=== PATIENT | female | born 1965 | race African-American/Black ===

== ENCOUNTER 2017-01-03 07:26 | Inpatient (IN) ==
[2017-01-03] MEDS ORDERED: ALBUTEROL 2.5 MG/3 ML NEB RESP TX PRN (07:50)
[2017-01-03] MEDS ORDERED: ONDANSETRON 4 MG/2 ML VIAL IV PRN (07:50)
[2017-01-03] MEDS ORDERED: NOREPINEPHRINE 8 MG in SODIUM CHLORIDE 0.9% 242 ML IV SCH (08:00)
--- NOTE | 2017-01-03 08:34 | Hospitalist History & Physical ---
Assessment and Plan (1) Cardiac arrest Status: Acute Assessment and plan: The patient's cardiac arrest was witnessed; CPR was initiated; however I feel that the patient's prognosis is poor; pupils are fixated.We will consult cardiology for further recommendations. Current Visit: Yes (2) Sepsis, unspecified organism Status: Resolved Assessment and plan: We will continue empiric antibiotics; repeat deluca cultures. Will initiate sepsis bundle. Current Visit: Yes (3) Pneumonia Status: Acute Assessment and plan: Will continue empiric antibiotics; pulmonary consulted requested. Current Visit: Yes Qualifiers: Pneumonia type: due to unspecified organism History of Present Illness Chief complaint: cardiac arrest History of present illness: This is a very poor and unfortunate 51 year old female that presented to the critical care unit at [facility] as a lateral transfer from [facility] for advanced level of care after witnessed cardiac arrest this morning. The patient has a very complex medical history significant for end-stage renal disease, depression, coronary artery disease, hyperparathyroidism, anemia, hypertension, and dyslipidemia. Apparently, the patient was at a gas station on this morning when she had an acute onset of shortness of breath and collapsed. Upon EMS arrival, she was found to be apneic and pulseless. CPR was initiated and she was found be in pulsesless electrical activity. She was defibrillate, then transported to [facility]. At the time of of arrival, she was intubated and found to be hypotensive and in ventricular fibrillation She was defibrillate and vocative agents were started. Labs were obtained; which were revealed a glucose at 386, creatinine at 5.5, chloride at 93, carbon dioxide at 20, magnesium at 2.4, AST at 70, alkaline phosphate 189. ABG reported PH at 7.24, PCO2 at 55, HCO3 at 23.6 on 100% FIO2. Cardiac panel revealed CK at 101, CK-MB at 2.6, myoglobin at 287, troponin I at 0.13, and Pro-BNP at >20,000. Urine drug screen was essentially unremarkable. Lactic acid was grossly elevated at 11.4. Blood cultures were obtained and empiric antibiotics were started. We were contacted by Dr. Elam regarding the transfer for advanced level of care. Upon discussion with both Dr. Elam and Dr. Jc, the patient will be transferred to [facility] to the hospitalist service. We will consult nephrology, pulmonary, and cardiology to assist with the management of the patient during the clinical encounter. Home Medications Medication Instructions Recorded Confirmed Type Carvedilol [Coreg] 25 mg PO BID 12/29/14 10/16/16 History Ferrous Sulfate 325 mg PO DAILY 12/29/14 10/16/16 History Insulin Glargine [Lantus] 37 unit SUBCUT BEDTIME 12/29/14 10/16/16 History NIFEdipine XL TAB [Procardia Xl] 90 mg PO DAILY 12/29/14 10/16/16 History Omeprazole 20 mg PO DAILY 12/29/14 10/16/16 History Rosuvastatin [Crestor] 20 mg PO DAILY 12/29/14 10/16/16 History Zolpidem Tartrate [Ambien] 10 mg PO BEDTIME 12/29/14 10/16/16 History traMADol TAB [Ultram] 50 mg PO Q6HR 12/29/14 10/16/16 History Cinacalcet HCl [Sensipar] 120 mg PO DAILY W/SUPPER 01/19/15 10/16/16 History Hydralazine HCl 100 mg PO TID 01/19/15 10/16/16 History Insulin Aspart [NovoLOG FlexPen] 0 unit SUBCUT DIRECTED PRN 01/19/15 History Aspirin EC Tab 81 mg PO DAILY tablet 01/20/15 10/16/16 Rx Calcium Carbonate/Vitamin D3 1 each PO DAILY 10/16/16 10/16/16 History [Calcium 600-Vit D3 400 Tablet] Citalopram Hydrobromide [Celexa] 10 mg PO DAILY 10/16/16 10/16/16 History Docusate Sodium Cap [Colace Cap] 100 mg PO DAILY 10/16/16 10/16/16 History Ibuprofen [Advil] 200 mg PO BID PRN 10/16/16 10/16/16 History Metoclopramide HCl 10 mg PO BID 10/16/16 10/16/16 History Sevelamer Carbonate Tab [Renvela 1,600 mg PO BID 10/16/16 10/16/16 History Tab] Sevelamer Carbonate Tab [Renvela 3,200 mg PO TID W/MEALS 10/16/16 10/16/16 History Tab] cefUROXime axetil [Cefuroxime] 250 mg PO BID 10/16/16 10/16/16 History Ticagrelor [Brilinta] 90 mg PO BID #60 tablet 10/17/16 Rx Allergies Allergy/AdvReac Type Severity Reaction Status Date / Time Penicillins Allergy Intermediate ITCHING Verified 10/16/16 10:38 Medical,Surgical,& Family Hx - Medical History Cardio: History of: MA Neurology: No history of: Seizures HEENT: History of: Eye Problem (wears eyeglasses) Endocrine: History of: Diabetes Mellitus (IDDM), Dyslipidemia Renal: History of: Dialysis (Friday, Friday, and Friday), Renal Failure, Renal Problems Gastrointestinal: History of: GERD (history of C-scope) Hematology: History of: Bleeding Problems (blood transfusion history) - Surgical History Cardiac Surgeries: Sugical HX of: Cardiac Catheterization (stents 2009) Abdominal Surgeries: Surgical HX of: Cholecystectomy Reproductive Surgeries: Surgical HX of;: Hysterectomy - Family History Family History: Reports;: Family Cancer, Family Diabetes, Family Hypertension - Social History Smoking Status: Never smoker ROS unobtainable: due to endotracheal tube Exam - Constitutional General appearance: normal weight, no acute distress - Head Head exam: Present: normal inspection, normocephalic, atraumatic - Eye Pupils: Present: fixed - ENT ENT exam: Present: normal exam, normal external ear exam, normal oropharynx - Neck Neck exam: Present: normal inspection. Absent: lymphadenopathy, meningismus, thyromegaly - Respiratory Respiratory exam: Present: decreased breath sounds (bilaterally) - Cardiovascular Cardiovascular exam: Present: regular rate and rhythm. Absent: carotid bruit, diastolic murmur, gallop, JVD, rubs, systolic murmur - GI/Abdominal GI/Abdominal exam: Present: normal bowel sounds, soft. Absent: firm, guarding - Extremities Exam Extremities exam: Present: edema (+3 left lower extremity) - Back Exam Back exam: Present: normal inspection - Neurological Exam Neurological exam: Present: altered, other (unresponsive) - Skin Skin exam: Present: normal color, warm, dry Results - Labs Labs: Labs completed at [facility]; reviewed.
[2017-01-03] MEDS ORDERED: GLUCAGON 1 MG VIAL IM PRN (09:16)
[2017-01-03] MEDS ORDERED: AMIODARONE 450 MG/9 ML VIAL IV ONE (09:20)
--- NOTE | 2017-01-03 09:23 | EKG Report ---
Stationary ECG Study [facility] Test Date: 01/03/2017 9:22:29 AM Pat Name: GERMAINE GALARZA Department: Room: 125 Gender: F Scenario Writer: KANCHAN : 1965 Requested by: Alma Rosa Jc Order Number: [id number] Reading MD: ADRY HOLLOWAY Intervals [place] Rate: 77 P: 84 HI: 168 QRS: 76 QRSD: 102 T: 86 QT: 467 QTc: 499 Interpretive Statements SINUS RHYTHM Electronically Signed On 01-03-17 17:26:50 CDT by ADRY HOLLOWAY [email or web address]
[2017-01-03] MEDS: AMIODARONE INJ 450 MG in DEXTROSE 5% 241 ML IV SCH ×2 (09:25→17:15)
[2017-01-03] MEDS ORDERED: ASPIRIN EC 325 MG TABLET PO SCH (09:30)
--- NOTE | 2017-01-03 09:36 | XRay Report ---
History: Shortness of breath Date: 01/03/2017 at 9:11 AM Study: Chest x-ray AP portable Comparison exam: October 15, 2016 The endotracheal tube is well positioned. A nasogastric tube enters the stomach. There is cardiomegaly. The pulmonary vasculature is slightly prominent and ill-defined. The mediastinal contours are unchanged. There is some patchy and hazy pulmonary edema in the mid to lower lungs bilaterally. There is trace pleural effusion. Osseous structures are unchanged. Impression: Cardiomegaly and evidence of congestive heart failure with alveolar pulmonary edema. The supporting tubes are well-positioned PROCEDURE INTERPRETED AT [facility] DEPARTMENT OF RADIOLOGY Final Report Signed by: Dr. Candelaria Truong
--- NOTE | 2017-01-03 09:43 | Ultrasound Report ---
Exam: Bilateral lower extremity venous Doppler ultrasound Comparison: None Clinical history: Leg edema Technique: Duplex scan of the lower extremity veins using B-mode/grayscale scaled imaging and Doppler spectral analysis and color flow. Findings: Major venous structures of the lower extremities demonstrate a normal course and caliber. Normal color-flow study and spectral analysis. There is normal compression and augmentation of bilateral common femoral, superficial femoral and popliteal veins. The proximal bilateral greater saphenous veins appear to be patent. Impression: No evidence to suggest deep venous thrombosis within either lower extremity. Ultrasound images were captured and stored. PROCEDURE INTERPRETED AT [facility] DEPARTMENT OF RADIOLOGY Final Report Signed by: Dr. Daya Noble
[2017-01-03 09:59] LABS: Basophils # 0.1 10*3/uL (0.0-0.2); Basophils % 0.4 % (0.0-0.8); Eosinophils % 0.3 % (0.00-10.9); Hematocrit 40.1 VOL% (35.7-47.0); Hemoglobin 11.9 GM/DL (12.0-16.0); Immature Granulocytes % 1.4 %; Immature Granulocytes Absolute 0.19 #; Lymphocytes # 1.5 10*3/uL (1.4-4.0); Lymphocytes % 11.2 % (21.3-54.2); Mean Corpuscular HGB Conc 29.7 GM/DL (32-36); Mean Corpuscular Hemoglobin 22 PG (27-34); Mean Corpuscular Volume 72.5 FL (87-102); Mean Platelet Volume 10.8 FL (9.6-12.0); Monocytes # 0.9 10*3/uL (0.11-0.8); Monocytes % 6.7 % (1.7-12.7); NRBC # 0.02 10*3/uL; Neutrophils # 10.7 10*3/uL (1.4-7.4); Platelet Count 327 T/CUMM (130-400); Red Blood Count 5.53 MC/CUMM (3.8-5.5); Red Cell Distribution Width 23.7 % (9.3-17.3); White Blood Count 13.3 T/CUMM (4-12)
[2017-01-03 10:05] LABS: ABG Base Excess -3.1 MMOL/L (-2.5-2.5); ABG HCO3 21.8 MMOL/L (20-26); ABG Oxygen Saturation 99.6 % (95-100); ABG PCO2 42.2 MM HG (35-48); ABG PH 7.336 (7.35-7.45); ABG TCO2 20.3 MMOL/L (23-27); Pt O2 Delivery Device Ventilator
[2017-01-03 10:06] LABS: INR 1.1
[2017-01-03 10:13] LABS: Partial Thromboplastin Time 31.4 SECS (0-40)
[2017-01-03 10:28] LABS: Hypochromasia 2+; Microcytosis 2+
[2017-01-03 10:32] LABS: Albumin 3.4 G/DL (3.4-5.0); Bilirubin,Total 0.5 MG/DL (0.2-1.0); Calcium 8.1 MG/DL (8.5-10.1); Total Protein 7.4 G/DL (6.4-8.3)
[2017-01-03 10:33] LABS: Magnesium 2.9 MG/DL (1.8-2.4); Osmolality,Calculated 298.5 MOS/KG (273-304); Potassium 5.1 MMOL/L (3.5-5.1); Risk Ratio 4.14; VLDL CHOLESTEROL 20.4 MG/DL
[2017-01-03 10:37] LABS: Troponin I Only 0.719 NG/ML (0.00-0.045)
--- NOTE | 2017-01-03 10:43 | CT Report ---
History: Decreased responsiveness. Hypoxic Date: 01/03/2017 Study: CT head without contrast Comparison exam: No previous Transaxial CT sections were obtained through the head without IV contrast. This CT exam was performed using one or more the following dose reduction techniques: Automated exposure control, adjustment of the MA and/or KV according to patient size, or use of iterative reconstruction technique. The ventricles are midline in position without evidence of hydrocephalus. There is no mass or parenchymal hemorrhage. There is no gross CT evidence of acute cortical stroke. There is no extra-axial hematoma. The paranasal sinuses are grossly clear. Impression: No acute intracranial process at this time PROCEDURE INTERPRETED AT [facility] DEPARTMENT OF RADIOLOGY Final Report Signed by: Dr. Candelaria Truong
--- NOTE | 2017-01-03 10:56 | CT Report ---
History: Respiratory failure. Hypoxia Date: 01/03/2017 Study: CT chest with IV contrast with pulmonary embolus technique Comparison exam: November 15, [address] sections were obtained through the lungs following the IV administration of 80 mL of Omnipaque 350 without immediate complication. Multiplanar reconstruction images are also evaluated. The CT exam was performed using one or more of the following dose reduction techniques: Automated exposure control, adjustment of the mA and/or kV according to patient size, or use of iterative reconstruction technique. There is no discrete filling defect within the pulmonary arterial tree to suggest acute pulmonary embolic disease. There is slightly suboptimal opacification of some of the peripheral branches of the pulmonary arterial tree related to contrast timing. There is no thoracic aortic aneurysm or dissection. The endotracheal tube is well positioned with its tip in the trachea superior to the reji. A nasogastric tube is positioned with the tip at the mid stomach body lumen level. There is mild to moderate coronary artery calcification with involvement of the left anterior descending and left circumflex coronary arteries. There is mild right greater than left pleural effusion. There is patchy and hazy airspace disease throughout both lungs compatible with pulmonary edema. There is some dependent atelectasis in the lower lobes. There is no pneumothorax. 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 The partially visualized upper abdomen is unremarkable. Impression: No evidence of acute pulmonary embolic disease. Pulmonary edema with mild bilateral pleural effusion. Coronary artery calcification. PROCEDURE INTERPRETED AT [facility] DEPARTMENT OF RADIOLOGY Final Report Signed by: Dr. Candelaria Truong
--- NOTE | 2017-01-03 10:57 | Pulmonology Consult Note ---
Assessment and Plan (1) Acute respiratory failure Status: Acute Assessment and plan: ABGs look okay. Will reduce ventilator settings. Manage the ventilator until we see what her mental status is white. Appears initially to be significant hypoxic brain injury. Current Visit: Yes (2) End stage renal disease Status: Chronic Assessment and plan: Renal is to see her and arrange dialysis as required. Current Visit: No (3) Coronary artery disease Status: Chronic Assessment and plan: Known previous myocardial infarction with stents. Unclear if she had a myocardial infarction associated with this. Cardiology is seen as well. Current Visit: No (4) Diabetes mellitus Status: Chronic Assessment and plan: Blood sugar of 341. Sliding scale to be ordered by primary service. Current Visit: No (5) Cardiac arrest Status: Acute Assessment and plan: Status post cardiac arrest apparently had ventricular tachycardia ventricular fibrillation. Initial evaluation would indicate hypoxic brain injury with dilated pupils. Plan is for [facility] and see if her mental status improved. Current Visit: Yes History of Present Illness Chief complaint: Post cardiac arrest History of present illness: Ms. Hollingsworth is a 51 year old female with end-stage renal disease on dialysis. She apparently had a cardiopulmonary arrest at a service station in [place] earlier this morning and had CPR at the scene and again at [facility]. She was transferred here and admitted to the CCU to the hospitalist service. She has a history of previous coronary stents. She apparently was taking Trileptal but was not taking it regularly. No other history available from the patient of course. At the present time she is on the ventilator and unresponsive. She does have a history of a previous myocardial infarction, diabetes mellitus, cardiac catheterization with stents in 2009. She has had a cholecystectomy and hysterectomy. Home Medications Medication Instructions Recorded Confirmed Type Carvedilol [Coreg] 25 mg PO BID 12/29/14 10/16/16 History Ferrous Sulfate 325 mg PO DAILY 12/29/14 10/16/16 History Insulin Glargine [Lantus] 37 unit SUBCUT BEDTIME 12/29/14 10/16/16 History NIFEdipine XL TAB [Procardia Xl] 90 mg PO DAILY 12/29/14 10/16/16 History Omeprazole 20 mg PO DAILY 12/29/14 10/16/16 History Rosuvastatin [Crestor] 20 mg PO DAILY 12/29/14 10/16/16 History Zolpidem Tartrate [Ambien] 10 mg PO BEDTIME 12/29/14 10/16/16 History traMADol TAB [Ultram] 50 mg PO Q6HR 12/29/14 10/16/16 History Cinacalcet HCl [Sensipar] 120 mg PO DAILY W/SUPPER 01/19/15 10/16/16 History Hydralazine HCl 100 mg PO TID 01/19/15 10/16/16 History Insulin Aspart [NovoLOG FlexPen] 0 unit SUBCUT DIRECTED PRN 01/19/15 History Aspirin EC Tab 81 mg PO DAILY tablet 01/20/15 10/16/16 Rx Calcium Carbonate/Vitamin D3 1 each PO DAILY 10/16/16 10/16/16 History [Calcium 600-Vit D3 400 Tablet] Citalopram Hydrobromide [Celexa] 10 mg PO DAILY 10/16/16 10/16/16 History Docusate Sodium Cap [Colace Cap] 100 mg PO DAILY 10/16/16 10/16/16 History Ibuprofen [Advil] 200 mg PO BID PRN 10/16/16 10/16/16 History Metoclopramide HCl 10 mg PO BID 10/16/16 10/16/16 History Sevelamer Carbonate Tab [Renvela 1,600 mg PO BID 10/16/16 10/16/16 History Tab] Sevelamer Carbonate Tab [Renvela 3,200 mg PO TID W/MEALS 10/16/16 10/16/16 History Tab] cefUROXime axetil [Cefuroxime] 250 mg PO BID 10/16/16 10/16/16 History Ticagrelor [Brilinta] 90 mg PO BID #60 tablet 10/17/16 Rx Allergies Allergy/AdvReac Type Severity Reaction Status Date / Time Penicillins Allergy Intermediate ITCHING Verified 10/16/16 10:38 ROS unobtainable: due to endotracheal tube, due to mental status Exam (Pulmonay) H&P - Constitutional Vitals: Pulse is 120 systolic blood pressure is 210 respirations that of the ventilator which is 12 and afebrile. She has a Arctic sun device in place to lower her temperature. Her pupils are dilated and nonreactive. Orotracheal tube is in place. She has some minimal twitching around her right eye. Neck is supple. Chest reveals some rales and rhonchi in the bases. Heart rapid rate no murmurs. It is regular. Abdomen obese unable to palpate abdominal organs. Extremities trace of peripheral edema. Medical,Surgical,& Family Hx - Medical History Cardio: History of: MD Neurology: No history of: Seizures HEENT: History of: Eye Problem (wears eyeglasses) Endocrine: History of: Diabetes Mellitus (IDDM), Dyslipidemia Renal: History of: Dialysis (Friday, Friday, and Friday), Renal Failure, Renal Problems Gastrointestinal: History of: GERD (history of C-scope) Hematology: History of: Bleeding Problems (blood transfusion history) - Surgical History Cardiac Surgeries: Sugical HX of: Cardiac Catheterization (stents 2009) Abdominal Surgeries: Surgical HX of: Cholecystectomy Reproductive Surgeries: Surgical HX of;: Hysterectomy - Family History Family History: Reports;: Family Cancer, Family Diabetes, Family Hypertension - Social History Smoking Status: Never smoker Results - Labs CBC & BMP: 01/03/17 09:43 01/03/17 09:43 Lab Results: I have reviewed the past 24 hour labs - Diagnostic Findings Procedure: CT - chest: image reviewed by me (Bilateral pleural effusions with some atelectasis in both lower lobes posteriorly I do not see pulmonary emboli. Await radiologist interpretation as well.)
[2017-01-03] MEDS ORDERED: LEVOFLOXACIN INJ 750 MG in PREMIX 1 EACH IV ONE (11:00)
--- NOTE | 2017-01-03 11:09 | Cardiology History & Physical ---
Assessment and Plan - Time spent with patient Time spent with patient: Greater than 30 minutes (1) Cardiac arrest Status: Acute Assessment and plan: See plan of care listed below Current Visit: Yes (2) Pneumonia Status: Acute Assessment and plan: See plan of care listed below Current Visit: Yes Qualifiers: Pneumonia type: due to unspecified organism (3) Pulmonary edema Status: Acute Assessment and plan: See plan of care listed below Current Visit: Yes (4) Secondary hyperparathyroidism Status: Chronic Assessment and plan: See plan of care listed below Current Visit: No (5) Anemia Status: Chronic Assessment and plan: See plan of care listed below Current Visit: No (6) Coronary artery disease Status: Chronic Assessment and plan: See plan of care listed below Current Visit: No (7) Diabetes mellitus Status: Chronic Assessment and plan: See plan of care listed below Current Visit: No (8) Dyslipidemia Status: Chronic Assessment and plan: See plan of care listed below Current Visit: No (9) End stage renal disease Status: Chronic Assessment and plan: See plan of care listed below Current Visit: No (10) Hypertension Status: Chronic Assessment and plan: See plan of care listed below Current Visit: No (11) S/P angioplasty with stent Status: Chronic Assessment and plan: See plan of care listed below Current Visit: No History of Present Illness Chief complaint: Cardiac arrest History of present illness: LOG RAFTER: DR. JUSTICE Ms. PhanHollingsworth, 51BF, routinely followed by Dr. Justice. She was last seen in cardiology clinic October 24, 2016. Risk factors include: Known coronary artery disease (status post PCI to the mid circumflex October 16, 2016 with MARY, EF 70%), hypertension, dyslipidemia, diabetes, obesity, sedentary lifestyle, PVD (known left internal carotid artery occlusion). End-stage renal disease requiring dialysis, hyperparathyroidism, anemia. Patient was received in lateral transfer from [facility] for advanced level of care after witnessed cardiac arrest this morning. She was feeling poorly this morning. She had complaints of chest pain, shortness of breath and diaphoresis. EMS was summoned however family took her in their car to meet the ambulance. She became unresponsive on the way to meet the ambulance but did not stop breathing nor lose a pulse until the ambulance arrived. CPR was initiated (first assessment was a heart rate of 50). She was intubated, shock and transported to the ER. In the emergency department at [facility]), she expands V. tach again. She was given amiodarone and has been maintained in normal sinus rhythm. Initially, she required pressors however her blood pressure at this point has been extremely high averaging 190/ 100. Heart rate 70s in normal sinus rhythm. The hypothermia protocol has been initiated within the 6 hour window of return of spontaneous circulation protocol. Note, when seen in cardiology clinic in October, patient had been taking Brilinta once day rather than twice daily because it made her feel poorly. At that point , the Brilinta was discontinued and Plavix was initiated. CT chest reveals no PE, lower extremity Dopplers have been negative. CT of head shows no active bleed or stroke. Chest x-ray reveals bilateral interstitial fluid consistent with pulmonary edema and possibly pneumonia. She has been started on antibiotics appropriately. Patient does not make urine therefore urinalysis cannot be obtained. Blood cultures have been obtained. Troponin 0.841. We will continue to follow. Maintain Amiodarone at this point as she did have V. tach requiring cardioversion. Monitor labs closely. Continue [employer] protocol. Of note, I called [facility] in [place], [place] regarding patient's prescriptions. SHE WAS GIVEN A PRESCRIPTION FOR PLAVIX 75MG ORALLY DAILY IN OCTOBER 2016. SHE DID OBTAIN THE FIRST PRESCRIPTION OCTOBER 29, 2016 BUT NEVER RETURNED FOR ADDITIONAL REFILLS. ASSESSMENT/PLAN: 1. CARDIAC ARREST - Now on ventilator without appropriate neurological response at this time. Neurology is on bypass. Poor prognosis. Pupils fixed and dilated. Continue with hypothermia protocol. Echo pending. 2. KNOWN CAD S/P PCI OCTOBER 16, 2016 - restarting Plavix, ASA. Follow CIEs, EKG 3. SEPSIS - BC pending, XRay - possible CAP, anuric. Currently on antibiotic coverage 4. PNEUMONIA - continue current plan of care 5. NON-COMPLIANCE - continue current plan of care 6. HYPERTENSION - Restarted Coreg. Will add Hydralazine now. Avoiding FREDI. 7. DYSLIDEMIA - add lipid lowering agent when liver enzymes stable 8. CKD - Nephrology consulted. Home Medications Medication Instructions Recorded Confirmed Type Carvedilol [Coreg] 25 mg PO BID 12/29/14 10/16/16 History Ferrous Sulfate 325 mg PO DAILY 12/29/14 10/16/16 History Insulin Glargine [Lantus] 37 unit SUBCUT BEDTIME 12/29/14 10/16/16 History NIFEdipine XL TAB [Procardia Xl] 90 mg PO DAILY 12/29/14 10/16/16 History Omeprazole 20 mg PO DAILY 12/29/14 10/16/16 History Rosuvastatin [Crestor] 20 mg PO DAILY 12/29/14 10/16/16 History Zolpidem Tartrate [Ambien] 10 mg PO BEDTIME 12/29/14 10/16/16 History traMADol TAB [Ultram] 50 mg PO Q6HR 12/29/14 10/16/16 History Cinacalcet HCl [Sensipar] 120 mg PO DAILY W/SUPPER 01/19/15 10/16/16 History Hydralazine HCl 100 mg PO TID 01/19/15 10/16/16 History Insulin Aspart [NovoLOG FlexPen] 0 unit SUBCUT DIRECTED PRN 01/19/15 History Aspirin EC Tab 81 mg PO DAILY tablet 01/20/15 10/16/16 Rx Calcium Carbonate/Vitamin D3 1 each PO DAILY 10/16/16 10/16/16 History [Calcium 600-Vit D3 400 Tablet] Citalopram Hydrobromide [Celexa] 10 mg PO DAILY 10/16/16 10/16/16 History Docusate Sodium Cap [Colace Cap] 100 mg PO DAILY 10/16/16 10/16/16 History Ibuprofen [Advil] 200 mg PO BID PRN 10/16/16 10/16/16 History Metoclopramide HCl 10 mg PO BID 10/16/16 10/16/16 History Sevelamer Carbonate Tab [Renvela 1,600 mg PO BID 10/16/16 10/16/16 History Tab] Sevelamer Carbonate Tab [Renvela 3,200 mg PO TID W/MEALS 10/16/16 10/16/16 History Tab] cefUROXime axetil [Cefuroxime] 250 mg PO BID 10/16/16 10/16/16 History Ticagrelor [Brilinta] 90 mg PO BID #60 tablet 10/17/16 Rx Allergies Allergy/AdvReac Type Severity Reaction Status Date / Time Penicillins Allergy Intermediate ITCHING Verified 10/16/16 10:38 ROS unobtainable: due to endotracheal tube, due to encephalopathy Medical,Surgical,& Family Hx - Medical History Cardio: History of: CAD, Hypertension, CT Neurology: No history of: Seizures HEENT: History of: Eye Problem (wears eyeglasses) Endocrine: History of: Diabetes Mellitus (IDDM), Dyslipidemia Renal: History of: Dialysis (Friday, Friday, and Friday), Renal Failure, Renal Problems Gastrointestinal: History of: GERD (history of C-scope) Hematology: History of: Bleeding Problems (blood transfusion history) - Surgical History Cardiac Surgeries: Sugical HX of: Cardiac Catheterization (stents 2009) Abdominal Surgeries: Surgical HX of: Cholecystectomy Reproductive Surgeries: Surgical HX of;: Hysterectomy - Family History Family History: Reports;: Family Cancer, Family Diabetes, Family Hypertension - Social History Smoking Status: Never smoker Cardiology Physical Exam - Constitutional Vitals: Intake and Output 01/02/17 01/03/17 01/03/17 23:59 07:59 15:59 Other: Weight 84.964 kg Patient Weight 01/03/17 23:59 Weight 84.964 kg Exam: General: [Intubated.] [Appears ill] [hypothermia protocol in place ] HEENT: [Pupils equal but nonreactive to light or accommodation. Dilated, fixed. Normocephalic. No jaundice noted. ] Neck: Difficult to assess for JVD due to habitus. No thyromegaly noted. Neck lymphadenopathy. No tracheal deviation. Cardiac: [Regular rate and rhythm.] [No obvious murmur rub or gallop.] Lungs: [Coarse sounds noted throughout. Symmetrical chest wall movements noted. Abdomen: Soft, bowel sounds normoactive. Nontender and nondistended. No abdominal bruit or thrill noted. No masses noted. Extremities: No clubbing, cyanosis noted. [ No edema noted.] Upper extremity pulses 2+. Lower extremity pulses 2+. Capillary refill less than 3 seconds. Skin: No unusual lesions or rashes. No skin breakdown appreciated. Neuro: Not responding to verbal or tactile stimuli. Pupils are fixed and dilated. She is having twitching of the right face and neck. Result/EKG - Labs CBC & BMP: 01/03/17 09:43 01/03/17 09:43 Lab Results: I have reviewed the past 24 hour labs Labs: Laboratory Results - last 24 hr 01/03/17 01/03/1717 09:43 09:43 09:43 WBC 13.3 H RBC 5.53 H Hgb 11.9 L Hct 40.1 MCV 72.5 L MCH 22 L MCHC 29.7 L RDW 23.7 H Plt Count 327 MPV 10.8 Neut % (Auto) 80.0 H Lymph % (Auto) 11.2 L Whitman % (Auto) 6.7 Eos % (Auto) 0.3 Baso % (Auto) 0.4 Neut # (Auto) 10.7 H Lymph # (Auto) 1.5 Whitman # (Auto) 0.9 H Eos # (Auto) 0.0 Baso # (Auto) 0.1 Immature Gran % 1.4 Nucleated RBC % 0.1 Immature Gran # 0.19 Nucleated RBCs # 0.02 Hypochromasia 2+ Microcytosis 2+ INR PT Patient/Control Mix Fibrinogen Circ Anticoag PTT ABG pH ABG pCO2 ABG pO2 ABG HCO3 ABG Total CO2 ABG O2 Saturation ABG Base Excess FiO2 Sodium 139 Potassium 5.1 Chloride 98 Carbon Dioxide 21 Anion Gap 25.1 H BUN 38 H Creatinine 8.50 H GFR Calculation 6 BUN/Creatinine Ratio 4.00 L Glucose 341 H Hemoglobin A1c Calculated Osmolality 298.5 Lactic Acid Calcium 8.1 L Magnesium 2.9 H Total Bilirubin 0.50 AST 132 H ALT 57 H Alkaline Phosphatase 271 H Troponin I 0.719 H B-Natriuretic Peptide 727 H Total Protein 7.4 Albumin 3.4 Globulin 4.0 H Albumin/Globulin Ratio 0.8 L Triglycerides 102 Cholesterol 174 LDL Cholesterol 101.0 VLDL Cholesterol 20.4 HDL Cholesterol 42 Heart Disease Risk Ratio 4.14 01/03/17 01/03/17 01/03/17 09:43 09:43 09:43 WBC RBC Hgb Hct MCV MCH MCHC RDW Plt Count MPV Neut % (Auto) Lymph % (Auto) Whitman % (Auto) Eos % (Auto) Baso % (Auto) Neut # (Auto) Lymph # (Auto) Whitman # (Auto) Eos # (Auto) Baso # (Auto) Immature Gran % Nucleated RBC % Immature Gran # Nucleated RBCs # Hypochromasia Microcytosis INR 1.1 PT Patient/Control Mix 12.0 Fibrinogen Circ Anticoag PTT ABG pH ABG pCO2 ABG pO2 ABG HCO3 ABG Total CO2 ABG O2 Saturation ABG Base Excess FiO2 Sodium Potassium Chloride Carbon Dioxide Anion Gap BUN Creatinine GFR Calculation BUN/Creatinine Ratio Glucose Hemoglobin A1c 7.5 H Calculated Osmolality Lactic Acid 7.8 H Calcium Magnesium Total Bilirubin AST ALT Alkaline Phosphatase Troponin I B-Natriuretic Peptide Total Protein Albumin Globulin Albumin/Globulin Ratio Triglycerides Cholesterol LDL Cholesterol VLDL Cholesterol HDL Cholesterol Heart Disease Risk Ratio 01/03/17 01/03/17 01/03/17 09:43 09:44 10:00 WBC RBC Hgb Hct MCV MCH MCHC RDW Plt Count MPV Neut % (Auto) Lymph % (Auto) Whitman % (Auto) Eos % (Auto) Baso % (Auto) Neut # (Auto) Lymph # (Auto) Whitman # (Auto) Eos # (Auto) Baso # (Auto) Immature Gran % Nucleated RBC % Immature Gran # Nucleated RBCs # Hypochromasia Microcytosis INR PT Patient/Control Mix Fibrinogen 439 H Circ Anticoag PTT 31.4 ABG pH 7.336 L ABG pCO2 42.2 ABG pO2 480.0 H ABG HCO3 21.8 ABG Total CO2 20.3 L ABG O2 Saturation 99.6 ABG Base Excess -3.1 L FiO2 100.00 Sodium Potassium Chloride Carbon Dioxide Anion Gap BUN Creatinine GFR Calculation BUN/Creatinine Ratio Glucose Hemoglobin A1c Calculated Osmolality Lactic Acid Calcium Magnesium Total Bilirubin AST ALT Alkaline Phosphatase Troponin I 0.841 H B-Natriuretic Peptide Total Protein Albumin Globulin Albumin/Globulin Ratio Triglycerides Cholesterol LDL Cholesterol VLDL Cholesterol HDL Cholesterol Heart Disease Risk Ratio - Diagnostic Findings Procedure: Chest x-ray: report reviewed by me, CT: report reviewed by me, Ultrasound: report reviewed by me (Venous ultrasound) - EKG EKG results: interpreted by me EKG shows: sinus rhythm
[2017-01-03] MEDS ORDERED: VANCOMYCIN INJ 1,250 MG in SODIUM CHLORIDE 0.9% 250 ML IV PRN (11:13)
[2017-01-03] MEDS: ALBUTEROL/IPRATROPIUM 3 ML NEB RESP TX SCH ×3 (11:42→20:42)
--- NOTE | 2017-01-03 12:06 | Nephrology Consult Note ---
History of Present Illness Chief complaint: ESRD in a patient admitted with cardiac arrest History of present illness: Ms. Hollingsworth is a 51 year old female who dialyzes on a Friday basis in [facility]. The patient awoke this morning around 440 calling her sister and telling her she was having some shortness of breath. Later on she was at a gas station in her local area when she became unresponsive and had to have CPR administered. The patient was intubated by EMS personnel and brought to her local emergency room where she suffered another cardiac arrest and had readministration of cPR. The patient also received Levophed electrocardio version and amiodarone during her resuscitation efforts. The history is taken from the chart and from the family members as the patient is unable to contribute to the history. The patient's father was visiting with the patient about 2 days prior to her admission and apparently at that time she was complaining of some swelling in her legs. The patient has a history of coronary artery stenting in 2009 and had a heart catheterization done a few months ago which revealed the stents to be open but some progression of coronary artery disease that was to be managed medically. Review of systems unable be obtained due to patient's medical condition. Home Medications Medication Instructions Recorded Confirmed Type Carvedilol [Coreg] 25 mg PO BID 12/29/14 10/16/16 History Ferrous Sulfate 325 mg PO DAILY 12/29/14 10/16/16 History Insulin Glargine [Lantus] 37 unit SUBCUT BEDTIME 12/29/14 10/16/16 History NIFEdipine XL TAB [Procardia Xl] 90 mg PO DAILY 12/29/14 10/16/16 History Omeprazole 20 mg PO DAILY 12/29/14 10/16/16 History Rosuvastatin [Crestor] 20 mg PO DAILY 12/29/14 10/16/16 History Zolpidem Tartrate [Ambien] 10 mg PO BEDTIME 12/29/14 10/16/16 History traMADol TAB [Ultram] 50 mg PO Q6HR 12/29/14 10/16/16 History Cinacalcet HCl [Sensipar] 120 mg PO DAILY W/SUPPER 01/19/15 10/16/16 History Hydralazine HCl 100 mg PO TID 01/19/15 10/16/16 History Insulin Aspart [NovoLOG FlexPen] 0 unit SUBCUT DIRECTED PRN 01/19/15 History Aspirin EC Tab 81 mg PO DAILY tablet 01/20/15 10/16/16 Rx Calcium Carbonate/Vitamin D3 1 each PO DAILY 10/16/16 10/16/16 History [Calcium 600-Vit D3 400 Tablet] Citalopram Hydrobromide [Celexa] 10 mg PO DAILY 10/16/16 10/16/16 History Docusate Sodium Cap [Colace Cap] 100 mg PO DAILY 10/16/16 10/16/16 History Ibuprofen [Advil] 200 mg PO BID PRN 10/16/16 10/16/16 History Metoclopramide HCl 10 mg PO BID 10/16/16 10/16/16 History Sevelamer Carbonate Tab [Renvela 1,600 mg PO BID 10/16/16 10/16/16 History Tab] Sevelamer Carbonate Tab [Renvela 3,200 mg PO TID W/MEALS 10/16/16 10/16/16 History Tab] cefUROXime axetil [Cefuroxime] 250 mg PO BID 10/16/16 10/16/16 History Ticagrelor [Brilinta] 90 mg PO BID #60 tablet 10/17/16 Rx Allergies Allergy/AdvReac Type Severity Reaction Status Date / Time Penicillins Allergy Intermediate ITCHING Verified 10/16/16 10:38 Medical,Surgical,& Family Hx - Medical History Cardio: History of: CT Neurology: No history of: Seizures HEENT: History of: Eye Problem (wears eyeglasses) Endocrine: History of: Diabetes Mellitus (IDDM), Dyslipidemia Renal: History of: Dialysis (Friday, Friday, and Friday), Renal Failure, Renal Problems Gastrointestinal: History of: GERD (history of C-scope) Hematology: History of: Bleeding Problems (blood transfusion history) - Surgical History Cardiac Surgeries: Sugical HX of: Cardiac Catheterization (stents 2009) Abdominal Surgeries: Surgical HX of: Cholecystectomy Reproductive Surgeries: Surgical HX of;: Hysterectomy - Family History Family History: Reports;: Family Cancer, Family Diabetes, Family Hypertension - Social History Smoking Status: Never smoker Frequency of Alcohol Use: None Exam - Vital Signs Vital signs: Period Temp Pulse Resp BP Sys/Trejo Pulse Ox Last 24 Hr 72-74 13-15 95-96 Results - Labs CBC & BMP: 01/03/17 09:43 01/03/17 09:43 Assessment and Plan (1) Pulmonary edema Status: Acute Assessment and plan: This patient has some increased interstitial markings possibly related to pneumonia versus, at this point with her cardiac arrest 2 and tenuous status I am going to hold on dialyzing her until tomorrow. Patient is oxygenating okay presently. Current Visit: Yes (2) Acute respiratory failure Status: Acute Assessment and plan: Continue vent support Current Visit: Yes (3) Cardiac arrest Status: Acute Current Visit: Yes (4) Secondary hyperparathyroidism Status: Acute Current Visit: No (5) Anemia Status: Chronic Current Visit: No (6) Coronary artery disease Status: Chronic Current Visit: No (7) Diabetes mellitus Status: Chronic Current Visit: No (8) Dyslipidemia Status: Chronic Current Visit: No (9) End stage renal disease Status: Chronic Assessment and plan: We will plan on hemodialysis tomorrow Current Visit: No (10) Hypertension Status: Chronic Current Visit: No (11) S/P angioplasty with stent Status: Chronic Current Visit: No
[2017-01-03 12:45] LABS: ABG Base Excess -3.9 MMOL/L (-2.5-2.5); ABG HCO3 21.1 MMOL/L (20-26); ABG Oxygen Saturation 93.9 % (95-100); ABG PCO2 51.5 MM HG (35-48); ABG PH 7.268 (7.35-7.45); ABG PO2 88.2 MM HG (80-95); ABG TCO2 21.4 MMOL/L (23-27); Pt O2 Delivery Device Ventilator
[2017-01-03] MEDS ORDERED: CLOPIDOGREL 75 MG TABLET PO ONE (12:58)
[2017-01-03] MEDS ORDERED: MIDAZOLAM 2 MG/2 ML VIAL IV ONE (13:01)
[2017-01-03] MEDS ORDERED: POTASSIUM CHLORIDE RIDER 20 MEQ in PREMIX 1 EACH IV PRN (13:01)
[2017-01-03] MEDS ORDERED: MAGNESIUM SULF RIDER 2 GM in PREMIX 1 EACH IV ONE (13:01)
[2017-01-03] MEDS: INSULIN LISPRO 100 UNIT/ML SUBCUT SCH ×2 (13:11→15:20)
[2017-01-03] MEDS ORDERED: fentaNYL 100 MCG/2 ML VIAL IV ONE (13:31)
[2017-01-03] MEDS: PANTOPRAZOLE 40 MG VIAL IV SCH (13:55)
[2017-01-03] MEDS: ENOXAPARIN 30 MG/0.3 ML SYRINGE SUBCUT SCH (13:56)
[2017-01-03] MEDS: SODIUM CHLORIDE 0.9% 1,000 ML IV SCH ×2 (13:56→23:35)
[2017-01-03] MEDS: CARVEDILOL 25 MG TABLET PO SCH ×2 (13:57→21:21)
[2017-01-03] MEDS ORDERED: HEPARIN/NACL 0.9% 2 UNITS/ML 500 ML IV ONE (14:18)
[2017-01-03] MEDS: CISATRACURIUM 200 MG in SODIUM CHLORIDE 0.9% 100 ML IV SCH (14:41)
[2017-01-03] MEDS: hydrALAZINE 25 MG TABLET PO SCH ×3 (14:42→21:21)
[2017-01-03] MEDS: fentaNYL INJ 1,250 MCG in SODIUM CHLORIDE 0.9% 225 ML IV SCH (14:53)
[2017-01-03] MEDS: MIDAZOLAM 100 MG in SODIUM CHLORIDE 0.9% 80 ML IV SCH (14:57)
[2017-01-03] MEDS ORDERED: VANCOMYCIN INJ 750 MG in SODIUM CHLORIDE 0.9% 250 ML IV PRN (15:13)
[2017-01-03] MEDS: INSULIN REGULAR DRIP 100 ML IV SCH (15:17)
--- NOTE | 2017-01-03 15:49 | Operative Note ---
Date of procedure: 01/03/17 Pre-op diagnosis: Inadequate venous access Post-op diagnosis: same Procedure: Preoperative diagnosis Inadequate venous access Postoperative diagnosis Same Procedures performed Right internal jugular central line placement Ultrasound guidance and interpretation of images Findings The right internal jugular vein was compressible and was accessed on first stick with venous nonpulsatile blood return. Wire placement was confirmed with ultrasound and the vein was accessed under ultrasound guidance. The catheter was placed at 15 centimeters at the skin level. Complications None apparent Specimen None Anesthesia Local 10 cc lidocaine Indication Inadequate venous access Description of procedure The patient was placed in supine position in his ICU bed. The neck was prepped with chlorhexidine and draped sterilely. Timeout was called. Ultrasound was used to identify the vascular structures in the right neck. The jugular vein is compressible. Local anesthetic was administered under ultrasound guidance. The vein was accessed with a needle on the first attempt under ultrasound guidance. Venous nonpulsatile blood return was obtained. A wire was passed easily into the venous system and placement was confirmed again with ultrasound. A skin incision was made alongside the wire and the dilator was placed over the wire. Seldinger technique was used to place a triple-lumen catheter and it was threaded over the wire up to 15 centimeters at the skin. The catheter was sewn in place at this location. All 3 lm returned blood easily and were flushed with saline. The catheter was sewn in place with 3-0 silk sutures in a Biopatch sterile dressing was placed with Tegaderm. Postoperative plan Chest x-ray Implants: Triple-lumen catheter Surgeon / Physician: Jared Nava Estimated blood loss: none Specimens: none sent Condition: critical Disposition: no change Results - Labs CBC & BMP: 01/03/17 09:43 01/03/17 09:43 Discharge Plan - Discharge Medications No Action Zolpidem Tartrate [Ambien] 10 mg PO BEDTIME traMADol TAB [Ultram] 50 mg PO Q6HR Omeprazole 20 mg PO DAILY NIFEdipine XL TAB [Procardia Xl] 90 mg PO DAILY Insulin Glargine [Lantus] 37 unit SUBCUT BEDTIME Ferrous Sulfate 325 mg PO DAILY Rosuvastatin [Crestor] 20 mg PO DAILY Carvedilol [Coreg] 25 mg PO BID Cinacalcet HCl [Sensipar] 120 mg PO DAILY W/SUPPER Hydralazine HCl 100 mg PO TID Insulin Aspart [NovoLOG FlexPen] 0 unit SUBCUT DIRECTED PRN PRN Reason: elevated blood sugars Aspirin EC Tab 81 mg PO DAILY tablet Sevelamer Carbonate Tab [Renvela Tab] 1,600 mg PO BID Sevelamer Carbonate Tab [Renvela Tab] 3,200 mg PO TID W/MEALS Metoclopramide HCl 10 mg PO BID cefUROXime axetil [Cefuroxime] 250 mg PO BID Calcium Carbonate/Vitamin D3 [Calcium 600-Vit D3 400 Tablet] 1 each PO DAILY Ibuprofen [Advil] 200 mg PO BID PRN PRN Reason: Pain Docusate Sodium Cap [Colace Cap] 100 mg PO DAILY Citalopram Hydrobromide [Celexa] 10 mg PO DAILY Ticagrelor [Brilinta] 90 mg PO BID #60 tablet - Follow Up or Referral - Forms/Instructions
[2017-01-03] MEDS: NOREPINEPHRINE 8 MG in SODIUM CHLORIDE 0.9% 242 ML IV SCH (16:23)
--- NOTE | 2017-01-03 16:25 | XRay Report ---
XR chest 1V portable Indication: Central line placement. Comparison: Chest x-ray 01/03/2017; 0911 hours. Technique: Portable AP chest was performed. Findings: NG tube remains present terminating within the gastric fundus. A second tube or device appears coiled upon itself the apex of the device near the reji. Right IJ central venous catheter terminates within the right subclavian vein. Endotracheal tube is present and terminates at the sternoclavicular junction. Worsened consolidation of airspace opacity is noted in the right perihilar region. The left cardiophrenic angle is no longer identified and air bronchograms are suggested within the left lung base. Borderline cardiomegaly is stable. Bones soft tissues demonstrate no significant change. Impression: 1. Worsened volume overload and/or pulmonary edema is suggested. 2. Right IJ central venous catheter terminates within the right subclavian vein. 3. Some form of tube possibly temperature probe projects within the central chest and is coiled upon itself. The tip lies above the superior margin of the image. 4. Endotracheal tube appears to terminate at the sternoclavicular junction. Findings were discussed with Dr. Nava at 1623 hours, date of exam. 01/03/2017 4:14 PM PROCEDURE INTERPRETED AT [facility] DEPARTMENT OF RADIOLOGY Final Report Signed by: Dr. Chris Alvarez
[2017-01-03] MEDS ORDERED: VANCOMYCIN INJ 1,250 MG in SODIUM CHLORIDE 0.9% 250 ML IV ONE (17:00)
[2017-01-03 17:24] LABS: INR 1.3; PT Patient Result 14.3 SECS
[2017-01-03 17:52] LABS: Calcium 6.9 MG/DL (8.5-10.1); Magnesium 2.3 MG/DL (1.8-2.4); Osmolality,Calculated 308.5 MOS/KG (273-304); Phosphorous 6.5 MG/DL (2.5-4.9); Potassium 3.4 MMOL/L (3.5-5.1)
[2017-01-03 17:53] LABS: Lactic Acid 4.3 MMOL/L (0.4-2.0)
[2017-01-03] MEDS: ROSUVASTATIN 20 MG TABLET PO SCH (21:21)
[2017-01-03] MEDS: MINERAL OIL/PETROLATUM OPH OINT 3.5 GM TUBE BOTH EYES SCH (21:36)
--- NOTE | 2017-01-03 21:45 | Event Note ---
late entry procedure note from 4:30 pm I attempted to place right radial a-line with sterile technique but was unsuccessful. Next I attempted to place right femoral a-line, again with sterile technique, but was unsuccessful in cannulating the artery. Then, we received word (that was later rescinded) that we could not use the [facility] TLC that Dr Nava had placed, so I attempted to place a femoral TLC with sterile technique. I did cannulate the vein but was not able to thread the wire. When I withdrew there was a small hematoma at the site. Pressure was held and the nurses are monitoring the right groin for hematoma.
[2017-01-03] MEDS: cloNIDine 0.1 MG TABLET PO PRN (23:29)
[2017-01-03 23:30] LABS: Calcium 7.8 MG/DL (8.5-10.1); Magnesium 2.6 MG/DL (1.8-2.4); Osmolality,Calculated 306.1 MOS/KG (273-304); Phosphorous 6.2 MG/DL (2.5-4.9); Potassium 3.6 MMOL/L (3.5-5.1)
[2017-01-03 23:44] LABS: INR 1.3; PT Patient Result 13.8 SECS
[2017-01-04] MEDS: ALBUTEROL/IPRATROPIUM 3 ML NEB RESP TX SCH ×6 (00:27→19:39)
[2017-01-04] MEDS: cloNIDine 0.1 MG TABLET PO PRN ×2 (01:09→02:45)
[2017-01-04 03:32] LABS: Allen Test Positive; Pt O2 Delivery Device Ventilator
[2017-01-04 03:33] LABS: ABG Base Excess -1.4 MMOL/L (-2.5-2.5); ABG HCO3 23.8 MMOL/L (20-26); ABG PCO2 42.1 MM HG (35-48); ABG PH 7.371 (7.35-7.45); ABG PO2 80.5 MM HG (80-95); ABG TCO2 25.1 MMOL/L (23-27)
[2017-01-04] MEDS: INSULIN REGULAR DRIP 100 ML IV SCH ×2 (04:03→15:27)
[2017-01-04 04:38] LABS: Basophils % 0.1 % (0.0-0.8); Eosinophils % 0.1 % (0.00-10.9); Hematocrit 33.3 VOL% (35.7-47.0); Immature Granulocytes % 0.6 %; Immature Granulocytes Absolute 0.08 #; Lymphocytes # 0.7 10*3/uL (1.4-4.0); Lymphocytes % 5.6 % (21.3-54.2); Mean Corpuscular Hemoglobin 21 PG (27-34); Mean Corpuscular Volume 70.7 FL (87-102); Mean Platelet Volume 10.8 FL (9.6-12.0); Monocytes # 0.6 10*3/uL (0.11-0.8); Monocytes % 4.9 % (1.7-12.7); Neutrophils % 88.7 % (38.7-73.9); Platelet Count 281 T/CUMM (130-400); Red Blood Count 4.71 MC/CUMM (3.8-5.5); Red Cell Distribution Width 23.2 % (9.3-17.3); White Blood Count 12.4 T/CUMM (4-12)
[2017-01-04 04:45] LABS: Lactic Acid 4.1 MMOL/L (0.4-2.0)
[2017-01-04 05:09] LABS: Alanine Aminotransferase 51 U/L (13-56); Albumin 2.7 G/DL (3.4-5.0); Alkaline Phosphatase 220 U/L (45-117); Aspartate Amino Transferase 276 U/L (0-37); Bilirubin,Total < 0.39 MG/DL (0.2-1.0); Blood Urea Nitrogen 49 MG/DL (7-18); Calcium 8.1 MG/DL (8.5-10.1); Glucose 141 MG/DL (74-106); Magnesium 2.6 MG/DL (1.8-2.4); Osmolality,Calculated 300.8 MOS/KG (273-304); Phosphorous 5.9 MG/DL (2.5-4.9); Potassium 3.2 MMOL/L (3.5-5.1); Sodium 144 MMOL/L (136-145); Total Protein 6.3 G/DL (6.4-8.3)
--- NOTE | 2017-01-04 07:31 | Pulmonology Progress Note ---
Pulmonary - PN: Subj Interval history: This 51-year-old lady had a cardiac arrest outside the hospital. She is a dialysis patient and is receiving dialysis this morning. Her blood pressures now in the 160-170 range. She is off pressors. She was on some IV saline which I have stopped this morning. ABGs look okay. She is on Arctic swollen for now so we will not try to wean her from the ventilator at this time. Exam (Progress Note) - Constitutional Vitals: Period Temp Pulse Resp BP Sys/Trejo Pulse Ox Last 24 Hr 91.0 F-96.7 F 50-79 12-16 160-218/57-91 64-100 Exam: Pulse is about 50 temperature 91.2. Patient is on Arctic sun. Systolic blood pressure in the 170s. Face is symmetrical. Orotracheal tube in place. Neck supple. Chest reveals some rales bilaterally. Heart rate is around 50 no murmurs. Abdomen no masses. Bowel sounds decreased. Extremities she does have 1+ peripheral edema. Results - Labs CBC & BMP: 01/04/17 04:00 01/04/17 04:00 Lab Results: I have reviewed the past 24 hour labs - Diagnostic Findings Procedure: Chest x-ray: image reviewed by me, pending (Pulmonary edema and pretty much a bat wing fashion. Right IJ line turned out into the subclavian vein but it is functioning. ) Assessment and Plan (1) Acute respiratory failure Status: Acute Assessment and plan: ABGs look okay. Will reduce ventilator settings. Manage the ventilator until we see what her mental status is white. Appears initially to be significant hypoxic brain injury. 01/04/2017 ABGs acceptable. Cannot wean at this point. She has significant hypoxic brain injury it appears. Need to finish the Arctic sun protocol before considering any weaning process. Current Visit: Yes (2) End stage renal disease Status: Chronic Assessment and plan: Renal is to see her and arrange dialysis as required. 01/04/2017 patient undergoing dialysis at present. Hopefully this will help with her pulmonary edema. Current Visit: No (3) Coronary artery disease Status: Chronic Assessment and plan: Known previous myocardial infarction with stents. Unclear if she had a myocardial infarction associated with this. Cardiology is seeing as well. Current Visit: No (4) Diabetes mellitus Status: Chronic Assessment and plan: Blood sugar of 341. Sliding scale to be ordered by primary service. 01/04/2017 blood sugars look better. Current Visit: No (5) Cardiac arrest Status: Acute Assessment and plan: Status post cardiac arrest apparently had ventricular tachycardia ventricular fibrillation. Initial evaluation would indicate hypoxic brain injury with dilated pupils. Plan is for Arctic sun and see if her mental status improved. 01/04/2017 post cardiac arrest outside hospital. Appears to have significant brain injury. Continue Arctic sun protocol did not reevaluate neurology cortes in a couple of days Current Visit: Yes
--- NOTE | 2017-01-04 07:42 | ECHO Report ---
Jessica Hollingsworth Exam Date: 01/03/2017 11:17 Referring Physician: Technologist: Justina Hammond RDCS Age: 51 Ht (in): 66 Wt (lb): 187 Gender: F Exam Location: [facility] Echo Indications: Shortness of breath, Chest pain, unspecified BP: 186 / 70 HR: 77 Rhythm: Sinus Technical Quality: Fair IMPRESSIONS Mildly increased left ventricular cavity size. Mild left ventricular hypertrophy. Left ventricular ejection fraction is estimated at 50 %. The right ventricle is normal in size and function. Moderately increased right atrial size. Moderately increased left atrial size. Thickened mitral valve. Mild mitral annular calcification. Trace mitral valve regurgitation. Moderate aortic valve calcification. No aortic valve regurgitation. No aortic valve stenosis. Morphologically normal tricuspid valve. Mild tricuspid valve regurgitation. Tricuspid regurgitation velocities suggest a PAP of 93 mmHg. Morphologically normal pulmonic valve. Mild pulmonary valve regurgitation. Normal pericardium without effusion. Normal ascending aorta dimension. MEASUREMENTS (Male / Female) Normal Values 2D ECHO LV Diastolic Diameter PLAX 5.1 cm 4.2 - 5.9 / 3.9 - 5.3 cm LV Systolic Diameter PLAX 3.8 cm LV Fractional Shortening PLAX 25.9 % IVS Diastolic Thickness 1.1 cm 0.6 - 1.0 / 0.6 - 0.9 cm LVPW Diastolic Thickness 1.6 cm 0.6 - 1.0 / 0.6 - 0.9 cm RV Internal Dim ED PLAX 3.2 cm Aortic Root Diameter 3.0 cm LA Systolic Diameter LX 4.0 cm 3.0 - 4.0 / 2.7 - 3.8 cm DOPPLER TR Peak Velocity 455.0 cm/s TR Peak Gradient 82.8 mmHg FINDINGS Left Ventricle Mildly increased left ventricular cavity size. Mild left ventricular hypertrophy. Left ventricular ejection fraction is estimated at 50 %. Right Ventricle The right ventricle is normal in size and function. Right Atrium Moderately increased right atrial size. Left Atrium Moderately increased left atrial size. Mitral Valve Thickened mitral valve. Mild mitral annular calcification. Trace mitral valve regurgitation. Aortic Valve Moderate aortic valve calcification. No aortic valve regurgitation. No aortic valve stenosis. Tricuspid Valve Morphologically normal tricuspid valve. Mild tricuspid valve regurgitation. Tricuspid regurgitation velocities suggest a PAP of 93 mmHg. Pulmonic Valve Morphologically normal pulmonic valve. Mild pulmonary valve regurgitation. Pericardium Normal pericardium without effusion. Aorta Normal ascending aorta dimension. Tito Garcia MD (Electronically Signed) Final Date: 04 Jan 2017 07:41
[2017-01-04] MEDS: PANTOPRAZOLE 40 MG VIAL IV SCH (07:58)
--- NOTE | 2017-01-04 08:16 | XRay Report ---
XR chest 1V portable Indication: Shortness of breath Comparison: Chest x-ray 01/03/2017 Technique: Portable AP chest was performed. Findings: Multiple tubes and medical support devices appear stable. Temperature probe remains coiled within the upper esophagus apex at the level of the cervicothoracic junction. Diffuse airspace disease within the right lung as well as left perihilar lung and left lower lobe is again demonstrated. Airspace disease in the right minimally worsened in the right infrahilar lung. Heart size is stable. Impression: 1. Appearance of the chest is most suggestive of alveolar pulmonary edema. 2. Possible temperature probe remains coiled within the esophagus. 01/04/2017 8:12 AM PROCEDURE INTERPRETED AT [facility] DEPARTMENT OF RADIOLOGY Final Report Signed by: Dr. Chris Alvarez
--- NOTE | 2017-01-04 08:57 | Hospitalist Progress Note ---
Assessment and Plan - Time spent with patient Time spent with patient: Greater than 30 minutes (1) Cardiac arrest Status: Acute Assessment and plan: Patient sustained [id number] cardiac arrest. She has been followed by cardiology. She is on amiodarone infusion. She is also under the hypothermia protocol. Neurological responses and appropriate. Neurology is on bypass present. Continue current care. Current Visit: Yes (2) End stage renal disease Status: Chronic Assessment and plan: Patient has end-stage renal disease and is currently receiving hemodialysis. Nephrology is assisting. Current Visit: No (3) Hypertension Status: Chronic Assessment and plan: Patient has history of chronic essential hypertension. Blood pressure currently stable. Current Visit: No (4) Diabetes mellitus Status: Chronic Assessment and plan: Patient is currently on insulin infusion with good control of blood sugars. Likely can discontinue and place on Accu-Cheks with subcutaneous sliding scale. Current Visit: No (5) Pneumonia Status: Acute Assessment and plan: Questionable pneumonia on admission. She is been cultured and placed on empiric IV antibiotics. Current Visit: Yes Qualifiers: Pneumonia type: due to unspecified organism (6) Acute respiratory failure Status: Acute Assessment and plan: Acute respiratory failure secondary to arrest. Continuing ventilatory support. Pulmonary is assisting with her care. Current Visit: Yes Hospitalist: Subjective Interval history: Chart has been reviewed and patient examined. This is a 51-year-old female who sustained hospital cardiac arrest. She is being followed by nephrology for end- stage renal disease, pulmonary for ventilatory support and cardiology for her cardiac arrest. She remains unresponsive. She is undergoing cooling protocol. She is requiring no pressors at this time. Exam - Constitutional Vitals: Period Temp Pulse Resp BP Sys/Trejo Pulse Ox Last 24 Hr 91.0 F-94.1 F 50-79 12-16 97-218/49-91 64-100 General appearance: no acute distress - Head Head exam: Present: normocephalic, atraumatic - Eye Pupils: Present: dilated, fixed - ENT ENT exam: Present: other (ET tube in place) - Neck Neck exam: Present: normal inspection - Respiratory Respiratory exam: Present: rales (Few rales bilaterally) - Cardiovascular Cardiovascular exam: Present: bradycardia, regular rate and rhythm - GI/Abdominal GI/Abdominal exam: Present: normal bowel sounds, soft. Absent: tenderness, rebound - Extremities Exam Extremities exam: Present: edema (Mild peripheral edema). Absent: calf tenderness - Neurological Exam Neurological exam: Present: other (Unresponsive to all stimuli) Results - Labs CBC & BMP: 01/04/17 04:00 01/04/17 04:00 Lab Results: I have reviewed the past 24 hour labs - Diagnostic Findings Procedure: Chest x-ray: report reviewed by me
[2017-01-04] MEDS: CARVEDILOL 25 MG TABLET PO SCH ×2 (09:10→21:08)
[2017-01-04] MEDS: hydrALAZINE 25 MG TABLET PO SCH ×4 (09:11→21:08)
--- NOTE | 2017-01-04 09:11 | Cardiology Progress Note ---
Assessment and Plan (1) Cardiac arrest Status: Acute Assessment and plan: 01/04: Patient had a witnessed cardiac arrest outside the hospital. She is currently unresponsive on support. There is some question as to whether she had been taking her medications as prescribed. Certainly stent thrombosis has to be considered particularly if she was not taking her Plavix. Current Visit: Yes (2) Coronary artery disease Status: Chronic Current Visit: No Cardiology - PN: Subj Interval history: Patient is unchanged clinically. She is being dialyzed currently. There are reports that she was not taking her Plavix. She had percutaneous intervention about 8 weeks ago. She will have been high risk for acute closure of her stent if she were not taking her medications as prescribed. I do not know that she had acute closure but certainly her cardiopulmonary arrest makes one think that that is potentially part of the issue. She continues under hypothermic protocol and we are continuing support. Exam (Progress Note) - Constitutional Vitals: Period Temp Pulse Resp BP Sys/Trejo Pulse Ox Last 24 Hr 91.0 F-94.1 F 49-79 12-16 97-218/48-91 64-100 Exam: General:no acute distress. Sedated on the ventilator HEENT: no new lesions, sclerae are clear, mouth and pharynx benign Neck: supple, trachea midline, no JVD noted Lungs: no rales ronchi or wheeze is noted. pt comfortable without accesory muscle use to assist with breathing CV: RRR no murmur rub or gallop is noted. Abd: soft and nontender, BSNA, no masses. Ext: no cyanosis, clubbing or edema Neuro: Patient is sedated on the ventilator unresponsive to deep pain Result/EKG - Labs CBC & BMP: 01/04/17 04:00 01/04/17 04:00 Labs: Laboratory Results - last 24 hr 01/03/17 01/03/17 01/03/17 09:43 09:43 09:43 WBC 13.3 H RBC 5.53 H Hgb 11.9 L Hct 40.1 MCV 72.5 L MCH 22 L MCHC 29.7 L RDW 23.7 H Plt Count 327 MPV 10.8 Neut % (Auto) 80.0 H Lymph % (Auto) 11.2 L Simpson % (Auto) 6.7 Eos % (Auto) 0.3 Baso % (Auto) 0.4 Neut # (Auto) 10.7 H Lymph # (Auto) 1.5 Simpson # (Auto) 0.9 H Eos # (Auto) 0.0 Baso # (Auto) 0.1 Immature Gran % 1.4 Nucleated RBC % 0.1 Immature Gran # 0.19 Nucleated RBCs # 0.02 Hypochromasia 2+ Microcytosis 2+ INR PT Patient/Control Mix Fibrinogen Circ Anticoag PTT ABG pH ABG pCO2 ABG pO2 ABG HCO3 ABG Total CO2 ABG O2 Saturation ABG Base Excess FiO2 Sodium 139 Potassium 5.1 Chloride 98 Carbon Dioxide 21 Anion Gap 25.1 H BUN 38 H Creatinine 8.50 H GFR Calculation 6 BUN/Creatinine Ratio 4.00 L Glucose 341 H POC Glucose Hemoglobin A1c Calculated Osmolality 298.5 Lactic Acid Calcium 8.1 L Phosphorus Magnesium 2.9 H Total Bilirubin 0.50 AST 132 H ALT 57 H Alkaline Phosphatase 271 H Troponin I 0.719 H B-Natriuretic Peptide 727 H Total Protein 7.4 Albumin 3.4 Globulin 4.0 H Albumin/Globulin Ratio 0.8 L Triglycerides 102 Cholesterol 174 LDL Cholesterol 101.0 VLDL Cholesterol 20.4 HDL Cholesterol 42 Heart Disease Risk Ratio 4.14 Amylase Lipase 01/03/17 01/03/17 01/03/17 09:43 09:43 09:43 WBC RBC Hgb Hct MCV MCH MCHC RDW Plt Count MPV Neut % (Auto) Lymph % (Auto) Simpson % (Auto) Eos % (Auto) Baso % (Auto) Neut # (Auto) Lymph # (Auto) Simpson # (Auto) Eos # (Auto) Baso # (Auto) Immature Gran % Nucleated RBC % Immature Gran # Nucleated RBCs # Hypochromasia Microcytosis INR 1.1 PT Patient/Control Mix 12.0 Fibrinogen Circ Anticoag PTT ABG pH ABG pCO2 ABG pO2 ABG HCO3 ABG Total CO2 ABG O2 Saturation ABG Base Excess FiO2 Sodium Potassium Chloride Carbon Dioxide Anion Gap BUN Creatinine GFR Calculation BUN/Creatinine Ratio Glucose POC Glucose Hemoglobin A1c 7.5 H Calculated Osmolality Lactic Acid 7.8 H Calcium Phosphorus Magnesium Total Bilirubin AST ALT Alkaline Phosphatase Troponin I B-Natriuretic Peptide Total Protein Albumin Globulin Albumin/Globulin Ratio Triglycerides Cholesterol LDL Cholesterol VLDL Cholesterol HDL Cholesterol Heart Disease Risk Ratio Amylase Lipase 01/03/17 01/03/17 01/03/17 09:43 09:43 09:44 WBC RBC Hgb Hct MCV MCH MCHC RDW Plt Count MPV Neut % (Auto) Lymph % (Auto) Simpson % (Auto) Eos % (Auto) Baso % (Auto) Neut # (Auto) Lymph # (Auto) Simpson # (Auto) Eos # (Auto) Baso # (Auto) Immature Gran % Nucleated RBC % Immature Gran # Nucleated RBCs # Hypochromasia Microcytosis INR PT Patient/Control Mix Fibrinogen 439 H Circ Anticoag PTT 31.4 ABG pH ABG pCO2 ABG pO2 ABG HCO3 ABG Total CO2 ABG O2 Saturation ABG Base Excess FiO2 Sodium Potassium Chloride Carbon Dioxide Anion Gap BUN Creatinine GFR Calculation BUN/Creatinine Ratio Glucose POC Glucose Hemoglobin A1c Calculated Osmolality Lactic Acid Calcium Phosphorus Magnesium Total Bilirubin AST ALT Alkaline Phosphatase Troponin I 0.841 H B-Natriuretic Peptide Total Protein Albumin Globulin Albumin/Globulin Ratio Triglycerides Cholesterol LDL Cholesterol VLDL Cholesterol HDL Cholesterol Heart Disease Risk Ratio Amylase 402 H Lipase 375.0 01/03/17 01/03/17 01/03/17 10:00 11:35 12:26 WBC RBC Hgb Hct MCV MCH MCHC RDW Plt Count MPV Neut % (Auto) Lymph % (Auto) Simpson % (Auto) Eos % (Auto) Baso % (Auto) Neut # (Auto) Lymph # (Auto) Simpson # (Auto) Eos # (Auto) Baso # (Auto) Immature Gran % Nucleated RBC % Immature Gran # Nucleated RBCs # Hypochromasia Microcytosis INR PT Patient/Control Mix Fibrinogen Circ Anticoag PTT ABG pH 7.336 L 7.268 L ABG pCO2 42.2 51.5 H ABG pO2 480.0 H 88.2 ABG HCO3 21.8 21.1 ABG Total CO2 20.3 L 21.4 L ABG O2 Saturation 99.6 93.9 L ABG Base Excess -3.1 L -3.9 L FiO2 100.00 50.00 Sodium Potassium Chloride Carbon Dioxide Anion Gap BUN Creatinine GFR Calculation BUN/Creatinine Ratio Glucose POC Glucose 420 H Hemoglobin A1c Calculated Osmolality Lactic Acid Calcium Phosphorus Magnesium Total Bilirubin AST ALT Alkaline Phosphatase Troponin I B-Natriuretic Peptide Total Protein Albumin Globulin Albumin/Globulin Ratio Triglycerides Cholesterol LDL Cholesterol VLDL Cholesterol HDL Cholesterol Heart Disease Risk Ratio Amylase Lipase 01/03/17 01/03/17 01/03/17 14:50 14:57 16:21 WBC RBC Hgb Hct MCV MCH MCHC RDW Plt Count MPV Neut % (Auto) Lymph % (Auto) Simpson % (Auto) Eos % (Auto) Baso % (Auto) Neut # (Auto) Lymph # (Auto) Simpson # (Auto) Eos # (Auto) Baso # (Auto) Immature Gran % Nucleated RBC % Immature Gran # Nucleated RBCs # Hypochromasia Microcytosis INR PT Patient/Control Mix Fibrinogen Circ Anticoag PTT ABG pH ABG pCO2 ABG pO2 ABG HCO3 ABG Total CO2 ABG O2 Saturation ABG Base Excess FiO2 Sodium Potassium Chloride Carbon Dioxide Anion Gap BUN Creatinine GFR Calculation BUN/Creatinine Ratio Glucose POC Glucose 426 H 447 H Hemoglobin A1c Calculated Osmolality Lactic Acid Calcium Phosphorus Magnesium Total Bilirubin AST ALT Alkaline Phosphatase Troponin I 5.580 H D B-Natriuretic Peptide Total Protein Albumin Globulin Albumin/Globulin Ratio Triglycerides Cholesterol LDL Cholesterol VLDL Cholesterol HDL Cholesterol Heart Disease Risk Ratio Amylase Lipase 01/03/17 01/03/17 01/03/17 17:02 17:02 17:33 WBC RBC Hgb Hct MCV MCH MCHC RDW Plt Count MPV Neut % (Auto) Lymph % (Auto) Simpson % (Auto) Eos % (Auto) Baso % (Auto) Neut # (Auto) Lymph # (Auto) Simpson # (Auto) Eos # (Auto) Baso # (Auto) Immature Gran % Nucleated RBC % Immature Gran # Nucleated RBCs # Hypochromasia Microcytosis INR 1.3 PT Patient/Control Mix 14.3 Fibrinogen Circ Anticoag PTT ABG pH ABG pCO2 ABG pO2 ABG HCO3 ABG Total CO2 ABG O2 Saturation ABG Base Excess FiO2 Sodium 139 Potassium 3.4 L Chloride 100 Carbon Dioxide 22 Anion Gap 20.4 H BUN 39 H Creatinine 7.60 H GFR Calculation 7 BUN/Creatinine Ratio 5.00 L Glucose 520 H* POC Glucose 448 H Hemoglobin A1c Calculated Osmolality 308.5 H Lactic Acid 4.3 H Calcium 6.9 L Phosphorus 6.5 H Magnesium 2.3 Total Bilirubin AST ALT Alkaline Phosphatase Troponin I B-Natriuretic Peptide Total Protein Albumin Globulin Albumin/Globulin Ratio Triglycerides Cholesterol LDL Cholesterol VLDL Cholesterol HDL Cholesterol Heart Disease Risk Ratio Amylase Lipase 01/03/17 01/03/17 01/03/17 18:47 20:05 20:56 WBC RBC Hgb Hct MCV MCH MCHC RDW Plt Count MPV Neut % (Auto) Lymph % (Auto) Simpson % (Auto) Eos % (Auto) Baso % (Auto) Neut # (Auto) Lymph # (Auto) Simpson # (Auto) Eos # (Auto) Baso # (Auto) Immature Gran % Nucleated RBC % Immature Gran # Nucleated RBCs # Hypochromasia Microcytosis INR PT Patient/Control Mix Fibrinogen Circ Anticoag PTT ABG pH ABG pCO2 ABG pO2 ABG HCO3 ABG Total CO2 ABG O2 Saturation ABG Base Excess FiO2 Sodium Potassium Chloride Carbon Dioxide Anion Gap BUN Creatinine GFR Calculation BUN/Creatinine Ratio Glucose POC Glucose 395 H 391 H 405 H Hemoglobin A1c Calculated Osmolality Lactic Acid Calcium Phosphorus Magnesium Total Bilirubin AST ALT Alkaline Phosphatase Troponin I B-Natriuretic Peptide Total Protein Albumin Globulin Albumin/Globulin Ratio Triglycerides Cholesterol LDL Cholesterol VLDL Cholesterol HDL Cholesterol Heart Disease Risk Ratio Amylase Lipase 01/03/17 01/03/17 01/03/17 20:59 21:55 21:57 WBC RBC Hgb Hct MCV MCH MCHC RDW Plt Count MPV Neut % (Auto) Lymph % (Auto) Simpson % (Auto) Eos % (Auto) Baso % (Auto) Neut # (Auto) Lymph # (Auto) Simpson # (Auto) Eos # (Auto) Baso # (Auto) Immature Gran % Nucleated RBC % Immature Gran # Nucleated RBCs # Hypochromasia Microcytosis INR PT Patient/Control Mix Fibrinogen Circ Anticoag PTT ABG pH ABG pCO2 ABG pO2 ABG HCO3 ABG Total CO2 ABG O2 Saturation ABG Base Excess FiO2 Sodium Potassium Chloride Carbon Dioxide Anion Gap BUN Creatinine GFR Calculation BUN/Creatinine Ratio Glucose POC Glucose 382 H 330 H Hemoglobin A1c Calculated Osmolality Lactic Acid Calcium Phosphorus Magnesium Total Bilirubin AST ALT Alkaline Phosphatase Troponin I 26.500 H D B-Natriuretic Peptide Total Protein Albumin Globulin Albumin/Globulin Ratio Triglycerides Cholesterol LDL Cholesterol VLDL Cholesterol HDL Cholesterol Heart Disease Risk Ratio Amylase Lipase 01/03/17 01/03/17 01/03/17 22:40 22:40 22:47 WBC RBC Hgb Hct MCV MCH MCHC RDW Plt Count MPV Neut % (Auto) Lymph % (Auto) Simpson % (Auto) Eos % (Auto) Baso % (Auto) Neut # (Auto) Lymph # (Auto) Simpson # (Auto) Eos # (Auto) Baso # (Auto) Immature Gran % Nucleated RBC % Immature Gran # Nucleated RBCs # Hypochromasia Microcytosis INR 1.3 PT Patient/Control Mix 13.8 Fibrinogen Circ Anticoag PTT ABG pH ABG pCO2 ABG pO2 ABG HCO3 ABG Total CO2 ABG O2 Saturation ABG Base Excess FiO2 Sodium 142 Potassium 3.6 Chloride 101 Carbon Dioxide 23 Anion Gap 21.6 H BUN 47 H Creatinine 8.70 H GFR Calculation 6 BUN/Creatinine Ratio 5.00 L Glucose 311 H POC Glucose 316 H Hemoglobin A1c Calculated Osmolality 306.1 H Lactic Acid 5.0 H Calcium 7.8 L Phosphorus 6.2 H Magnesium 2.6 H Total Bilirubin AST ALT Alkaline Phosphatase Troponin I B-Natriuretic Peptide Total Protein Albumin Globulin Albumin/Globulin Ratio Triglycerides Cholesterol LDL Cholesterol VLDL Cholesterol HDL Cholesterol Heart Disease Risk Ratio Amylase Lipase 01/03/17 01/04/17 01/04/17 23:47 01:00 01:52 WBC RBC Hgb Hct MCV MCH MCHC RDW Plt Count MPV Neut % (Auto) Lymph % (Auto) Simpson % (Auto) Eos % (Auto) Baso % (Auto) Neut # (Auto) Lymph # (Auto) Simpson # (Auto) Eos # (Auto) Baso # (Auto) Immature Gran % Nucleated RBC % Immature Gran # Nucleated RBCs # Hypochromasia Microcytosis INR PT Patient/Control Mix Fibrinogen Circ Anticoag PTT ABG pH ABG pCO2 ABG pO2 ABG HCO3 ABG Total CO2 ABG O2 Saturation ABG Base Excess FiO2 Sodium Potassium Chloride Carbon Dioxide Anion Gap BUN Creatinine GFR Calculation BUN/Creatinine Ratio Glucose POC Glucose 319 H 252 H 256 H Hemoglobin A1c Calculated Osmolality Lactic Acid Calcium Phosphorus Magnesium Total Bilirubin AST ALT Alkaline Phosphatase Troponin I B-Natriuretic Peptide Total Protein Albumin Globulin Albumin/Globulin Ratio Triglycerides Cholesterol LDL Cholesterol VLDL Cholesterol HDL Cholesterol Heart Disease Risk Ratio Amylase Lipase 01/04/17 01/04/17 01/04/17 02:49 03:01 04:00 WBC 12.4 H RBC 4.71 Hgb 10.0 L Hct 33.3 L MCV 70.7 L MCH 21 L MCHC 30.0 L RDW 23.2 H Plt Count 281 MPV 10.8 Neut % (Auto) 88.7 H Lymph % (Auto) 5.6 L Simpson % (Auto) 4.9 Eos % (Auto) 0.1 Baso % (Auto) 0.1 Neut # (Auto) 11.0 H Lymph # (Auto) 0.7 L Simpson # (Auto) 0.6 Eos # (Auto) 0.0 Baso # (Auto) 0.0 Immature Gran % 0.6 Nucleated RBC % 0.0 Immature Gran # 0.08 Nucleated RBCs # 0.00 Hypochromasia Microcytosis INR PT Patient/Control Mix Fibrinogen Circ Anticoag PTT ABG pH 7.371 ABG pCO2 42.1 ABG pO2 80.5 ABG HCO3 23.8 ABG Total CO2 25.1 ABG O2 Saturation 94.0 L ABG Base Excess -1.4 FiO2 50.00 Sodium Potassium Chloride Carbon Dioxide Anion Gap BUN Creatinine GFR Calculation BUN/Creatinine Ratio Glucose POC Glucose 200 H Hemoglobin A1c Calculated Osmolality Lactic Acid Calcium Phosphorus Magnesium Total Bilirubin AST ALT Alkaline Phosphatase Troponin I B-Natriuretic Peptide Total Protein Albumin Globulin Albumin/Globulin Ratio Triglycerides Cholesterol LDL Cholesterol VLDL Cholesterol HDL Cholesterol Heart Disease Risk Ratio Amylase Lipase 01/04/17 01/04/17 01/04/17 04:00 04:01 05:00 WBC RBC Hgb Hct MCV MCH MCHC RDW Plt Count MPV Neut % (Auto) Lymph % (Auto) Simpson % (Auto) Eos % (Auto) Baso % (Auto) Neut # (Auto) Lymph # (Auto) Simpson # (Auto) Eos # (Auto) Baso # (Auto) Immature Gran % Nucleated RBC % Immature Gran # Nucleated RBCs # Hypochromasia Microcytosis INR PT Patient/Control Mix Fibrinogen Circ Anticoag PTT ABG pH ABG pCO2 ABG pO2 ABG HCO3 ABG Total CO2 ABG O2 Saturation ABG Base Excess FiO2 Sodium 144 Potassium 3.2 L Chloride 103 Carbon Dioxide 26 Anion Gap 18.2 H BUN 49 H Creatinine 8.70 H GFR Calculation 6 BUN/Creatinine Ratio 5.00 L Glucose 141 H POC Glucose 163 H 112 H Hemoglobin A1c Calculated Osmolality 300.8 Lactic Acid 4.1 H Calcium 8.1 L Phosphorus 5.9 H Magnesium 2.6 H Total Bilirubin < 0.39 AST 276 H ALT 51 Alkaline Phosphatase 220 H Troponin I B-Natriuretic Peptide Total Protein 6.3 L Albumin 2.7 L Globulin 3.6 H Albumin/Globulin Ratio 0.7 L Triglycerides Cholesterol LDL Cholesterol VLDL Cholesterol HDL Cholesterol Heart Disease Risk Ratio Amylase Lipase 01/04/17 01/04/17 01/04/17 05:49 06:50 07:53 WBC RBC Hgb Hct MCV MCH MCHC RDW Plt Count MPV Neut % (Auto) Lymph % (Auto) Simpson % (Auto) Eos % (Auto) Baso % (Auto) Neut # (Auto) Lymph # (Auto) Simpson # (Auto) Eos # (Auto) Baso # (Auto) Immature Gran % Nucleated RBC % Immature Gran # Nucleated RBCs # Hypochromasia Microcytosis INR PT Patient/Control Mix Fibrinogen Circ Anticoag PTT ABG pH ABG pCO2 ABG pO2 ABG HCO3 ABG Total CO2 ABG O2 Saturation ABG Base Excess FiO2 Sodium Potassium Chloride Carbon Dioxide Anion Gap BUN Creatinine GFR Calculation BUN/Creatinine Ratio Glucose POC Glucose 94 62 L 59 L Hemoglobin A1c Calculated Osmolality Lactic Acid Calcium Phosphorus Magnesium Total Bilirubin AST ALT Alkaline Phosphatase Troponin I B-Natriuretic Peptide Total Protein Albumin Globulin Albumin/Globulin Ratio Triglycerides Cholesterol LDL Cholesterol VLDL Cholesterol HDL Cholesterol Heart Disease Risk Ratio Amylase Lipase 01/04/17 08:57 WBC RBC Hgb Hct MCV MCH MCHC RDW Plt Count MPV Neut % (Auto) Lymph % (Auto) Simpson % (Auto) Eos % (Auto) Baso % (Auto) Neut # (Auto) Lymph # (Auto) Simpson # (Auto) Eos # (Auto) Baso # (Auto) Immature Gran % Nucleated RBC % Immature Gran # Nucleated RBCs # Hypochromasia Microcytosis INR PT Patient/Control Mix Fibrinogen Circ Anticoag PTT ABG pH ABG pCO2 ABG pO2 ABG HCO3 ABG Total CO2 ABG O2 Saturation ABG Base Excess FiO2 Sodium Potassium Chloride Carbon Dioxide Anion Gap BUN Creatinine GFR Calculation BUN/Creatinine Ratio Glucose POC Glucose 94 Hemoglobin A1c Calculated Osmolality Lactic Acid Calcium Phosphorus Magnesium Total Bilirubin AST ALT Alkaline Phosphatase Troponin I B-Natriuretic Peptide Total Protein Albumin Globulin Albumin/Globulin Ratio Triglycerides Cholesterol LDL Cholesterol VLDL Cholesterol HDL Cholesterol Heart Disease Risk Ratio Amylase Lipase
[2017-01-04] MEDS: ENOXAPARIN 30 MG/0.3 ML SYRINGE SUBCUT SCH (09:25)
[2017-01-04] MEDS: ASPIRIN 325 MG TABLET PO SCH (09:30)
[2017-01-04] MEDS ORDERED: ATROPINE 1 MG/1 ML VIAL ONE (09:35)
[2017-01-04] MEDS: AMIODARONE INJ 450 MG in DEXTROSE 5% 241 ML IV SCH (09:41)
[2017-01-04] MEDS: DEXTROSE 50% 25 GM/50 ML VIAL IV PRN (10:58)
--- NOTE | 2017-01-04 11:23 | Nephrology Progress Note ---
Nephrology - PN: Subj Interval history: She remains on the ventilator. She was requiring pressors earlier today. She was dialyzed today. She had transient hypotension Exam (PN)-Nephrology - Vital Signs Vital signs: Period Temp Pulse Resp BP Sys/Trejo Pulse Ox Last 24 Hr 88.3 F-94.1 F 40-75 12-16 94-188/45-91 64-100 Exam: General: Sedated on ventilator Cardiovascular: Regular rate and rhythm. No murmur rub or gallop Lungs: Clear Extremities: No edema - Lab 01/04/17 04:00 01/04/17 04:00 Most recent lab results ABG pH 7.371 (7.35-7.45) 01/04/17 03:01 ABG pCO2 42.1 MM HG (35-48) 01/04/17 03:01 ABG pO2 80.5 MM HG (80-95) 01/04/17 03:01 ABG HCO3 23.8 MMOL/L (20-26) 01/04/17 03:01 ABG O2 Saturation 94.0 % (95-100) L 01/04/17 03:01 Calcium 8.1 MG/DL (8.5-10.1) L 01/04/17 04:00 Phosphorus 5.9 MG/DL (2.5-4.9) H 01/04/17 04:00 Magnesium 2.6 MG/DL (1.8-2.4) H 01/04/17 04:00 Assessment and Plan (1) End stage renal disease Status: Chronic Assessment and plan: 51-year-old woman with: * Cardiac arrest * CAD * Ventilatory failure * ESRD. Dialyzed today * Diabetes mellitus Current Visit: No (2) Acute respiratory failure Status: Acute Current Visit: Yes (3) Cardiac arrest Status: Acute Current Visit: Yes (4) Coronary artery disease Status: Chronic Current Visit: No (5) Diabetes mellitus Status: Chronic Current Visit: No
[2017-01-04 11:34] LABS: Lactic Acid 2.9 MMOL/L (0.4-2.0)
[2017-01-04 11:43] LABS: Calcium 8.8 MG/DL (8.5-10.1); Magnesium 2.3 MG/DL (1.8-2.4); Osmolality,Calculated 288.8 MOS/KG (273-304); Phosphorous 4.8 MG/DL (2.5-4.9); Potassium 3.1 MMOL/L (3.5-5.1)
[2017-01-04] MEDS ORDERED: ACETAMINOPHEN 325 MG/10.15 ML UDCUP PO PRN (12:25)
[2017-01-04] MEDS: NOREPINEPHRINE 8 MG in SODIUM CHLORIDE 0.9% 242 ML IV SCH (14:15)
[2017-01-04] MEDS: CISATRACURIUM 200 MG in SODIUM CHLORIDE 0.9% 100 ML IV SCH ×2 (16:25→20:01)
[2017-01-04] MEDS: MIDAZOLAM 100 MG in SODIUM CHLORIDE 0.9% 80 ML IV SCH (16:26)
[2017-01-04] MEDS: fentaNYL INJ 1,250 MCG in SODIUM CHLORIDE 0.9% 225 ML IV SCH ×2 (16:26→20:01)
[2017-01-04 17:18] LABS: Lactic Acid 1.9 MMOL/L (0.4-2.0)
[2017-01-04 17:22] LABS: Calcium 8.7 MG/DL (8.5-10.1); Magnesium 2.1 MG/DL (1.8-2.4); Osmolality,Calculated 288.3 MOS/KG (273-304); Phosphorous 5.7 MG/DL (2.5-4.9); Potassium 3.6 MMOL/L (3.5-5.1)
[2017-01-04] MEDS ORDERED: VANCOMYCIN INJ 750 MG in SODIUM CHLORIDE 0.9% 250 ML IV ONE (21:00)
[2017-01-04] MEDS: ROSUVASTATIN 20 MG TABLET PO SCH (21:08)
[2017-01-04] MEDS: MINERAL OIL/PETROLATUM OPH OINT 3.5 GM TUBE BOTH EYES SCH (21:08)
[2017-01-04 23:32] LABS: Lactic Acid 1.8 MMOL/L (0.4-2.0)
[2017-01-04 23:50] LABS: Calcium 8.7 MG/DL (8.5-10.1); Magnesium 2.1 MG/DL (1.8-2.4); Osmolality,Calculated 293.1 MOS/KG (273-304); Phosphorous 6.5 MG/DL (2.5-4.9); Potassium 3.8 MMOL/L (3.5-5.1)
[2017-01-05] MEDS: ALBUTEROL/IPRATROPIUM 3 ML NEB RESP TX SCH ×7 (00:05→23:57)
[2017-01-05] MEDS: AMIODARONE INJ 450 MG in DEXTROSE 5% 241 ML IV SCH ×2 (00:45→01:05)
[2017-01-05 03:09] LABS: Basophils % 0.1 % (0.0-0.8); Hematocrit 28.6 VOL% (35.7-47.0); Immature Granulocytes % 0.6 %; Immature Granulocytes Absolute 0.07 #; Lymphocytes # 0.9 10*3/uL (1.4-4.0); Lymphocytes % 6.8 % (21.3-54.2); Mean Corpuscular HGB Conc 31.5 GM/DL (32-36); Mean Corpuscular Hemoglobin 22 PG (27-34); Mean Corpuscular Volume 68.9 FL (87-102); Monocytes # 0.7 10*3/uL (0.11-0.8); Monocytes % 5.6 % (1.7-12.7); Neutrophils % 86.9 % (38.7-73.9); Platelet Count 241 T/CUMM (130-400); Red Blood Count 4.15 MC/CUMM (3.8-5.5); Red Cell Distribution Width 23.3 % (9.3-17.3); White Blood Count 12.7 T/CUMM (4-12)
[2017-01-05 03:19] LABS: INR 1.3; PT Patient Result 13.4 SECS
[2017-01-05 03:31] LABS: ABG Base Excess -0.4 MMOL/L (-2.5-2.5); ABG HCO3 24.1 MMOL/L (20-26); ABG Oxygen Saturation 99.4 % (95-100); ABG PCO2 31.2 MM HG (35-48); ABG PH 7.469 (7.35-7.45); ABG TCO2 20.8 MMOL/L (23-27); Allen Test Positive; Pt O2 Delivery Device Ventilator
[2017-01-05 03:38] LABS: Alanine Aminotransferase 45 U/L (13-56); Albumin 2.4 G/DL (3.4-5.0); Alkaline Phosphatase 185 U/L (45-117); Aspartate Amino Transferase 273 U/L (0-37); Bilirubin,Total < 0.39 MG/DL (0.2-1.0); Blood Urea Nitrogen 37 MG/DL (7-18); Calcium 8.3 MG/DL (8.5-10.1); Glucose 155 MG/DL (74-106); Osmolality,Calculated 294.1 MOS/KG (273-304); Sodium 142 MMOL/L (136-145); Total Protein 5.6 G/DL (6.4-8.3)
[2017-01-05 03:50] LABS: CKMB % 18.3 %
[2017-01-05 03:53] LABS: Troponin I Only 55.5 NG/ML (0.00-0.045)
[2017-01-05] MEDS: INSULIN REGULAR 100 UNIT/ML IV PRN ×4 (06:33→14:28)
--- NOTE | 2017-01-05 07:57 | Hospitalist Progress Note ---
Assessment and Plan - Time spent with patient Time spent with patient: Less than 30 minutes (1) Cardiac arrest Status: Acute Assessment and plan: 01/04/17: Patient sustained [id number] cardiac arrest. She has been followed by cardiology. She is on amiodarone infusion. She is also under the hypothermia protocol. Neurological responses inappropriate. Neurology is on bypass present. Continue current care. 01/05/17: Continued on amiodarone infusion. She is now warming phase of hypothermia protocol and off sedatives with no neurologic response. Prognosis is poor. Will discuss with the family. Neurology to see in a.m. Current Visit: Yes (2) End stage renal disease Status: Chronic Assessment and plan: Patient has end-stage renal disease and is currently receiving hemodialysis. Nephrology is assisting. Current Visit: No (3) Hypertension Status: Chronic Assessment and plan: Patient has history of chronic essential hypertension. Blood pressure currently stable. Current Visit: No (4) Diabetes mellitus Status: Chronic Assessment and plan: 01/04/17: Patient is currently on insulin infusion with good control of blood sugars. Likely can discontinue and place on Accu-Cheks with subcutaneous sliding scale. 01/05/17: Continue Accu-Cheks with sliding scale insulin. Blood sugars are fairly well-controlled at less than 200. Current Visit: No (5) Pneumonia Status: Acute Assessment and plan: Questionable pneumonia on admission. She is been cultured and placed on empiric IV antibiotics. Current Visit: Yes Qualifiers: Pneumonia type: due to unspecified organism (6) Acute respiratory failure Status: Acute Assessment and plan: Acute respiratory failure secondary to arrest. Continuing ventilatory support. Pulmonary is assisting with her care. Current Visit: Yes Hospitalist: Subjective Interval history: Patient continues on ventilatory support. Nurses report that she is now in the warming phase and sedation is off and she has no response. Exam - Constitutional Vitals: Period Temp Pulse Resp BP Sys/Trejo Pulse Ox Last 24 Hr 88.3 F-99.0 F 40-81 15-25 94-174/45-64 98-100 General appearance: no acute distress - Head Head exam: Present: normocephalic, atraumatic - Eye Pupils: Present: dilated, fixed - ENT ENT exam: Present: other (ET tube in place) - Neck Neck exam: Present: normal inspection - Respiratory Respiratory exam: Present: rales - Cardiovascular Cardiovascular exam: Present: regular rate and rhythm - GI/Abdominal GI/Abdominal exam: Present: soft. Absent: tenderness - Extremities Exam Extremities exam: Present: edema. Absent: calf tenderness - Neurological Exam Neurological exam: Present: other (Unresponsive to all stimuli) Results - Labs CBC & BMP: 01/05/17 02:45 01/05/17 02:45 Lab Results: I have reviewed the past 24 hour labs - Diagnostic Findings Procedure: Chest x-ray: image reviewed by me
--- NOTE | 2017-01-05 08:16 | XRay Report ---
XR chest 1V portable Indication: Intubation. Comparison: Chest x-ray 01/04/2017 Technique: Portable AP chest was performed. Findings: Interval partial clearing of airspace disease bilaterally has occurred suggesting improving pulmonary edema. Multiple tubes and medical support devices appear stable. The chest otherwise demonstrates little change. Impression: 1. Appearance of the chest suggests interval partial clearing of pulmonary edema. 01/05/2017 8:13 AM PROCEDURE INTERPRETED AT [facility] DEPARTMENT OF RADIOLOGY Final Report Signed by: Dr. Chris Alvarez
--- NOTE | 2017-01-05 08:17 | Cardiology Progress Note ---
Assessment and Plan (1) Cardiac arrest Status: Acute Assessment and plan: 01/04: Patient had a witnessed cardiac arrest outside the hospital. She is currently unresponsive on support. There is some question as to whether she had been taking her medications as prescribed. Certainly stent thrombosis has to be considered particularly if she was not taking her Plavix. 01/05: There is nothing new report. She is currently medically stable rhythm is good and we will discontinue her amiodarone. Current Visit: Yes (2) Coronary artery disease Status: Chronic Current Visit: No Cardiology - PN: Subj Interval history: Patient continues also sedation unresponsive currently rewarming from hypothermia. There are no new issues currently. She is on intravenous amiodarone I think we will just stop it. Likely what happened issues thrombosed or stent because of stopping her Plavix. Exam (Progress Note) - Constitutional Vitals: Period Temp Pulse Resp BP Sys/Trejo Pulse Ox Last 24 Hr 88.3 F-99.0 F 40-81 15-25 94-174/45-64 98-100 Exam: General:no acute distress. Sedated on the ventilator HEENT: no new lesions, sclerae are clear, mouth and pharynx benign Neck: supple, trachea midline, no JVD noted Lungs: no rales ronchi or wheeze is noted. pt comfortable without accesory muscle use to assist with breathing CV: RRR no murmur rub or gallop is noted. Abd: soft and nontender, BSNA, no masses. Ext: no cyanosis, clubbing or edema Neuro: Patient is sedated on the ventilator unresponsive to deep pain Result/EKG - Labs CBC & BMP: 01/05/17 02:45 01/05/17 02:45 Labs: Laboratory Results - last 24 hr 01/04/17 01/04/17 01/04/17 08:57 09:50 10:52 WBC RBC Hgb Hct MCV MCH MCHC RDW Plt Count Neut % (Auto) Lymph % (Auto) Brooke % (Auto) Eos % (Auto) Baso % (Auto) Neut # (Auto) Lymph # (Auto) Brooke # (Auto) Eos # (Auto) Baso # (Auto) Immature Gran % Nucleated RBC % Immature Gran # Nucleated RBCs # INR PT Patient/Control Mix Circ Anticoag PTT ABG pH ABG pCO2 ABG pO2 ABG HCO3 ABG Total CO2 ABG O2 Saturation ABG Base Excess FiO2 Sodium Potassium Chloride Carbon Dioxide Anion Gap BUN Creatinine GFR Calculation BUN/Creatinine Ratio Glucose POC Glucose 94 67 L 43 L* Calculated Osmolality Lactic Acid Calcium Phosphorus Magnesium Total Bilirubin AST ALT Alkaline Phosphatase Total Creatine Kinase CK-MB (CK-2) CK and CKMB Interp Troponin I Total Protein Albumin Globulin Albumin/Globulin Ratio 01/04/17 01/04/17 01/04/17 10:55 11:11 11:59 WBC RBC Hgb Hct MCV MCH MCHC RDW Plt Count Neut % (Auto) Lymph % (Auto) Brooke % (Auto) Eos % (Auto) Baso % (Auto) Neut # (Auto) Lymph # (Auto) Brooke # (Auto) Eos # (Auto) Baso # (Auto) Immature Gran % Nucleated RBC % Immature Gran # Nucleated RBCs # INR PT Patient/Control Mix Circ Anticoag PTT ABG pH ABG pCO2 ABG pO2 ABG HCO3 ABG Total CO2 ABG O2 Saturation ABG Base Excess FiO2 Sodium 144 Potassium 3.1 L Chloride 104 Carbon Dioxide 28 Anion Gap 15.1 H BUN 29 H D Creatinine 5.60 H GFR Calculation 11 BUN/Creatinine Ratio 5.00 L Glucose 39 L* POC Glucose 102 86 Calculated Osmolality 288.8 Lactic Acid 2.9 H Calcium 8.8 Phosphorus 4.8 Magnesium 2.3 Total Bilirubin AST ALT Alkaline Phosphatase Total Creatine Kinase CK-MB (CK-2) CK and CKMB Interp Troponin I Total Protein Albumin Globulin Albumin/Globulin Ratio 01/04/17 01/04/17 01/04/17 12:56 14:10 14:59 WBC RBC Hgb Hct MCV MCH MCHC RDW Plt Count Neut % (Auto) Lymph % (Auto) Brooke % (Auto) Eos % (Auto) Baso % (Auto) Neut # (Auto) Lymph # (Auto) Brooke # (Auto) Eos # (Auto) Baso # (Auto) Immature Gran % Nucleated RBC % Immature Gran # Nucleated RBCs # INR PT Patient/Control Mix Circ Anticoag PTT ABG pH ABG pCO2 ABG pO2 ABG HCO3 ABG Total CO2 ABG O2 Saturation ABG Base Excess FiO2 Sodium Potassium Chloride Carbon Dioxide Anion Gap BUN Creatinine GFR Calculation BUN/Creatinine Ratio Glucose POC Glucose 91 114 H 133 H Calculated Osmolality Lactic Acid Calcium Phosphorus Magnesium Total Bilirubin AST ALT Alkaline Phosphatase Total Creatine Kinase CK-MB (CK-2) CK and CKMB Interp Troponin I Total Protein Albumin Globulin Albumin/Globulin Ratio 01/04/17 01/04/17 01/04/17 16:11 16:50 17:43 WBC RBC Hgb Hct MCV MCH MCHC RDW Plt Count Neut % (Auto) Lymph % (Auto) Brooke % (Auto) Eos % (Auto) Baso % (Auto) Neut # (Auto) Lymph # (Auto) Brooke # (Auto) Eos # (Auto) Baso # (Auto) Immature Gran % Nucleated RBC % Immature Gran # Nucleated RBCs # INR PT Patient/Control Mix Circ Anticoag PTT ABG pH ABG pCO2 ABG pO2 ABG HCO3 ABG Total CO2 ABG O2 Saturation ABG Base Excess FiO2 Sodium 141 Potassium 3.6 Chloride 103 Carbon Dioxide 25 Anion Gap 16.6 H BUN 32 H Creatinine 6.30 H GFR Calculation 10 BUN/Creatinine Ratio 5.00 L Glucose 115 H POC Glucose 128 H 127 H Calculated Osmolality 288.3 Lactic Acid 1.9 Calcium 8.7 Phosphorus 5.7 H Magnesium 2.1 Total Bilirubin AST ALT Alkaline Phosphatase Total Creatine Kinase CK-MB (CK-2) CK and CKMB Interp Troponin I Total Protein Albumin Globulin Albumin/Globulin Ratio 01/04/17 01/04/17 01/04/17 20:07 21:54 23:00 WBC RBC Hgb Hct MCV MCH MCHC RDW Plt Count Neut % (Auto) Lymph % (Auto) Brooke % (Auto) Eos % (Auto) Baso % (Auto) Neut # (Auto) Lymph # (Auto) Brooke # (Auto) Eos # (Auto) Baso # (Auto) Immature Gran % Nucleated RBC % Immature Gran # Nucleated RBCs # INR PT Patient/Control Mix Circ Anticoag PTT ABG pH ABG pCO2 ABG pO2 ABG HCO3 ABG Total CO2 ABG O2 Saturation ABG Base Excess FiO2 Sodium 142 Potassium 3.8 Chloride 103 Carbon Dioxide 24 Anion Gap 18.8 H BUN 35 H Creatinine 6.60 H GFR Calculation 9 BUN/Creatinine Ratio 5.00 L Glucose 145 H POC Glucose 153 H 162 H Calculated Osmolality 293.1 Lactic Acid 1.8 Calcium 8.7 Phosphorus 6.5 H Magnesium 2.1 Total Bilirubin AST ALT Alkaline Phosphatase Total Creatine Kinase CK-MB (CK-2) CK and CKMB Interp Troponin I Total Protein Albumin Globulin Albumin/Globulin Ratio 01/04/17 01/05/17 01/05/17 23:50 01:57 02:45 WBC 12.7 H RBC 4.15 Hgb 9.0 L Hct 28.6 L MCV 68.9 L MCH 22 L MCHC 31.5 L RDW 23.3 H Plt Count 241 Neut % (Auto) 86.9 H Lymph % (Auto) 6.8 L Brooke % (Auto) 5.6 Eos % (Auto) 0.0 Baso % (Auto) 0.1 Neut # (Auto) 11.0 H Lymph # (Auto) 0.9 L Brooke # (Auto) 0.7 Eos # (Auto) 0.0 Baso # (Auto) 0.0 Immature Gran % 0.6 Nucleated RBC % 0.0 Immature Gran # 0.07 Nucleated RBCs # 0.00 INR PT Patient/Control Mix Circ Anticoag PTT ABG pH ABG pCO2 ABG pO2 ABG HCO3 ABG Total CO2 ABG O2 Saturation ABG Base Excess FiO2 Sodium Potassium Chloride Carbon Dioxide Anion Gap BUN Creatinine GFR Calculation BUN/Creatinine Ratio Glucose POC Glucose 174 H 171 H Calculated Osmolality Lactic Acid Calcium Phosphorus Magnesium Total Bilirubin AST ALT Alkaline Phosphatase Total Creatine Kinase CK-MB (CK-2) CK and CKMB Interp Troponin I Total Protein Albumin Globulin Albumin/Globulin Ratio 01/05/17 01/05/17 01/05/17 02:45 02:45 02:45 WBC RBC Hgb Hct MCV MCH MCHC RDW Plt Count Neut % (Auto) Lymph % (Auto) Brooke % (Auto) Eos % (Auto) Baso % (Auto) Neut # (Auto) Lymph # (Auto) Brooke # (Auto) Eos # (Auto) Baso # (Auto) Immature Gran % Nucleated RBC % Immature Gran # Nucleated RBCs # INR 1.3 PT Patient/Control Mix 13.4 Circ Anticoag PTT 42.0 H D ABG pH ABG pCO2 ABG pO2 ABG HCO3 ABG Total CO2 ABG O2 Saturation ABG Base Excess FiO2 Sodium 142 Potassium 4.0 Chloride 103 Carbon Dioxide 25 Anion Gap 18.0 H BUN 37 H Creatinine 6.80 H GFR Calculation 9 BUN/Creatinine Ratio 5.00 L Glucose 155 H POC Glucose Calculated Osmolality 294.1 Lactic Acid Calcium 8.3 L Phosphorus 7.0 H Magnesium 2.0 Total Bilirubin < 0.39 AST 273 H ALT 45 Alkaline Phosphatase 185 H Total Creatine Kinase CK-MB (CK-2) CK and CKMB Interp Troponin I Total Protein 5.6 L Albumin 2.4 L Globulin 3.2 Albumin/Globulin Ratio 0.7 L 01/05/17 01/05/17 01/05/17 02:45 03:15 05:46 WBC RBC Hgb Hct MCV MCH MCHC RDW Plt Count Neut % (Auto) Lymph % (Auto) Brooke % (Auto) Eos % (Auto) Baso % (Auto) Neut # (Auto) Lymph # (Auto) Brooke # (Auto) Eos # (Auto) Baso # (Auto) Immature Gran % Nucleated RBC % Immature Gran # Nucleated RBCs # INR PT Patient/Control Mix Circ Anticoag PTT ABG pH 7.469 H ABG pCO2 31.2 L ABG pO2 186.0 H ABG HCO3 24.1 ABG Total CO2 20.8 L ABG O2 Saturation 99.4 ABG Base Excess -0.4 FiO2 50.00 Sodium Potassium Chloride Carbon Dioxide Anion Gap BUN Creatinine GFR Calculation BUN/Creatinine Ratio Glucose POC Glucose 195 H Calculated Osmolality Lactic Acid Calcium Phosphorus Magnesium Total Bilirubin AST ALT Alkaline Phosphatase Total Creatine Kinase 995 H CK-MB (CK-2) 182.1 H CK and CKMB Interp 18.3 Troponin I 55.500 H D Total Protein Albumin Globulin Albumin/Globulin Ratio 01/05/17 06:20 WBC RBC Hgb Hct MCV MCH MCHC RDW Plt Count Neut % (Auto) Lymph % (Auto) Brooke % (Auto) Eos % (Auto) Baso % (Auto) Neut # (Auto) Lymph # (Auto) Brooke # (Auto) Eos # (Auto) Baso # (Auto) Immature Gran % Nucleated RBC % Immature Gran # Nucleated RBCs # INR PT Patient/Control Mix Circ Anticoag PTT ABG pH ABG pCO2 ABG pO2 ABG HCO3 ABG Total CO2 ABG O2 Saturation ABG Base Excess FiO2 Sodium Potassium Chloride Carbon Dioxide Anion Gap BUN Creatinine GFR Calculation BUN/Creatinine Ratio Glucose POC Glucose Calculated Osmolality Lactic Acid 2.5 H Calcium Phosphorus Magnesium Total Bilirubin AST ALT Alkaline Phosphatase Total Creatine Kinase CK-MB (CK-2) CK and CKMB Interp Troponin I Total Protein Albumin Globulin Albumin/Globulin Ratio
--- NOTE | 2017-01-05 08:19 | Pulmonology Progress Note ---
Pulmonary - PN: Subj Interval history: This 51-year-old lady had a cardiac arrest outside the hospital. She is a dialysis patient and is receiving dialysis this morning. Her blood pressures now in the 160-170 range. She is off pressors. She was on some IV saline which I have stopped this morning. ABGs look okay. She is on Arctic swollen for now so we will not try to wean her from the ventilator at this time. 01/05/2017 patient is rewarming now from the Arctic sun. Starting to move a little bit. We will use Precedex if we need to use anything for sedation on the ventilator. Her ABGs look much better. Reducing FiO2. She was dialyzed yesterday and the pulmonary edema is less but still some on the right side. Exam (Progress Note) - Constitutional Vitals: Period Temp Pulse Resp BP Sys/Trejo Pulse Ox Last 24 Hr 88.3 F-99.0 F 40-81 15-25 94-174/45-64 98-100 Exam: Beginning to warm up from the Arctic sun protocol. Temperature now 98.8 systolic blood pressure in the 170s. Face is symmetrical. Pupils midsize and sluggish. Orotracheal tube in place. Neck supple. Chest reveals some rales bilaterally. Heart rate is around 70 no murmurs. Abdomen no masses. Bowel sounds decreased. Extremities she does have 1+ peripheral edema. Results - Labs CBC & BMP: 01/05/17 02:45 01/05/17 02:45 Lab Results: I have reviewed the past 24 hour labs - Diagnostic Findings Procedure: Chest x-ray: image reviewed by me, pending (ET tube good position. Left pulmonary edema in right lung.) Assessment and Plan (1) Acute respiratory failure Status: Acute Assessment and plan: ABGs look okay. Will reduce ventilator settings. Manage the ventilator until we see what her mental status is white. Appears initially to be significant hypoxic brain injury. 01/04/2017 ABGs acceptable. Cannot wean at this point. She has significant hypoxic brain injury it appears. Need to finish the Arctic sun protocol before considering any weaning process. 01/05/2017 ABGs look good. Reduce FiO2 to 35%. Begin weaning trials. Will use Precedex if any sedation required. We need to see what her mental status is like. Current Visit: Yes (2) End stage renal disease Status: Chronic Assessment and plan: Renal is to see her and arrange dialysis as required. 01/04/2017 patient undergoing dialysis at present. Hopefully this will help with her pulmonary edema. 5.117 she was dialyzed yesterday. Chest x-ray has improved pulmonary edema cortes. Current Visit: No (3) Coronary artery disease Status: Chronic Assessment and plan: Known previous myocardial infarction with stents. Unclear if she had a myocardial infarction associated with this. Cardiology is seeing as well. 01/05/2017 status post cardiac arrest. Defer to cardiology. Troponins and CK- MB both markedly elevated. Apparently did have myocardial infarction. Current Visit: No (4) Diabetes mellitus Status: Chronic Assessment and plan: Blood sugar of 341. Sliding scale to be ordered by primary service. 01/04/2017 blood sugars look better. 01/05/2017 blood sugars look okay. Current Visit: No (5) Cardiac arrest Status: Acute Assessment and plan: Status post cardiac arrest apparently had ventricular tachycardia ventricular fibrillation. Initial evaluation would indicate hypoxic brain injury with dilated pupils. Plan is for Arctic sun and see if her mental status improved. 01/04/2017 post cardiac arrest outside hospital. Appears to have significant brain injury. Continue Arctic sun protocol did not reevaluate neurology cortes in a couple of days 01/05/2017 remains to be seen how much brain injury. Current Visit: Yes
[2017-01-05] MEDS: CARVEDILOL 25 MG TABLET PO SCH ×2 (09:30→21:31)
[2017-01-05] MEDS: ENOXAPARIN 30 MG/0.3 ML SYRINGE SUBCUT SCH (09:30)
[2017-01-05] MEDS: hydrALAZINE 25 MG TABLET PO SCH ×4 (09:30→21:31)
[2017-01-05] MEDS: ASPIRIN 325 MG TABLET PO SCH (09:30)
[2017-01-05] MEDS: PANTOPRAZOLE 40 MG VIAL IV SCH (09:30)
--- NOTE | 2017-01-05 11:47 | Nephrology Progress Note ---
Nephrology - PN: Subj Interval history: She remains on the ventilator. She is not responsive despite stopping sedation. Blood pressure stable Exam (PN)-Nephrology - Vital Signs Vital signs: Period Temp Pulse Resp BP Sys/Trejo Pulse Ox Last 24 Hr 90.3 F-99.0 F 49-81 15-25 144-176/47-63 66-100 Exam: Gen.: Nonresponsive, on ventilator Neck: Supple. No JVD or bruit. Cardiovascular: Regular rate and rhythm. No murmur rub or gallop Lungs: Clear Abdomen: Soft. Nontender. Positive bowel sounds. No organomegaly Extremities: No edema - Lab 01/05/17 02:45 01/05/17 02:45 Most recent lab results ABG pH 7.469 (7.35-7.45) H 01/05/17 03:15 ABG pCO2 31.2 MM HG (35-48) L 01/05/17 03:15 ABG pO2 186.0 MM HG (80-95) H 01/05/17 03:15 ABG HCO3 24.1 MMOL/L (20-26) 01/05/17 03:15 ABG O2 Saturation 99.4 % (95-100) 01/05/17 03:15 Calcium 8.3 MG/DL (8.5-10.1) L 01/05/17 02:45 Phosphorus 7.0 MG/DL (2.5-4.9) H 01/05/17 02:45 Magnesium 2.0 MG/DL (1.8-2.4) 01/05/17 02:45 Assessment and Plan (1) End stage renal disease Status: Chronic Assessment and plan: 51-year-old woman with: * Cardiac arrest. Probable anoxic brain injury * CAD * Ventilatory failure * ESRD. Dialyzed yesterday * Diabetes mellitus Current Visit: No (2) Acute respiratory failure Status: Acute Current Visit: Yes (3) Cardiac arrest Status: Acute Current Visit: Yes (4) Coronary artery disease Status: Chronic Current Visit: No (5) Diabetes mellitus Status: Chronic Current Visit: No
[2017-01-05 12:10] LABS: Calcium 8.6 MG/DL (8.5-10.1); Magnesium 2.1 MG/DL (1.8-2.4); Osmolality,Calculated 295.3 MOS/KG (273-304); Phosphorous 7.3 MG/DL (2.5-4.9)
[2017-01-05 12:13] LABS: Lactic Acid 2.4 MMOL/L (0.4-2.0)
[2017-01-05] MEDS: LEVOFLOXACIN INJ 500 MG in PREMIX 1 EACH IV SCH (13:10)
[2017-01-05] MEDS: DEXMEDETOMIDINE 200 MCG in SODIUM CHLORIDE 0.9% 48 ML IV SCH (15:00)
[2017-01-05] MEDS: NOREPINEPHRINE 8 MG in SODIUM CHLORIDE 0.9% 242 ML IV SCH (15:02)
[2017-01-05] MEDS: INSULIN REGULAR DRIP 100 ML IV SCH (15:05)
[2017-01-05] MEDS ORDERED: INSULIN REGULAR 100 UNIT/ML IV PRN (20:00)
[2017-01-05] MEDS: DEXTROSE 50% 25 GM/50 ML VIAL IV PRN ×2 (20:27→20:28)
[2017-01-05] MEDS: MINERAL OIL/PETROLATUM OPH OINT 3.5 GM TUBE BOTH EYES SCH (21:31)
[2017-01-05] MEDS: ROSUVASTATIN 20 MG TABLET PO SCH (21:31)
[2017-01-06] MEDS: ALBUTEROL/IPRATROPIUM 3 ML NEB RESP TX SCH ×5 (02:48→19:43)
[2017-01-06 03:09] LABS: ABG Base Excess 0.7 MMOL/L (-2.5-2.5); ABG Oxygen Saturation 99.9 % (95-100); ABG PCO2 38.1 MM HG (35-48); ABG PH 7.424 (7.35-7.45); ABG TCO2 23.1 MMOL/L (23-27); Allen Test Positive; Pt O2 Delivery Device Ventilator
[2017-01-06] MEDS: MIDAZOLAM 100 MG in SODIUM CHLORIDE 0.9% 80 ML IV SCH ×2 (03:31→19:10)
[2017-01-06] MEDS: DEXTROSE 50% 25 GM/50 ML VIAL IV PRN (03:52)
[2017-01-06 05:01] LABS: Basophils % 0.1 % (0.0-0.8); Eosinophils % 0.3 % (0.00-10.9); Hematocrit 27.2 VOL% (35.7-47.0); Hemoglobin 8.3 GM/DL (12.0-16.0); Immature Granulocytes % 1.4 %; Immature Granulocytes Absolute 0.14 #; Lymphocytes % 9.7 % (21.3-54.2); Mean Corpuscular HGB Conc 30.5 GM/DL (32-36); Mean Corpuscular Hemoglobin 22 PG (27-34); Mean Corpuscular Volume 70.5 FL (87-102); Mean Platelet Volume 10.8 FL (9.6-12.0); Monocytes % 9.7 % (1.7-12.7); Neutrophils # 7.8 10*3/uL (1.4-7.4); Neutrophils % 78.8 % (38.7-73.9); Platelet Count 239 T/CUMM (130-400); Red Blood Count 3.86 MC/CUMM (3.8-5.5); Red Cell Distribution Width 23.1 % (9.3-17.3); White Blood Count 9.9 T/CUMM (4-12)
[2017-01-06 05:50] LABS: Calcium 8.6 MG/DL (8.5-10.1); Magnesium 2.1 MG/DL (1.8-2.4); Osmolality,Calculated 290.4 MOS/KG (273-304); Phosphorous 7.8 MG/DL (2.5-4.9); Potassium 4.4 MMOL/L (3.5-5.1); Prealbumin 17.2 MG/DL (20-40)
[2017-01-06 06:22] LABS: Hypochromasia 2+; Macrocytosis 1+
[2017-01-06 06:23] LABS: Platelet Estimate Adequate; Polychromasia Slight
--- NOTE | 2017-01-06 06:43 | EKG Report ---
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
--- NOTE | 2017-01-06 07:43 | XRay Report ---
Referring Physician: Alma Rosa Jc Exam: XR chest 1V portable Date: January 06, 2017 at 3:18 AM Reason: Protocol, on ventilator Comparison: Chest one view portable January 05, 2017 Findings: A right IJ catheter is again present with its distal tip at the junction of the right axillary and subclavian arteries. An endotracheal tube and feeding tube are again in place as before. The cardiac silhouette is borderline prominent. The interstitial markings are prominent bilaterally, suggesting mild pulmonary edema. No pneumothorax is identified, but there may be minimal bilateral pleural fluid. The osseous structures appear stable. Impression: The opacities within both lungs have improved, suggesting improved pulmonary edema. Mild residual pulmonary edema is suspected. PROCEDURE INTERPRETED AT [facility] DEPARTMENT OF RADIOLOGY Final Report Signed by: Dr. Houston Chaparro
--- NOTE | 2017-01-06 08:33 | EKG Report ---
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
--- NOTE | 2017-01-06 08:53 | Nephrology Progress Note ---
Nephrology - PN: Subj Interval history: Patient remains unresponsive. She has been off sedation for greater than 24 hours that I can tell from the record. Physical exam general the patient is chronically ill-appearing, heart is regular rate and rhythm, she has no pitting edema, lungs are clear to auscultation anteriorly, abdomen is soft with decreased bowel sounds, neuro-- patient has no withdrawal to pain stimuli and her pupils appear to be nonreactive Assessment/plan 1. End-stage renal disease-patient was dialyzed Friday, will plan her next dialysis for tomorrow 2. Respiratory failure-patient's chest x-ray shows lessened pulmonary edema with some mild residual pulmonary edema 3. Diabetes mellitus this is controlled 4. Cardiac arrest 5. Probable anoxic brain injury. Spoke to the pt's brother, Mr. Dasilva, this morning and told him that it was not looking good for Ms. Hollingsworth presently due to her lack of response till this time, told him the longer she goes without improvement the more likely she had very significant brain injury and the less chance for recovery. I told him that the brain specialist was to see her today and advised him to get his input prior to making any decisions regarding withdrawal etc. Exam (PN)-Nephrology - Vital Signs Vital signs: Period Temp Pulse Resp BP Sys/Trejo Pulse Ox Last 24 Hr 97.5 F-99.0 F 66-79 12-25 126-171/40-65 66-100 - Lab 01/06/17 04:45 01/06/17 04:45 Most recent lab results ABG pH 7.424 (7.35-7.45) 01/06/17 02:50 ABG pCO2 38.1 MM HG (35-48) 01/06/17 02:50 ABG pO2 266.0 MM HG (80-95) H 01/06/17 02:50 ABG HCO3 25.0 MMOL/L (20-26) 01/06/17 02:50 ABG O2 Saturation 99.9 % (95-100) 01/06/17 02:50 Calcium 8.6 MG/DL (8.5-10.1) 01/06/17 04:45 Phosphorus 7.8 MG/DL (2.5-4.9) H 01/06/17 04:45 Magnesium 2.1 MG/DL (1.8-2.4) 01/06/17 04:45 Assessment and Plan (1) Pulmonary edema Status: Acute Assessment and plan: This patient has some increased interstitial markings possibly related to pneumonia versus, at this point with her cardiac arrest 2 and tenuous status I am going to hold on dialyzing her until tomorrow. Patient is oxygenating okay presently. Current Visit: Yes (2) Acute respiratory failure Status: Acute Assessment and plan: Continue vent support Current Visit: Yes (3) Cardiac arrest Status: Acute Current Visit: Yes (4) Secondary hyperparathyroidism Status: Chronic Current Visit: No (5) Anemia Status: Chronic Current Visit: No (6) Coronary artery disease Status: Chronic Current Visit: No (7) Diabetes mellitus Status: Chronic Current Visit: No (8) Dyslipidemia Status: Chronic Current Visit: No (9) End stage renal disease Status: Chronic Assessment and plan: We will plan on hemodialysis tomorrow Current Visit: No (10) Hypertension Status: Chronic Current Visit: No (11) S/P angioplasty with stent Status: Chronic Current Visit: No
--- NOTE | 2017-01-06 08:58 | Pulmonology Progress Note ---
Pulmonary - PN: Subj Interval history: This 51-year-old lady had a cardiac arrest outside the hospital. She is a dialysis patient and is receiving dialysis this morning. Her blood pressures now in the 160-170 range. She is off pressors. She was on some IV saline which I have stopped this morning. ABGs look okay. She is on Arctic sun for now so we will not try to wean her from the ventilator at this time. 01/05/2017 patient is rewarming now from the Arctic sun. Starting to move a little bit. We will use Precedex if we need to use anything for sedation on the ventilator. Her ABGs look much better. Reducing FiO2. She was dialyzed yesterday and the pulmonary edema is less but still some on the right side. 01/06/2017 patient is back to normal temperature. She is unresponsive. Her pupils were midpoint and not reactive. It appears that she has severe hypoxic brain injury. Neurology needs to see to evaluate. These things will have to be done after she has finished the 72 hour Arctic sun protocol. Exam (Progress Note) - Constitutional Vitals: Period Temp Pulse Resp BP Sys/Trejo Pulse Ox Last 24 Hr 97.5 F-99.0 F 66-79 12-25 126-171/40-65 66-100 Exam: Beginning to warm up from the Arctic sun protocol. Temperature now 98.8 systolic blood pressure in the 170s. Face is symmetrical. Pupils midsize and unresponsive. Orotracheal tube in place. Neck supple. Chest reveals some rales bilaterally. Heart rate is around 70 no murmurs. Abdomen no masses. Bowel sounds decreased. Extremities she does have 1+ peripheral edema. Results - Labs CBC & BMP: 01/06/17 04:45 01/06/17 04:45 Lab Results: I have reviewed the past 24 hour labs - Diagnostic Findings Procedure: Chest x-ray: image reviewed by me (Chest x-ray is less wet. ET tube in good position.) Assessment and Plan (1) Acute respiratory failure Status: Acute Assessment and plan: ABGs look okay. Will reduce ventilator settings. Manage the ventilator until we see what her mental status is white. Appears initially to be significant hypoxic brain injury. 01/04/2017 ABGs acceptable. Cannot wean at this point. She has significant hypoxic brain injury it appears. Need to finish the Arctic sun protocol before considering any weaning process. 01/05/2017 ABGs look good. Reduce FiO2 to 35%. Begin weaning trials. Will use Precedex if any sedation required. We need to see what her mental status is like. 01/06/2017 ABGs are fine on current settings. Cannot wean due to mental status at this point. Current Visit: Yes (2) End stage renal disease Status: Chronic Assessment and plan: Renal is to see her and arrange dialysis as required. 01/04/2017 patient undergoing dialysis at present. Hopefully this will help with her pulmonary edema. 01/05/17 she was dialyzed yesterday. Chest x-ray has improved pulmonary edema cortes. 01/06/2017 continuing with dialysis per schedule. Current Visit: No (3) Coronary artery disease Status: Chronic Assessment and plan: Known previous myocardial infarction with stents. Unclear if she had a myocardial infarction associated with this. Cardiology is seeing as well. 01/05/2017 status post cardiac arrest. Defer to cardiology. Troponins and CK- MB both markedly elevated. Apparently did have myocardial infarction. 01/06/2017 definite myocardial infarction. Current Visit: No (4) Diabetes mellitus Status: Chronic Assessment and plan: Blood sugar of 341. Sliding scale to be ordered by primary service. 01/04/2017 blood sugars look better. 01/05/2017 blood sugars look okay. 01/06/2017 glucoses well controlled Current Visit: No (5) Cardiac arrest Status: Acute Assessment and plan: Status post cardiac arrest apparently had ventricular tachycardia ventricular fibrillation. Initial evaluation would indicate hypoxic brain injury with dilated pupils. Plan is for [email or web address] sun and see if her mental status improved. 01/04/2017 post cardiac arrest outside hospital. Appears to have significant brain injury. Continue Arctic sun protocol did not reevaluate neurology cortes in a couple of days 01/05/2017 remains to be seen how much brain injury. 01/06/2017 apparent severe hypoxic brain injury. Neurology consult pending. Current Visit: Yes
--- NOTE | 2017-01-06 09:17 | Cardiology Progress Note ---
Assessment and Plan - Time spent with patient Time spent with patient: Greater than 30 minutes (1) Cardiac arrest Status: Acute Assessment and plan: See plan of care listed below Current Visit: Yes (2) Pneumonia Status: Acute Assessment and plan: See plan of care listed below Current Visit: Yes Qualifiers: Pneumonia type: due to unspecified organism (3) Pulmonary edema Status: Acute Assessment and plan: See plan of care listed below Current Visit: Yes (4) Secondary hyperparathyroidism Status: Chronic Assessment and plan: See plan of care listed below Current Visit: No (5) Anemia Status: Chronic Assessment and plan: See plan of care listed below Current Visit: No (6) Coronary artery disease Status: Chronic Assessment and plan: See plan of care listed below Current Visit: No (7) Diabetes mellitus Status: Chronic Assessment and plan: See plan of care listed below Current Visit: No (8) Dyslipidemia Status: Chronic Assessment and plan: See plan of care listed below Current Visit: No (9) End stage renal disease Status: Chronic Assessment and plan: See plan of care listed below Current Visit: No (10) Hypertension Status: Chronic Assessment and plan: See plan of care listed below Current Visit: No (11) S/P angioplasty with stent Status: Chronic Assessment and plan: See plan of care listed below Current Visit: No Cardiology - PN: Subj Interval history: MANAGER OF APPLICATION DEVELOPMENT: DR. JUSTICE SUMMARY: Ms. Hollingsworth, 51BF, routinely followed by Dr. Justice. History of Known coronary artery disease (status post PCI to the mid circumflex October 16, 2016 with MARY, EF 70%), hypertension, dyslipidemia, diabetes, obesity, sedentary lifestyle, PVD (known left internal carotid artery occlusion), ESRD requiring dialysis, hyperparathyroidism, anemia. Tuesday, January 03, 2017, patient was received in lateral transfer from [facility] for advanced level of care after witnessed cardiac arrest this morning. She was found to be in ventricular tachycardia. At one point she did require cardioversion. She was loaded with Amiodarone and has not experienced any additional arrhythmia. Hypothermia protocol initiated within appropriate timeframe. CT chest revealed no PE, bilateral lower extremity venous Dopplers negative. CT head revealed no active bleeding or stroke. Chest x-ray revealed pulmonary edema and possible pneumonia. Preliminary blood cultures negative. Patient does not make urine therefore urinalysis has not been obtained. Of note, patient was seen in cardiology clinic October 24, 2016. At that point, she had reported taking Brilinta only once daily because it made her feel poorly. She was given a prescription for Plavix 75 mg orally daily. After contacting her pharmacy, it is noted that she did take one prescription for Plavix 75 mg orally daily on October 29, 2016 but never returned for additional refills. JANUARY 06, 2017: Currently in the rewarming phase. At 98.6F at present. No additional arrythmias noted since admission. She is not responding to stimuli at this point. Off pressors. She received Plavix 75mg on Friday and is currently on ECASA 325mg daily. She has been oozing from IV access sites. Anemia is being monitored. It is likely she may have thrombosed stent after stopping Plavix causing acute stent thrombosis. Neurology has been consulted. Echocardiogram reveals EF 50%, PAP 93 mmHg. Will give Plavix again today and further discuss with Dr. Sweet. Await additional recommendations. ASSESSMENT/PLAN: 1. CARDIAC ARREST - Now on ventilator without appropriate neurological response at this time. Poor prognosis. Pupils fixed and dilated. Continue with hypothermia protocol. Troponin 55.5. 2. KNOWN CAD S/P PCI OCTOBER 16, 2016 - has had a dose of Plavix 75 mg orally daily restarting Plavix, ASA. Follow CIEs, EKG 3. SEPSIS - being treated accordingly. 4. PNEUMONIA - continue current plan of care 5. NON-COMPLIANCE - continue current plan of care 6. HYPERTENSION - Suboptimally controlled. Tolerating Coreg. Will increase Hydralazine and add Imdur. Avoiding FREDI. 7. DYSLIDEMIA - add lipid lowering agent when liver enzymes stable 8. CKD - Nephrology following. 9. SUSPECTED ANOXIC BRAIN INJURY - continue current plan of care. Exam (Progress Note) - Constitutional Vitals: Period Temp Pulse Resp BP Sys/Trejo Pulse Ox Last 24 Hr 97.5 F-99.0 F 66-78 12-25 126-171/40-65 66-100 Exam: Exam: General: [Intubated.] [Appears ill,] [hypothermia protocol in place ] HEENT: [Pupils equal but nonreactive to light or accommodation. Moderately dilated, fixed. Normocephalic. No jaundice noted. ] Neck: Difficult to assess for JVD due to habitus. No thyromegaly noted. Neck lymphadenopathy. No tracheal deviation. Cardiac: [Regular rate and rhythm.] [No obvious murmur rub or gallop.] Lungs: [Coarse sounds noted throughout. Symmetrical chest wall movements noted. Abdomen: Soft, bowel sounds normoactive. Nontender and nondistended. No abdominal bruit or thrill noted. No masses noted. Extremities: No clubbing, cyanosis noted. [ 1+ generalized edema noted.] Upper extremity pulses 2+. Lower extremity pulses 2+. Capillary refill less than 3 seconds. Skin: No unusual lesions or rashes. No skin breakdown appreciated. Neuro: Not responding to verbal or tactile stimuli. Pupils are fixed and dilated. No tremors noted at present. Result/EKG - Labs CBC & BMP: 01/06/17 04:45 01/06/17 04:45 Lab Results: I have reviewed the past 24 hour labs Labs: Laboratory Results - last 24 hr 01/05/17 01/05/17 01/05/17 09:44 12:56 14:19 WBC RBC Hgb Hct MCV MCH MCHC RDW Plt Count MPV Neut % (Auto) Lymph % (Auto) [place] % (Auto) Eos % (Auto) Baso % (Auto) Neut # (Auto) Lymph # (Auto) [place] # (Auto) Eos # (Auto) Baso # (Auto) Immature Gran % Nucleated RBC % Immature Gran # Nucleated RBCs # Platelet Estimate Polychromasia Hypochromasia Macrocytosis ABG pH ABG pCO2 ABG pO2 ABG HCO3 ABG Total CO2 ABG O2 Saturation ABG Base Excess FiO2 Sodium Potassium Chloride Carbon Dioxide Anion Gap BUN Creatinine GFR Calculation BUN/Creatinine Ratio Glucose POC Glucose 202 H 206 H 204 H Calculated Osmolality Lactic Acid Calcium Phosphorus Magnesium Prealbumin 01/05/17 01/05/17 01/05/17 16:28 18:03 20:15 WBC RBC Hgb Hct MCV MCH MCHC RDW Plt Count MPV Neut % (Auto) Lymph % (Auto) [place] % (Auto) Eos % (Auto) Baso % (Auto) Neut # (Auto) Lymph # (Auto) [place] # (Auto) Eos # (Auto) Baso # (Auto) Immature Gran % Nucleated RBC % Immature Gran # Nucleated RBCs # Platelet Estimate Polychromasia Hypochromasia Macrocytosis ABG pH ABG pCO2 ABG pO2 ABG HCO3 ABG Total CO2 ABG O2 Saturation ABG Base Excess FiO2 Sodium Potassium Chloride Carbon Dioxide Anion Gap BUN Creatinine GFR Calculation BUN/Creatinine Ratio Glucose POC Glucose 128 H 104 60 L Calculated Osmolality Lactic Acid Calcium Phosphorus Magnesium Prealbumin 01/05/17 01/05/17 01/06/17 23:25 Unknown 02:50 WBC RBC Hgb Hct MCV MCH MCHC RDW Plt Count MPV Neut % (Auto) Lymph % (Auto) [place] % (Auto) Eos % (Auto) Baso % (Auto) Neut # (Auto) Lymph # (Auto) [place] # (Auto) Eos # (Auto) Baso # (Auto) Immature Gran % Nucleated RBC % Immature Gran # Nucleated RBCs # Platelet Estimate Polychromasia Hypochromasia Macrocytosis ABG pH 7.424 ABG pCO2 38.1 ABG pO2 266.0 H ABG HCO3 25.0 ABG Total CO2 23.1 ABG O2 Saturation 99.9 ABG Base Excess 0.7 FiO2 35.00 Sodium 141 Potassium 4.0 Chloride 102 Carbon Dioxide 24 Anion Gap 19.0 H BUN 39 H Creatinine 7.60 H GFR Calculation 8 BUN/Creatinine Ratio 5.00 L Glucose 198 H POC Glucose 100 Calculated Osmolality 295.3 Lactic Acid 2.4 H Calcium 8.6 Phosphorus 7.3 H Magnesium 2.1 Prealbumin 01/06/17 01/06/17 01/06/17 03:14 04:45 04:45 WBC 9.9 RBC 3.86 Hgb 8.3 L Hct 27.2 L MCV 70.5 L MCH 22 L MCHC 30.5 L RDW 23.1 H Plt Count 239 MPV 10.8 Neut % (Auto) 78.8 H Lymph % (Auto) 9.7 L [place] % (Auto) 9.7 Eos % (Auto) 0.3 Baso % (Auto) 0.1 Neut # (Auto) 7.8 H Lymph # (Auto) 1.0 L [place] # (Auto) 1.0 H Eos # (Auto) 0.0 Baso # (Auto) 0.0 Immature Gran % 1.4 Nucleated RBC % 0.0 Immature Gran # 0.14 Nucleated RBCs # 0.00 Platelet Estimate Adequate Polychromasia Slight Hypochromasia 2+ Macrocytosis 1+ ABG pH ABG pCO2 ABG pO2 ABG HCO3 ABG Total CO2 ABG O2 Saturation ABG Base Excess FiO2 Sodium 140 Potassium 4.4 Chloride 102 Carbon Dioxide 27 Anion Gap 15.4 H BUN 47 H Creatinine 8.40 H GFR Calculation 7 BUN/Creatinine Ratio 5.00 L Glucose 91 POC Glucose 74 Calculated Osmolality 290.4 Lactic Acid Calcium 8.6 Phosphorus 7.8 H Magnesium 2.1 Prealbumin 17.2 L - Diagnostic Findings Procedure: Chest x-ray: report reviewed by me - EKG EKG results: interpreted by me EKG shows: sinus rhythm
[2017-01-06] MEDS: PANTOPRAZOLE 40 MG VIAL IV SCH ×2 (09:47→16:44)
[2017-01-06] MEDS: hydrALAZINE 25 MG TABLET PO SCH (09:48)
[2017-01-06] MEDS: ENOXAPARIN 30 MG/0.3 ML SYRINGE SUBCUT SCH (09:48)
[2017-01-06] MEDS: ASPIRIN 325 MG TABLET PO SCH (09:48)
[2017-01-06] MEDS: CARVEDILOL 25 MG TABLET PO SCH ×2 (09:48→20:21)
[2017-01-06] MEDS: INSULIN LISPRO 100 UNIT/ML SUBCUT SCH ×4 (10:32→22:06)
--- NOTE | 2017-01-06 11:02 | Physician Query Form ---
CLICK EDIT DOCUMENT TO SELECT QUERY ANSWER --> OK --> SIGN Erin Gonzales RN Clinical [employer]ctor W) [phone] (f) [phone] [email or web address] PROVIDERS: Make your selection(s) from the choices in EACH section by typing an "x" and enter comments in the comment section. Please use your independent medical judgment in providing your response. This request does not imply that any particular answer is desired or expected. CLINICAL INDICATORS: (Providers should not edit this section) Based on documentation on admission to hospital : "Not had any movement or withdrawal to pain. she is unresponsive" "Pupils equal but nonreactive to light or accommodation. Dilated, fixed." Initial neuro check by nurse states "Comatose. not arousable" "Pupils bilateral fixed. no sedation at this time" Based on the above, could you clarify the appropriate diagnosis, if significant , that supports the above abnormalities and additional evaluation, monitoring, and/or treatment rendered: (x ) Comatose to motor response, opening of the eyes, and verbal response on admission to hospital ( ) NOT comatose to motor response, opening of the eyes, and verbal response on admission to hospital ( ) Other reason for unresponsiveness (please specify) : ( ) Other, please specify: ( ) Clinically unable to determine COMMENTS: PLEASE ALSO DOCUMENT RESPONSE IN PROGRESS NOTES AND/OR DISCHARGE SUMMARY Use of terms such as suspected, likely, or probable (associated with a specific diagnosis that is being evaluated, monitored, or treated as if it exists) are acceptable and can be restated in the discharge summary if not ruled out. MTDD
[2017-01-06] MEDS: CLOPIDOGREL 75 MG TABLET PO SCH (11:16)
[2017-01-06] MEDS: ISOSORBIDE MONONITRATE 30 MG TABLET PO SCH (11:16)
--- NOTE | 2017-01-06 13:47 | Hospitalist Progress Note ---
Assessment and Plan (1) Cardiac arrest Status: Acute Assessment and plan: currently in rewarming phase, cardiology following, cont asa and plavix Current Visit: Yes (2) End stage renal disease Status: Chronic Assessment and plan: dialysis planned for tomorrow Current Visit: No (3) Diabetes mellitus Status: Chronic Assessment and plan: cont close monitoring of blood sugars Current Visit: No (4) Anemia Status: Chronic Assessment and plan: 2 units with dialysis tomorrow, stool for occult blood, coffee ground emesis coming out of NG, change protonix 40 mg IV every 12 hours, consult Dr Truong Current Visit: No (5) Acute respiratory failure Status: Acute Assessment and plan: due to pulmonary edema and rewarming process, Dr Lozoya managing the vent Current Visit: Yes (6) Pulmonary edema Status: Acute Assessment and plan: dialysis tomorrow Current Visit: Yes (7) Hypoxic brain injury Status: Acute Assessment and plan: due to cardiac arrest, await rewarming, Dr Balbuena Current Visit: Yes Hospitalist: Subjective Interval history: Patient is in the rewarming process which was started at [address] Balbuena will see her later, neurologic function cannot be assessed until 24 hours after the warming process is complete. Currently pupils fixed and dilated. She remains unresponsive to stimuli both verbal and painful. No arrhythmias noted. She was dialyzed on Friday. Exam - Constitutional Vitals: Period Temp Pulse Resp BP Sys/Trejo Pulse Ox Last 24 Hr 95.9 F-99.0 F 68-78 12-22 128-171/41-65 97-100 Exam: Heart Rate-[RRR] Lungs-[CTAB] GI-[+bs soft, NT] Ext-[no edema] Neuro unresponsive to commands and verbal stimuli, pupils fixed and dilated psych unable to access due to neuro status General [no acute distress] Results - Labs CBC & BMP: 01/06/17 04:45 01/06/17 04:45 Lab Results: I have reviewed the past 24 hour labs Labs: Stool negative for C. difficile, stool negative for pathogens. Blood cultures 1 negative, sputum culture Gram stain normal isiah - Diagnostic Findings Procedure: Chest x-ray: report reviewed by me (Pulmonary edema)
--- NOTE | 2017-01-06 14:13 | Neurology Consult Note ---
History of Present Illness History of present illness: Patient cannot provide me any history. History basically obtained from the chart. This is 51 year old -[place] lady that presented to the critical care unit at [facility] as a lateral transfer from [facility] for advanced level of care after witnessed cardiac arrest on . Her past medical history significant for end-stage renal disease, depression, coronary artery disease, hyperparathyroidism, anemia, hypertension, and dyslipidemia. Apparently, the patient had an acute onset of shortness of breath and collapsed. Upon EMS arrival, she was found to be apneic and pulseless. CPR was initiated and she was found be in pulsesless electrical activity. She was defibrillate, then transported to [facility]. At the time of arrival, she was intubated and found to be hypotensive and in ventricular fibrillation She was defibrillate. Upon arrival to [facility] she underwent CAT scan which revealed no acute abnormalities. She was started on Arctic sun protocol for anoxic brain injury she has been rewarmed in the last 24 hours. Neurologically she is unresponsive to even deep painful stimuli. Home Medications Medication Instructions Recorded Confirmed Type Carvedilol [Coreg] 25 mg PO BID 12/29/14 10/16/16 History Ferrous Sulfate 325 mg PO DAILY 12/29/14 10/16/16 History Insulin Glargine [Lantus] 37 unit SUBCUT BEDTIME 12/29/14 10/16/16 History NIFEdipine XL TAB [Procardia Xl] 90 mg PO DAILY 12/29/14 10/16/16 History Omeprazole 20 mg PO DAILY 12/29/14 10/16/16 History Rosuvastatin [Crestor] 20 mg PO DAILY 12/29/14 10/16/16 History Zolpidem Tartrate [Ambien] 10 mg PO BEDTIME 12/29/14 10/16/16 History traMADol TAB [Ultram] 50 mg PO Q6HR 12/29/14 10/16/16 History Cinacalcet HCl [Sensipar] 120 mg PO DAILY W/SUPPER 01/19/15 10/16/16 History Hydralazine HCl 100 mg PO TID 01/19/15 10/16/16 History Insulin Aspart [NovoLOG FlexPen] 0 unit SUBCUT DIRECTED PRN 01/19/15 History Aspirin EC Tab 81 mg PO DAILY tablet 01/20/15 10/16/16 Rx Calcium Carbonate/Vitamin D3 1 each PO DAILY 10/16/16 10/16/16 History [Calcium 600-Vit D3 400 Tablet] Citalopram Hydrobromide [Celexa] 10 mg PO DAILY 10/16/16 10/16/16 History Docusate Sodium Cap [Colace Cap] 100 mg PO DAILY 10/16/16 10/16/16 History Ibuprofen [Advil] 200 mg PO BID PRN 10/16/16 10/16/16 History Metoclopramide HCl 10 mg PO BID 10/16/16 10/16/16 History Sevelamer Carbonate Tab [Renvela 1,600 mg PO BID 10/16/16 10/16/16 History Tab] Sevelamer Carbonate Tab [Renvela 3,200 mg PO TID W/MEALS 10/16/16 10/16/16 History Tab] cefUROXime axetil [Cefuroxime] 250 mg PO BID 10/16/16 10/16/16 History Ticagrelor [Brilinta] 90 mg PO BID #60 tablet 10/17/16 Rx Allergies Allergy/AdvReac Type Severity Reaction Status Date / Time Penicillins Allergy Intermediate ITCHING Verified 10/16/16 10:38 ROS unobtainable: due to endotracheal tube, due to mental status Medical,Surgical,& Family Hx - Medical History Cardio: History of: CAD, Hypertension, [place] Neurology: No history of: Seizures HEENT: History of: Eye Problem (wears eyeglasses) Endocrine: History of: Diabetes Mellitus (IDDM), Dyslipidemia Renal: History of: Dialysis (Friday, Friday, and Friday), Renal Failure, Renal Problems Gastrointestinal: History of: GERD (history of C-scope) Hematology: History of: Bleeding Problems (blood transfusion history) No history of: Blood Transfusion Reaction - Surgical History Cardiac Surgeries: Sugical HX of: Cardiac Catheterization (stents 2009) Thoracic Surgeries: Patient denies;: Organ Transplant Neurologic Surgeries: Patient denies: Neurologic Surgery Abdominal Surgeries: Surgical HX of: Cholecystectomy Reproductive Surgeries: Surgical HX of;: Hysterectomy - Family History Family History: Reports;: Family Cancer, Family Diabetes, Family Hypertension - Social History Smoking Status: Never smoker Frequency of Alcohol Use: None Type of Drug Use: None Exam - Constitutional Vitals: Period Temp Pulse Resp BP Sys/Trejo Pulse Ox Last 24 Hr 95.9 F-99.0 F 70-78 12-22 133-171/41-65 98-100 Exam: GENERAL: Patient is in no acute distress. NECK: Neck is supple. There is no JVD. No carotid bruits present. No thyroid masses. CVS: First and second heart sounds are normal. There is no S3 present. Regular rate and rhythm. RESPIRATORY: Lungs are clear to auscultation without any rales or rhonchi. ABDOMEN: Soft and non-tender. Bowel sounds are present. There is no hepatosplenomegaly. EXT: There is no palpable edema. Peripheral pulses are present. Skin: No rashes Central Nervous system: General: Unresponsive Speech: None Comprehension: None Facial expressions: Normal Cranial Nerves: Pupils are 3 mm fixed and dilated mid position. Doll's head eye movements are negative. Corneals are absent. Motor: Bulk and Tone is normal. Strength: No spontaneous movement seen. Sensory: No movement seen on deep painful stimuli Reflexes: 1+ and symmetrical Cerebellar function: Cannot be assessed Toes: Equivocal Gait: Cannot be assessed Results - Labs CBC & BMP: 01/06/17 04:45 01/06/17 04:45 Assessment and Plan (1) Anoxic encephalopathy Status: Acute Assessment and plan: Anoxic brain injury secondary to cardiopulmonary arrest. Patient is not showing any cortical function on the neuro exam. We will go ahead and perform EEG Continue supportive care Prognosis is guarded. Current Visit: Yes
[2017-01-06] MEDS: INSULIN REGULAR DRIP 100 ML IV SCH (14:33)
[2017-01-06] MEDS ORDERED: CLOPIDOGREL 75 MG TABLET PO ONE (14:54)
[2017-01-06] MEDS ORDERED: VANCOMYCIN INJ 750 MG in SODIUM CHLORIDE 0.9% 250 ML IV ONE (15:00)
[2017-01-06] MEDS: fentaNYL INJ 1,250 MCG in SODIUM CHLORIDE 0.9% 225 ML IV SCH (19:08)
[2017-01-06] MEDS: DEXMEDETOMIDINE 200 MCG in SODIUM CHLORIDE 0.9% 48 ML IV SCH (19:09)
[2017-01-06] MEDS: CISATRACURIUM 200 MG in SODIUM CHLORIDE 0.9% 100 ML IV SCH (19:10)
--- NOTE | 2017-01-06 19:55 | Gastrointestinal Consult Note ---
Assessment and Plan (1) Coffee ground emesis Status: Acute Assessment and plan: This patient has a history of recent stressful cardiac arrest with resuscitation efforts in the face of prior aspirin and ibuprofen use. She had previous upper endoscopy done back in 2013 which did demonstrate some antritis as well as a stricture, in addition the patient has been under some Reglan and may also have some underlying gastroparesis present. Agree with maximal suppression of the patient's acidity using the Protonix twice daily. I will recheck this patient's hematocrit frequently and if we are dropping significantly we may have to transfuse however I doubt that repeat endoscopy in the short-term is going to be helpful especially in the face of this recent cardiac arrest. We need to continue her anticoagulation and so supportive care is paramount in this situation, and upper endoscopy is unlikely to change the prognosis significantly. If the patient begins to have bright red blood drops her hematocrit precipitously we may be forced to perform upper endoscopy emergently. We will try and avoid suction ulceration by keeping this patient NG tube clamped was being used for medications. We will continue to check her for high residuals to make sure that Reglan is not going to be required given her prior history of probable gastroparesis (she is a renal patient who was previously on Reglan as an outpatient). Current Visit: Yes (2) History of gastritis Status: Acute Assessment and plan: This was seen by Dr. Pizano back in 2013, the patient is taking Protonix twice daily and is off of her ibuprofen. She continues to get aspirin daily. We will continue to observe the patient's hematocrit and look for for further NG tube loss of blood, at least when checking residuals. Current Visit: Yes (3) History of esophageal stricture Status: Acute Assessment and plan: We do not have any history of the patient's recent ability to swallow prior to coming into the hospital. Will need to explore this further with family members in the room as they become available. There are none present at this time. We will follow with you in house. Current Visit: Yes History of Present Illness Chief complaint: Coffee ground emesis, post OR with anticoagulation for stent patency History of present illness: Ms. Hollingsworth is a 51 year old female who has a history of cardiopulmonary arrest noted prior to being seen at [facility] where she suffered a second arrest and sent here for definitive care. She apparently received Levaquin as well as cardioversion and amiodarone during her resuscitation. She will be experiencing some shortness of breath prior to the onset of the infarction. The patient had earlier coronary artery stenting in 2009 with a heart catheterization revealing stents to be open but with progression of her coronary artery disease which was subsequently managed medically. By report she had initially been given Brilinta which was switched over to Plavix due to side effects with the former medication. The Plavix was then allowed to lapse by the patient and unfortunately it is believed that she developed a subacute stent thrombosis leading to the ventricular tachycardia/ fibrillation. Here she was placed in an Arctic sun-induced hypothermia, and was continuing with her rewarming phase when she demonstrated coffee ground emesis this morning. Unfortunately she has received 300 mg of Plavix today ( one time), in addition to her aspirin. She has not yet regained meaningful neurologic improvement status post hypothermia but we are waiting a full 72 hours to allow the effects to completely subside. Of note, this patient had had previous upper endoscopy done by Dr. Howard Pizano on a prior admission on 10/19/13 at which time he had noted lower esophageal ring that required dilation to [address] [place], numerous gastric polyps were noted and there was slight hyperemia noted of the antrum pylorus. The colonoscopy was also performed on 07/01 which demonstrated diverticulosis, but no significant polyps, nor evidence of diverticulitis, there was tortuosity noted in the sigmoid incidentally. She does appear to have coffee grounds coming from the NG tube. Medications from outside the hospital include aspirin 81 mg per day and ibuprofen 200 mg p.o. twice daily in addition to metoclopramide some ferrous sulfate but the patient does take omeprazole 20 mg per day. Home Medications Medication Instructions Recorded Confirmed Type Carvedilol [Coreg] 25 mg PO BID 12/29/14 10/16/16 History Ferrous Sulfate 325 mg PO DAILY 12/29/14 10/16/16 History Insulin Glargine [Lantus] 37 unit SUBCUT BEDTIME 12/29/14 10/16/16 History NIFEdipine XL TAB [Procardia Xl] 90 mg PO DAILY 12/29/14 10/16/16 History Omeprazole 20 mg PO DAILY 12/29/14 10/16/16 History Rosuvastatin [Crestor] 20 mg PO DAILY 12/29/14 10/16/16 History Zolpidem Tartrate [Ambien] 10 mg PO BEDTIME 12/29/14 10/16/16 History traMADol TAB [Ultram] 50 mg PO Q6HR 12/29/14 10/16/16 History Cinacalcet HCl [Sensipar] 120 mg PO DAILY W/SUPPER 01/19/15 10/16/16 History Hydralazine HCl 100 mg PO TID 01/19/15 10/16/16 History Insulin Aspart [NovoLOG FlexPen] 0 unit SUBCUT DIRECTED PRN 01/19/15 History Aspirin EC Tab 81 mg PO DAILY tablet 01/20/15 10/16/16 Rx Calcium Carbonate/Vitamin D3 1 each PO DAILY 10/16/16 10/16/16 History [Calcium 600-Vit D3 400 Tablet] Citalopram Hydrobromide [Celexa] 10 mg PO DAILY 10/16/16 10/16/16 History Docusate Sodium Cap [Colace Cap] 100 mg PO DAILY 10/16/16 10/16/16 History Ibuprofen [Advil] 200 mg PO BID PRN 10/16/16 10/16/16 History Metoclopramide HCl 10 mg PO BID 10/16/16 10/16/16 History Sevelamer Carbonate Tab [Renvela 1,600 mg PO BID 10/16/16 10/16/16 History Tab] Sevelamer Carbonate Tab [Renvela 3,200 mg PO TID W/MEALS 10/16/16 10/16/16 History Tab] cefUROXime axetil [Cefuroxime] 250 mg PO BID 10/16/16 10/16/16 History Ticagrelor [Brilinta] 90 mg PO BID #60 tablet 10/17/16 Rx Allergies Allergy/AdvReac Type Severity Reaction Status Date / Time Penicillins Allergy Intermediate ITCHING Verified 10/16/16 10:38 Medical,Surgical,& Family Hx - Medical History Cardio: History of: CAD, Hypertension, OR Neurology: No history of: Seizures HEENT: History of: Eye Problem (wears eyeglasses) Endocrine: History of: Diabetes Mellitus (IDDM), Dyslipidemia Renal: History of: Dialysis (Friday, Friday, and Friday), Renal Failure, Renal Problems Gastrointestinal: History of: GERD (history of C-scope) Hematology: History of: Bleeding Problems (blood transfusion history) No history of: Blood Transfusion Reaction - Surgical History Cardiac Surgeries: Sugical HX of: Cardiac Catheterization (stents 2009) Thoracic Surgeries: Patient denies;: Organ Transplant Neurologic Surgeries: Patient denies: Neurologic Surgery Abdominal Surgeries: Surgical HX of: Cholecystectomy Reproductive Surgeries: Surgical HX of;: Hysterectomy - Family History Family History: Reports;: Family Cancer, Family Diabetes, Family Hypertension - Social History Smoking Status: Never smoker Frequency of Alcohol Use: None Type of Drug Use: None ROS unobtainable: due to encephalopathy, other Review of systems: Probable anoxic brain injury Exam - Constitutional Vitals: Period Temp Pulse Resp BP Sys/Trejo Pulse Ox Last 24 Hr 95.9 F-98.9 F 70-78 12-23 140-171/50-65 98-140 General appearance: over weight - Head Head exam: Present: other (Mild swelling noted throughout the face and periorbital regions) - Eye Eye exam: Present: other (Eyes fixed forward) Pupils: Present: fixed - ENT ENT exam: Present: other (ET tube in place with temperature probe coming out of the mouth. NG tube is in place with coffee grounds suctioned out of this) - Respiratory Respiratory exam: Present: clear to auscultation bilaterally, other (Patient is intubated). Absent: rhonchi, stridor, wheezes - Cardiovascular Cardiovascular exam: Present: regular rate and rhythm, systolic murmur - GI/Abdominal GI/Abdominal exam: Present: hypoactive bowel sounds, soft. Absent: distended, guarding, tenderness, rebound - Neurological Exam Neurological exam: Present: altered (Patient appears to be in a deep coma eyes fixed and mid-sized, no withdrawal to deep painful stimuli) - Psychiatric Psychiatric exam: Present: other (Cannot assess) - Skin Skin exam: Present: warm Results - Labs CBC & BMP: 01/06/17 04:45 01/06/17 04:45
[2017-01-06] MEDS: MINERAL OIL/PETROLATUM OPH OINT 3.5 GM TUBE BOTH EYES SCH (20:21)
[2017-01-06 20:28] LABS: Hematocrit 26.1 VOL% (35.7-47.0); Hemoglobin 7.8 GM/DL (12.0-16.0)
[2017-01-06] MEDS: cloNIDine 0.1 MG TABLET PO PRN (23:03)
[2017-01-07] MEDS: ALBUTEROL/IPRATROPIUM 3 ML NEB RESP TX SCH ×6 (00:10→20:53)
[2017-01-07] MEDS: cloNIDine 0.1 MG TABLET PO PRN ×2 (00:42→02:05)
[2017-01-07] MEDS: INSULIN LISPRO 100 UNIT/ML SUBCUT SCH ×6 (01:58→22:50)
[2017-01-07] MEDS: PANTOPRAZOLE 40 MG VIAL IV SCH ×2 (02:06→15:34)
[2017-01-07] MEDS ORDERED: hydrALAZINE 20 MG/1 ML VIAL IV PRN (03:12)
[2017-01-07 06:02] LABS: Basophils % 0.3 % (0.0-0.8); Eosinophils # 0.1 10*3/uL (0.0-0.87); Hematocrit 25.6 VOL% (35.7-47.0); Hemoglobin 7.7 GM/DL (12.0-16.0); Immature Granulocytes % 0.8 %; Immature Granulocytes Absolute 0.07 #; Lymphocytes % 10.5 % (21.3-54.2); Mean Corpuscular HGB Conc 30.1 GM/DL (32-36); Mean Corpuscular Hemoglobin 21 PG (27-34); Mean Corpuscular Volume 69.8 FL (87-102); Mean Platelet Volume 11.2 FL (9.6-12.0); Monocytes # 1.3 10*3/uL (0.11-0.8); Monocytes % 13.7 % (1.7-12.7); Neutrophils # 6.9 10*3/uL (1.4-7.4); Neutrophils % 73.7 % (38.7-73.9); Platelet Count 238 T/CUMM (130-400); Red Blood Count 3.67 MC/CUMM (3.8-5.5); Red Cell Distribution Width 22.8 % (9.3-17.3); White Blood Count 9.3 T/CUMM (4-12)
[2017-01-07 06:38] LABS: Elliptocytes Few; Hypochromasia 1+; Macrocytosis Slight; Platelet Estimate Adequate
[2017-01-07 06:39] LABS: Calcium 9.2 MG/DL (8.5-10.1); Magnesium 2.2 MG/DL (1.8-2.4)
--- NOTE | 2017-01-07 06:58 | Pulmonology Progress Note ---
Pulmonary - PN: Subj Interval history: This 51-year-old lady had a cardiac arrest outside the hospital. She is a dialysis patient and is receiving dialysis this morning. Her blood pressures now in the 160-170 range. She is off pressors. She was on some IV saline which I have stopped this morning. ABGs look okay. She is on Arctic sun for now so we will not try to wean her from the ventilator at this time. 01/05/2017 patient is rewarming now from the Arctic sun. Starting to move a little bit. We will use Precedex if we need to use anything for sedation on the ventilator. Her ABGs look much better. Reducing FiO2. She was dialyzed yesterday and the pulmonary edema is less but still some on the right side. 01/06/2017 patient is back to normal temperature. She is unresponsive. Her pupils were midpoint and not reactive. It appears that she has severe hypoxic brain injury. Neurology needs to see to evaluate. These things will have to be done after she has finished the 72 hour Arctic sun protocol. 01/07/2017 patient is totally unresponsive. Pupils not reactive. Does not respond to pain. Neurology evaluating for severity of brain injury. Exam (Progress Note) - Constitutional Vitals: Period Temp Pulse Resp BP Sys/Trejo Pulse Ox Last 24 Hr 95.9 F-98.9 F 75-88 12-23 140-185/51-73 98-140 Exam: Beginning to warm up from the [employer] sun protocol. Temperature now 98.6 systolic blood pressure in the 160s. Patient unresponsive even to painful stimulus. Face is symmetrical. Pupils midsize and unresponsive. Orotracheal tube in place. Neck supple. Chest reveals some rales bilaterally. Heart rate is around 70 no murmurs. Abdomen no masses. Bowel sounds decreased. Extremities she does have 1+ peripheral edema. Results - Labs CBC & BMP: 01/07/17 05:23 01/07/17 05:23 Lab Results: I have reviewed the past 24 hour labs - Diagnostic Findings Procedure: Chest x-ray: image reviewed by me (Minimal interstitial edema. ET tube good position. Little change from yesterday.) Assessment and Plan (1) Acute respiratory failure Status: Acute Assessment and plan: ABGs look okay. Will reduce ventilator settings. Manage the ventilator until we see what her mental status is white. Appears initially to be significant hypoxic brain injury. 01/04/2017 ABGs acceptable. Cannot wean at this point. She has significant hypoxic brain injury it appears. Need to finish the Arctic sun protocol before considering any weaning process. 01/05/2017 ABGs look good. Reduce FiO2 to 35%. Begin weaning trials. Will use Precedex if any sedation required. We need to see what her mental status is like. 01/06/2017 ABGs are fine on current settings. Cannot wean due to mental status at this point. 01/07/2017 continuing mechanical ventilatory support. Neurology getting EEG today. She has severe hypoxic brain injury. Need to see if this is to the point of brain . Current Visit: Yes (2) End stage renal disease Status: Chronic Assessment and plan: Renal is to see her and arrange dialysis as required. 01/04/2017 patient undergoing dialysis at present. Hopefully this will help with her pulmonary edema. 01/05/17 she was dialyzed yesterday. Chest x-ray has improved pulmonary edema cortes. 01/06/2017 continuing with dialysis per schedule. 01/07/2017 should be dialyzed today. Current Visit: No (3) Coronary artery disease Status: Chronic Assessment and plan: Known previous myocardial infarction with stents. Unclear if she had a myocardial infarction associated with this. Cardiology is seeing as well. 01/05/2017 status post cardiac arrest. Defer to cardiology. Troponins and CK- MB both markedly elevated. Apparently did have myocardial infarction. 01/06/2017 definite myocardial infarction. 01/07/2017 it appears that she had a myocardial infarction that led to her arrest. Current Visit: No (4) Diabetes mellitus Status: Chronic Assessment and plan: Blood sugar of 341. Sliding scale to be ordered by primary service. 01/04/2017 blood sugars look better. 01/05/2017 blood sugars look okay. 01/06/2017 glucoses well controlled 01/07/2017 no problems with glucoses. Current Visit: No (5) Cardiac arrest Status: Acute Assessment and plan: Status post cardiac arrest apparently had ventricular tachycardia ventricular fibrillation. Initial evaluation would indicate hypoxic brain injury with dilated pupils. Plan is for Money Dashboard sun and see if her mental status improved. 01/04/2017 post cardiac arrest outside hospital. Appears to have significant brain injury. Continue Arctic sun protocol did not reevaluate neurology cortes in a couple of days 01/05/2017 remains to be seen how much brain injury. 01/06/2017 apparent severe hypoxic brain injury. Neurology consult pending. 01/07/2017 again post cardiac arrest with severe hypoxic brain injury. Await completion of neurologic evaluation with EEG. Current Visit: Yes
--- NOTE | 2017-01-07 07:06 | Nephrology Progress Note ---
Nephrology - PN: Subj Interval history: Patient remains unresponsive however she is just undergoing the rewarming process from her cool body treatment for unresponsive cardiac arrest victims. Physical exam general patient is chronically ill-appearing, heart is regular rate and rhythm, she has no pitting edema, lungs are clear to auscultation anteriorly, abdomen is soft with decreased bowel sounds, neuro she is unresponsive to deep pain stimuli Assessment/plan 1. End-stage renal disease-we will plan on hemodialysis today 2. Anemia-patient's hematocrit seems to have stabilized around 27%, patient apparently did have some coffee-ground emesis noted yesterday 3. Diabetes mellitus this is controlled 4. Respiratory failure continue vent support 5. Cardiac arrest-it appears this patient has suffered significant anoxic brain injury, the patient was evaluated by neurology and an EEG has been ordered. Exam (PN)-Nephrology - Vital Signs Vital signs: Period Temp Pulse Resp BP Sys/Trejo Pulse Ox Last 24 Hr 95.9 F-98.9 F 75-88 12-23 140-185/55-73 98-140 - Lab 01/07/17 05:23 01/07/17 05:23 Most recent lab results ABG pH 7.424 (7.35-7.45) 01/06/17 02:50 ABG pCO2 38.1 MM HG (35-48) 01/06/17 02:50 ABG pO2 266.0 MM HG (80-95) H 01/06/17 02:50 ABG HCO3 25.0 MMOL/L (20-26) 01/06/17 02:50 ABG O2 Saturation 99.9 % (95-100) 01/06/17 02:50 Calcium 9.2 MG/DL (8.5-10.1) 01/07/17 05:23 Phosphorus 7.8 MG/DL (2.5-4.9) H 01/06/17 04:45 Magnesium 2.2 MG/DL (1.8-2.4) 01/07/17 05:23 Assessment and Plan (1) Pulmonary edema Status: Acute Assessment and plan: This patient has some increased interstitial markings possibly related to pneumonia versus, at this point with her cardiac arrest 2 and tenuous status I am going to hold on dialyzing her until tomorrow. Patient is oxygenating okay presently. Current Visit: Yes (2) Acute respiratory failure Status: Acute Assessment and plan: Continue vent support Current Visit: Yes (3) Cardiac arrest Status: Acute Current Visit: Yes (4) Secondary hyperparathyroidism Status: Chronic Current Visit: No (5) Anemia Status: Chronic Current Visit: No (6) Coronary artery disease Status: Chronic Current Visit: No (7) Diabetes mellitus Status: Chronic Current Visit: No (8) Dyslipidemia Status: Chronic Current Visit: No (9) End stage renal disease Status: Chronic Assessment and plan: We will plan on hemodialysis tomorrow Current Visit: No (10) Hypertension Status: Chronic Current Visit: No (11) S/P angioplasty with stent Status: Chronic Current Visit: No
--- NOTE | 2017-01-07 07:24 | Event Note ---
I was consulted to place a central line on this patient over the weekend. This is a renal failure dialysis patient and the wire did not thread easily into the right internal jugular vein ended up with the catheter going into the right subclavian vein. This is a patient who had a cardiac arrest and is neurologically devastated with no neurologic response and EEG is underway to see if there is any brain activity. Obviously it does not make sense to be real aggressive with this patient if she is not going to have a functional recovery or if the family decides to make her comfort care but if it is thought that the catheter is still needed for access then I would recommend interventional radiology consultation to attempt to reposition the catheter tip in a proper position. This was discussed with the patient's nurse this morning.
[2017-01-07 07:25] LABS: Allen Test Positive; Pt O2 Delivery Device Ventilator
--- NOTE | 2017-01-07 07:25 | XRay Report ---
Referring Physician: Alma Rosa Jc Exam: XR chest 1V portable Date: January 07, 2017 at 3:02 AM Reason: Protocol, ventilation Comparison: Chest one view portable January 06, 2017 Findings: There is again a catheter at the right upper chest. One end of the catheter projects in the region of the right axillary/subclavian vein junction, and the other end extends to the right neck and beyond the [id number]. An endotracheal tube and feeding tube are again in place. The cardiac silhouette is again borderline prominent. The interstitial markings are prominent bilaterally, and there are mild scattered opacities within both lower lung zones. This likely represents pulmonary edema and atelectasis. Pneumonia is felt less likely but is not excluded. No pneumothorax is identified, but there is mild left pleural fluid. The osseous structures appear stable. Impression: 1. There is slight increased pulmonary edema and atelectasis and mild left pleural fluid. 2. A catheter is again seen at the right upper chest/right neck as described above. PROCEDURE INTERPRETED AT [facility] DEPARTMENT OF RADIOLOGY Final Report Signed by: Dr. Houston Chaparro
[2017-01-07 07:26] LABS: ABG HCO3 22.8 MMOL/L (20-26); ABG Oxygen Saturation 98.6 % (95-100); ABG PCO2 39.1 MM HG (35-48); ABG PH 7.384 (7.35-7.45); ABG PO2 149.6 MM HG (80-95)
--- NOTE | 2017-01-07 08:01 | EKG Report ---
Stationary ECG Study [facility] Test Date: 01/07/2017 8:00:30 AM Pat Name: GERMAINE GALARZA Department: Room: 125 Gender: F Weighter: KANCHAN : 1965 Requested by: Alma Rosa Jc Order Number: [id number] Reading MD: JAZMYNE OQUENDO Intervals [place] Rate: 83 P: 67 NE: 166 QRS: 53 QRSD: 100 T: 76 QT: 403 QTc: 443 Interpretive Statements SINUS RHYTHM Electronically Signed On 01-07-17 14:54:46 CDT by JAZMYNE OQUENDO [email or web address]
--- NOTE | 2017-01-07 08:28 | Cardiology Progress Note ---
Assessment and Plan - Time spent with patient Time spent with patient: Greater than 30 minutes (1) Cardiac arrest Status: Acute Assessment and plan: See plan of care listed below Current Visit: Yes (2) Pneumonia Status: Acute Assessment and plan: See plan of care listed below Current Visit: Yes Qualifiers: Pneumonia type: due to unspecified organism (3) Pulmonary edema Status: Acute Assessment and plan: See plan of care listed below Current Visit: Yes (4) Secondary hyperparathyroidism Status: Chronic Assessment and plan: See plan of care listed below Current Visit: No (5) Anemia Status: Chronic Assessment and plan: See plan of care listed below Current Visit: No (6) Coronary artery disease Status: Chronic Assessment and plan: See plan of care listed below Current Visit: No (7) Diabetes mellitus Status: Chronic Assessment and plan: See plan of care listed below Current Visit: No (8) Dyslipidemia Status: Chronic Assessment and plan: See plan of care listed below Current Visit: No (9) End stage renal disease Status: Chronic Assessment and plan: See plan of care listed below Current Visit: No (10) Hypertension Status: Chronic Assessment and plan: See plan of care listed below Current Visit: No (11) S/P angioplasty with stent Status: Chronic Assessment and plan: See plan of care listed below Current Visit: No Cardiology - PN: Subj Interval history: FUR COAT SEWER: DR. JUSTICE SUMMARY: Ms. Hollingsworth, 51BF, routinely followed by Dr. Justice. History of Known coronary artery disease (status post PCI to the mid circumflex October 16, 2016 with MARY, EF 70%), hypertension, dyslipidemia, diabetes, obesity, sedentary lifestyle, PVD (known left internal carotid artery occlusion), ESRD requiring dialysis, hyperparathyroidism, anemia. Tuesday, January 03, 2017, patient was received in lateral transfer from [facility] for advanced level of care after witnessed cardiac arrest this morning. She was found to be in ventricular tachycardia. At one point she did require cardioversion. She was loaded with Amiodarone and has not experienced any additional arrhythmia. Hypothermia protocol initiated within appropriate timeframe. CT chest revealed no PE, bilateral lower extremity venous Dopplers negative. CT head revealed no active bleeding or stroke. Chest x-ray revealed pulmonary edema and possible pneumonia. Preliminary blood cultures negative. Patient does not make urine therefore urinalysis has not been obtained. Of note, patient was seen in cardiology clinic October 24, 2016. At that point, she had reported taking Brilinta only once daily because it made her feel poorly. She was given a prescription for Plavix 75 mg orally daily. After contacting her pharmacy, it is noted that she did take one prescription for Plavix 75 mg orally daily on October 29, 2016 but never returned for additional refills. JANUARY 06, 2017: Currently in the rewarming phase. At 98.6F at present. No additional arrythmias noted since admission. She is not responding to stimuli at this point. Off pressors. She received Plavix 75mg on Friday and is currently on ECASA 325mg daily. She has been oozing from IV access sites. Anemia is being monitored. It is likely she may have thrombosed stent after stopping Plavix causing acute stent thrombosis. Neurology has been consulted. Echocardiogram reveals EF 50%, PAP 93 mmHg. Will give Plavix again today and further discuss with Dr. Sweet. Await additional recommendations. JANUARY 07, 2017: Overnight, patient's condition remains unchanged. She has reached appropriate warming temperature per protocol around 0400 this morning. We await the next 24 hours and hope to see some improvement neurologically. Patient's blood pressure remains elevated and today I will increase her hydralazine 3 times daily. Continue aspirin and Plavix. Unless there is obvious bleeding, these will not be stopped. Continue to follow labs closely. We are holding lipid-lowering agent at this time as she did have elevated LFTs. LFTs in am. We will reincorporate when able. ASSESSMENT/PLAN: 1. CARDIAC ARREST - Now on ventilator without appropriate neurological response at this time. Poor prognosis. Pupils fixed and dilated. Continue with rewarming protocol. 2. KNOWN CAD S/P PCI OCTOBER 16, 2016 - continue ASA, Plavix. 3. SEPSIS - being treated accordingly. 4. PNEUMONIA - continue current plan of care 5. NON-COMPLIANCE - continue current plan of care 6. HYPERTENSION - suboptimally controlled. Tolerating Coreg. Will increase Hydralazine today. Avoiding FREDI. 7. DYSLIDEMIA - add lipid lowering agent when liver enzymes stable. LFTs in am. 8. CKD - Nephrology following. 9. SUSPECTED ANOXIC BRAIN INJURY - continue current plan of care. Exam (Progress Note) - Constitutional Vitals: Period Temp Pulse Resp BP Sys/Trejo Pulse Ox Last 24 Hr 95.9 F-98.9 F 75-88 12-23 140-185/55-73 99-140 Exam: Exam: General: [Intubated.] [Appears ill,] [hypothermia protocol in place ] HEENT: [Pupils equal but nonreactive to light or accommodation. Moderately dilated, fixed. Normocephalic. No jaundice noted. ] Neck: Difficult to assess for JVD due to habitus. No thyromegaly noted. Neck lymphadenopathy. No tracheal deviation. Cardiac: [Regular rate and rhythm.] [No obvious murmur rub or gallop.] Lungs: [Coarse sounds noted throughout. Symmetrical chest wall movements noted. Abdomen: Soft, bowel sounds normoactive. Nontender and nondistended. No abdominal bruit or thrill noted. No masses noted. Extremities: No clubbing, cyanosis noted. [ 1+ generalized edema noted.] Upper extremity pulses 2+. Lower extremity pulses 2+. Capillary refill less than 3 seconds. Skin: No unusual lesions or rashes. No skin breakdown appreciated. Neuro: Not responding to verbal or tactile stimuli. Pupils are fixed and dilated. No tremors noted at present. Result/EKG - Labs CBC & BMP: 01/07/17 08:40 01/07/17 05:23 Lab Results: I have reviewed the past 24 hour labs Labs: Laboratory Results - last 24 hr 01/06/17 01/06/17 01/06/17 04:45 10:31 11:39 WBC RBC Hgb Hct MCV MCH MCHC RDW Plt Count MPV Neut % (Auto) Lymph % (Auto) [place] % (Auto) Eos % (Auto) Baso % (Auto) Neut # (Auto) Lymph # (Auto) [place] # (Auto) Eos # (Auto) Baso # (Auto) Immature Gran % Nucleated RBC % Immature Gran # Nucleated RBCs # Platelet Estimate Hypochromasia Macrocytosis Elliptocytes Morphology Comment ABG pH ABG pCO2 ABG pO2 ABG HCO3 ABG Total CO2 ABG O2 Saturation ABG Base Excess FiO2 Sodium Potassium Chloride Carbon Dioxide Anion Gap BUN Creatinine GFR Calculation BUN/Creatinine Ratio Glucose POC Glucose 99 87 Calculated Osmolality Calcium Magnesium Blood Type O POSITIVE Antibody Screen Negative Crossmatch See Detail 01/06/17 01/06/17 01/06/17 14:58 16:55 20:07 WBC RBC Hgb Hct MCV MCH MCHC RDW Plt Count MPV Neut % (Auto) Lymph % (Auto) [place] % (Auto) Eos % (Auto) Baso % (Auto) Neut # (Auto) Lymph # (Auto) [place] # (Auto) Eos # (Auto) Baso # (Auto) Immature Gran % Nucleated RBC % Immature Gran # Nucleated RBCs # Platelet Estimate Hypochromasia Macrocytosis Elliptocytes Morphology Comment ABG pH ABG pCO2 ABG pO2 ABG HCO3 ABG Total CO2 ABG O2 Saturation ABG Base Excess FiO2 Sodium Potassium Chloride Carbon Dioxide Anion Gap BUN Creatinine GFR Calculation BUN/Creatinine Ratio Glucose POC Glucose 91 85 Calculated Osmolality Calcium Magnesium Blood Type O POSITIVE Antibody Screen Crossmatch 01/06/17 01/06/17 01/07/17 20:23 21:49 00:03 WBC RBC Hgb 7.8 L Hct 26.1 L MCV MCH MCHC RDW Plt Count MPV Neut % (Auto) Lymph % (Auto) [place] % (Auto) Eos % (Auto) Baso % (Auto) Neut # (Auto) Lymph # (Auto) [place] # (Auto) Eos # (Auto) Baso # (Auto) Immature Gran % Nucleated RBC % Immature Gran # Nucleated RBCs # Platelet Estimate Hypochromasia Macrocytosis Elliptocytes Morphology Comment ABG pH ABG pCO2 ABG pO2 ABG HCO3 ABG Total CO2 ABG O2 Saturation ABG Base Excess FiO2 Sodium Potassium Chloride Carbon Dioxide Anion Gap BUN Creatinine GFR Calculation BUN/Creatinine Ratio Glucose POC Glucose 95 118 H Calculated Osmolality Calcium Magnesium Blood Type Antibody Screen Crossmatch 01/07/17 01/07/17 01/07/17 01:55 03:58 05:23 WBC 9.3 RBC 3.67 L Hgb 7.7 L Hct 25.6 L MCV 69.8 L MCH 21 L MCHC 30.1 L RDW 22.8 H Plt Count 238 MPV 11.2 Neut % (Auto) 73.7 Lymph % (Auto) 10.5 L [place] % (Auto) 13.7 H Eos % (Auto) 1.0 Baso % (Auto) 0.3 Neut # (Auto) 6.9 Lymph # (Auto) 1.0 L [place] # (Auto) 1.3 H Eos # (Auto) 0.1 Baso # (Auto) 0.0 Immature Gran % 0.8 Nucleated RBC % 0.0 Immature Gran # 0.07 Nucleated RBCs # 0.00 Platelet Estimate Adequate Hypochromasia 1+ Macrocytosis Slight Elliptocytes Few Morphology Comment ABG pH ABG pCO2 ABG pO2 ABG HCO3 ABG Total CO2 ABG O2 Saturation ABG Base Excess FiO2 Sodium Potassium Chloride Carbon Dioxide Anion Gap BUN Creatinine GFR Calculation BUN/Creatinine Ratio Glucose POC Glucose 113 H 100 Calculated Osmolality Calcium Magnesium Blood Type Antibody Screen Crossmatch 01/07/17 01/07/17 01/07/17 05:23 06:00 07:10 WBC RBC Hgb Hct MCV MCH MCHC RDW Plt Count MPV Neut % (Auto) Lymph % (Auto) [place] % (Auto) Eos % (Auto) Baso % (Auto) Neut # (Auto) Lymph # (Auto) [place] # (Auto) Eos # (Auto) Baso # (Auto) Immature Gran % Nucleated RBC % Immature Gran # Nucleated RBCs # Platelet Estimate Hypochromasia Macrocytosis Elliptocytes Morphology Comment ABG pH 7.384 ABG pCO2 39.1 ABG pO2 149.6 H ABG HCO3 22.8 ABG Total CO2 24.0 ABG O2 Saturation 98.6 ABG Base Excess -2.0 FiO2 35.00 Sodium 136 Potassium 5.0 Chloride 98 Carbon Dioxide 22 Anion Gap 21.0 H BUN 63 H Creatinine 9.90 H GFR Calculation 6 BUN/Creatinine Ratio 6.00 Glucose 86 POC Glucose 88 Calculated Osmolality 288.0 Calcium 9.2 Magnesium 2.2 Blood Type Antibody Screen Crossmatch - EKG EKG results: interpreted by me EKG shows: sinus rhythm
[2017-01-07 08:54] LABS: Hematocrit 25.5 VOL% (35.7-47.0); Hemoglobin 7.9 GM/DL (12.0-16.0)
[2017-01-07] MEDS: CLOPIDOGREL 75 MG TABLET PO SCH (08:57)
[2017-01-07] MEDS: ENOXAPARIN 30 MG/0.3 ML SYRINGE SUBCUT SCH (08:57)
[2017-01-07] MEDS ORDERED: ASPIRIN EC 81 MG TABLET PO SCH (09:00)
[2017-01-07] MEDS ORDERED: amLODIPine 5 MG TABLET PO SCH (13:00)
[2017-01-07] MEDS ORDERED: PHENYLEPHRINE DRIP 40 MG/250 ML PREMIX IV ONE (13:26)
[2017-01-07] MEDS ORDERED: PHENYLEPHRINE DRIP 40 MG/250 ML PREMIX IV SCH (13:30)
[2017-01-07] MEDS: LEVOFLOXACIN INJ 500 MG in PREMIX 1 EACH IV SCH (13:41)
[2017-01-07] MEDS: METOCLOPRAMIDE 10 MG/2 ML VIAL IV SCH ×3 (13:41→23:48)
[2017-01-07] MEDS: CARVEDILOL 25 MG TABLET PO SCH (13:50)
[2017-01-07] MEDS: hydrALAZINE 25 MG TABLET PO SCH (13:50)
[2017-01-07] MEDS: ISOSORBIDE MONONITRATE 30 MG TABLET PO SCH (13:50)
--- NOTE | 2017-01-07 14:08 | Hospitalist Progress Note ---
Assessment and Plan (1) Cardiac arrest Status: Acute Assessment and plan: Off [place], cont asa and plavix Current Visit: Yes (2) End stage renal disease Status: Chronic Assessment and plan: dialysis today, went hypotensive Current Visit: No (3) Diabetes mellitus Status: Chronic Assessment and plan: Blood sugars better today. Still have to continue to be monitored closely as patient could not tolerate her tube feeding Current Visit: No (4) Anemia Status: Chronic Assessment and plan: 2 units with dialysis today, Coffee ground emesis resolved, Dr. low does not recommend intervention at this time Current Visit: No (5) Acute respiratory failure Status: Acute Assessment and plan: Dr Lozoya managing the vent, cxr cont to have pulmonary edema Current Visit: Yes (6) Pulmonary edema Status: Acute Assessment and plan: dialysis today Current Visit: Yes (7) Hypoxic brain injury Status: Acute Assessment and plan: due to cardiac arrest, EEG done but reading pending, Dr. Balbuena seeing patient Current Visit: Yes (8) Ileus Status: Acute Assessment and plan: kub, hx of gastroparesis, started reglan and lactulose Current Visit: Yes (9) Hypotension Status: Acute Assessment and plan: pulling central line, neosynephrine, hold all blood pressure meds Current Visit: Yes Hospitalist: Subjective Interval history: Patient's IJ needs to be pulled. Discussed with Dr. Nava and Dr. Candelaria Truong from interventional radiology. Spoke with family yesterday and gave them information about prognosis. EEG done but pending reading. Unable to tolerate tube feeding today. More bowel sounds no bowel movement. Start reglan and lactulose. Patient received 2 units packed red blood cells on dialysis today. Patient's blood pressure bottomed out during dialysis had to be started on Walker-Synephrine. All blood pressure medicines are now on hold Exam - Constitutional Vitals: Period Temp Pulse Resp BP Sys/Trejo Pulse Ox Last 24 Hr 98.2 F-98.7 F 66-88 12-20 140-185/55-73 98-140 Exam: Heart Rate-[RRR] Lungs-[CTAB] GI-[+bs soft, NT] Ext-[no edema] Neuro unresponsive to commands and verbal stimuli, no response to pain, pupils fixed and dilated psych unable to access due to neuro status General [no acute distress] Results - Labs CBC & BMP: 01/07/17 08:40 01/07/17 05:23 Lab Results: I have reviewed the past 24 hour labs - Diagnostic Findings Procedure: Chest x-ray: report reviewed by me (pulmonary edema)
[2017-01-07] MEDS: DEXMEDETOMIDINE 200 MCG in SODIUM CHLORIDE 0.9% 48 ML IV SCH (14:09)
[2017-01-07] MEDS: INSULIN REGULAR DRIP 100 ML IV SCH (14:09)
--- NOTE | 2017-01-07 14:50 | XRay Report ---
XR KUB Indication: Ileus Comparison: Abdominal series 04/06/2011. Technique: Supine AP image of the abdomen was obtained. Findings: Enteric contrast is present throughout large bowel. The pattern of bowel gas suggests no evidence of ileus. Vascular calcifications are present. Gallbladder appears surgically absent. Impression: 1. There are no findings to suggest presence of ileus. 01/07/2017 2:47 PM PROCEDURE INTERPRETED AT [facility] DEPARTMENT OF RADIOLOGY Final Report Signed by: Dr. Chris Alvarez
[2017-01-07] MEDS: LACTULOSE 20 GM/30 ML UDCUP PO SCH ×2 (15:34→20:44)
--- NOTE | 2017-01-07 16:24 | Electroencephalogram ---
HISTORY: A 51-year-old patient with a history of change in mental status. INTRODUCTION: A digital EEG was performed using the standard 10/20 system of electrode placement wi th one channel of EKG monitoring. Photic stimulation is performed. DESCRIPTION OF RECORD: The background is somewhat disorganized, consists of 10 to 8 hertz low ampli tude bilaterally symmetrical rhythm. Photic stimulation elicits a driving response at poor flash fr equencies. Hyperventilation was not performed. There are no focal, sharp-wave, spike, or wave acti vity seen. Heart rate 56 beats per minute. IMPRESSION: ABNORMAL EEG DUE TO GENERALIZED SLOWING. CLINICAL CORRELATION: This record is supportive of mild encephalopathy, which could be secondary to postictal state, posthypoxic state, metabolic disorder, diffuse REVIEW SPECIALIST insult, or increased intracrani al pressure. No epileptiform/seizure activity seen. Clinical correlation is suggested.
--- NOTE | 2017-01-07 17:19 | Neurology Progress Note ---
Neurology - PN : Subjective Interval history: Patient seems to be doing about the same. Not waking up. EEG showed generalized slowing. Exam (Progress Note) - Constitutional Vitals: Period Temp Pulse Resp BP Sys/Trejo Pulse Ox Last 24 Hr 98.2 F-98.7 F 65-88 12-20 63-185/32-73 93-100 Exam: GENERAL: Patient is in no acute distress. NECK: Neck is supple. There is no JVD. No carotid bruits present. No thyroid masses. CVS: First and second heart sounds are normal. There is no S3 present. Regular rate and rhythm. RESPIRATORY: Lungs are clear to auscultation without any rales or rhonchi. ABDOMEN: Soft and non-tender. Bowel sounds are present. There is no hepatosplenomegaly. EXT: There is no palpable edema. Peripheral pulses are present. Skin: No rashes Central Nervous system: General: Unresponsive Speech: None Comprehension: None Facial expressions: Normal Cranial Nerves: Pupils are 3 mm fixed and dilated mid position. Doll's head eye movements are negative. Corneals are absent. Motor: Bulk and Tone is normal. Strength: No spontaneous movement seen. Sensory: No movement seen on deep painful stimuli Reflexes: 1+ and symmetrical Cerebellar function: Cannot be assessed Toes: Equivocal Gait: Cannot be assessed Results - Labs CBC & BMP: 01/07/17 08:40 01/07/17 05:23 Assessment and Plan (1) Anoxic encephalopathy Status: Acute Assessment and plan: Continue supportive management. No new recommendations at this time. No seizures on EEG. Current Visit: Yes
[2017-01-07 19:13] LABS: Hematocrit 28.1 VOL% (35.7-47.0); Hemoglobin 8.8 GM/DL (12.0-16.0)
[2017-01-07] MEDS: OXYMETAZOLINE 0.05% NASAL SPRAY 15 ML BOTTLE BOTH NARES PRN (20:04)
[2017-01-07 20:15] LABS: Hematocrit 26.8 VOL% (35.7-47.0); Hemoglobin 8.6 GM/DL (12.0-16.0)
[2017-01-07] MEDS: MINERAL OIL/PETROLATUM OPH OINT 3.5 GM TUBE BOTH EYES SCH (20:45)
--- NOTE | 2017-01-07 20:47 | Gastrointestinal Progress Note ---
Assessment and Plan (1) Coffee ground emesis Status: Acute Assessment and plan: This patient has a history of recent stressful cardiac arrest with resuscitation efforts in the face of prior aspirin and ibuprofen use. She had previous upper endoscopy done back in 2013 which did demonstrate some antritis as well as a stricture, in addition the patient has been under some Reglan and may also have some underlying gastroparesis present. Agree with maximal suppression of the patient's acidity using the Protonix twice daily. I will recheck this patient's hematocrit frequently and if we are dropping significantly we may have to transfuse however I doubt that repeat endoscopy in the short-term is going to be helpful especially in the face of this recent cardiac arrest. We need to continue her anticoagulation and so supportive care is paramount in this situation, and upper endoscopy is unlikely to change the prognosis significantly. If the patient begins to have bright red blood drops her hematocrit precipitously we may be forced to perform upper endoscopy emergently. We will try and avoid suction ulceration by keeping this patient NG tube clamped was being used for medications. We will continue to check her for high residuals to make sure that Reglan is not going to be required given her prior history of probable gastroparesis (she is a renal patient who was previously on Reglan as an outpatient). 01/07/17--The patient's hematocrit has remained between 25.5 and 28.1, currently at 26.8%. She appears to have had some spontaneous bleeding previous anticoagulation. She is still requiring anticoagulation. She is due to reach her 72 hour window off of the [facility] sun protocol to see whether or not she wakes up and has more significant response. The family understands her program prognosis. This patient likely has a ischemia driven ileus and may or may not respond to use of Reglan. I have not started this is this can have sedating effects and we are attempting to give her every opportunity to wake up. We will continue to monitor the patient's hematocrit, I believe she is due to get 2 units of blood as these are listed in the computer is being issued but not transfused yet. Current Visit: Yes (2) History of gastritis Status: Acute Assessment and plan: This was seen by Dr. Pizano back in 2013, the patient is taking Protonix twice daily and is off of her ibuprofen. She continues to get aspirin daily. We will continue to observe the patient's hematocrit and look for for further NG tube loss of blood, at least when checking residuals. 01/07/17--the patient is now having spontaneous bleeding from her nares from the trauma induced by the NG tube. We are continue to watch her hematocrits and suction her stomach upon occasion. I have taken her off of routine suctioning in order to minimize trauma to the stomach. High residuals will likely prevent significant tube feeding here in the short-term. Current Visit: Yes (3) History of esophageal stricture Status: Acute Assessment and plan: We do not have any history of the patient's recent ability to swallow prior to coming into the hospital. Will need to explore this further with family members in the room as they become available. There are none present at this time. We will follow with you in house. Current Visit: Yes Gastroenterology - PN: Subj Interval history: Unfortunately the patient's NG tube came out from the left side and on reinsertion into the right side the patient started having a significant amount of nasal bleeding from the opposite nare. She has been sprayed with Afrin and some nasal packing applied. The patient is otherwise doing well. She is due to get transfused 2 units--in the computer these were reported as issued but not transfused. She remains unresponsive on the ventilator. Exam (Progress Note) - Constitutional Vitals: Period Temp Pulse Resp BP Sys/Trejo Pulse Ox Last 24 Hr 98.2 F-98.7 F 60-88 12-20 63-185/32-73 93-100 General appearance: no acute distress - Head Head exam: Present: normocephalic, atraumatic - ENT ENT exam: Present: other (Nasal bleeding as described above) - Respiratory Respiratory exam: Present: clear to auscultation bilaterally - Cardiovascular Cardiovascular exam: Present: regular rate and rhythm - GI/Abdominal GI/Abdominal exam: Present: normal bowel sounds, soft. Absent: distended, tenderness, rebound - Neurological Exam Neurological exam: Present: altered (Unarousable even with deep painful stimuli) - Psychiatric Psychiatric exam: Present: flat affect Results - Labs CBC & BMP: 01/07/17 20:11 01/07/17 05:23
[2017-01-07] MEDS ORDERED: VANCOMYCIN INJ 750 MG in SODIUM CHLORIDE 0.9% 250 ML IV ONE (21:00)
[2017-01-08] MEDS: ALBUTEROL/IPRATROPIUM 3 ML NEB RESP TX SCH ×4 (00:06→11:05)
[2017-01-08] MEDS: INSULIN LISPRO 100 UNIT/ML SUBCUT SCH ×3 (01:59→09:14)
[2017-01-08] MEDS: PANTOPRAZOLE 40 MG VIAL IV SCH (02:02)
[2017-01-08 05:02] LABS: Basophils % 0.3 % (0.0-0.8); Eosinophils # 0.1 10*3/uL (0.0-0.87); Eosinophils % 1.8 % (0.00-10.9); Hematocrit 24.1 VOL% (35.7-47.0); Hemoglobin 7.6 GM/DL (12.0-16.0); Immature Granulocytes % 0.5 %; Immature Granulocytes Absolute 0.03 #; Lymphocytes % 15.9 % (21.3-54.2); Mean Corpuscular HGB Conc 31.5 GM/DL (32-36); Mean Corpuscular Hemoglobin 23 PG (27-34); Mean Corpuscular Volume 71.3 FL (87-102); Monocytes # 1.1 10*3/uL (0.11-0.8); Neutrophils # 3.9 10*3/uL (1.4-7.4); Neutrophils % 63.5 % (38.7-73.9); Platelet Count 180 T/CUMM (130-400); Red Blood Count 3.38 MC/CUMM (3.8-5.5); Red Cell Distribution Width 21.5 % (9.3-17.3); White Blood Count 6.2 T/CUMM (4-12)
[2017-01-08] MEDS: METOCLOPRAMIDE 10 MG/2 ML VIAL IV SCH ×2 (05:05→14:40)
[2017-01-08 05:26] LABS: Band Neutrophils 1 % (0-10); Eosinophils 1 % (0-10); Hypochromasia 1+; Lymphocytes 23 % (20-55); Microcytosis 1+; Ovalocytes Slight; Segmented Neutrophils 61 % (50-85); Total Cells Counted 100
[2017-01-08 05:27] LABS: Platelet Estimate Adequate
[2017-01-08 05:28] LABS: Calcium 8.6 MG/DL (8.5-10.1); Magnesium 2.1 MG/DL (1.8-2.4); Osmolality,Calculated 289.5 MOS/KG (273-304); Potassium 4.1 MMOL/L (3.5-5.1)
[2017-01-08 05:34] LABS: Bilirubin,Direct 0.1 MG/DL (0.0-0.20); Bilirubin,Indirect 0.5 MG/DL (0.0-1.0); Bilirubin,Total 0.6 MG/DL (0.2-1.0); Total Protein 5.2 G/DL (6.4-8.3)
--- NOTE | 2017-01-08 07:03 | XRay Report ---
Referring Physician: Alma Rosa Jc Exam: XR chest 1V portable Date: January 08, 2017 at 3:19 AM Reason: Ventilation, protocol Comparison: Chest one view portable January 07, 2017 Findings: An endotracheal tube and feeding tube are again in place. The previously seen catheter at the right chest/neck has been removed. The cardiac silhouette is borderline prominent. There are perihilar and bibasilar opacities and interstitial prominence. This is concerning for pulmonary edema and atelectasis, but superimposed pneumonia is not excluded. No pneumothorax is identified, but there is mild left pleural fluid. The osseous structures appear stable. Impression: The previously seen catheter at the right chest/neck has been removed. There has been no other significant change. PROCEDURE INTERPRETED AT [facility] DEPARTMENT OF RADIOLOGY Final Report Signed by: Dr. Houston Chaparro
--- NOTE | 2017-01-08 07:28 | EKG Report ---
Stationary ECG Study [facility] Test Date: 01/08/2017 7:27:03 AM Pat Name: GERMAINE GALARZA Department: Room: 125 Gender: F Eligibility Technician: KANCHAN : 1965 Requested by: Alma Rosa Jc Order Number: [id number] Reading MD: IMANI WATERMAN Intervals [place] Rate: 73 P: 54 MO: 164 QRS: 36 QRSD: 118 T: 210 QT: 402 QTc: 428 Interpretive Statements SINUS RHYTHM MODERATE INTRAVENTRICULAR CONDUCTION DELAY ST DEVIATION AND MODERATE T-WAVE ABNORMALITY, CONSIDER ANTEROLATERAL ISCHEMIA Electronically Signed On 01-08-17 21:43:23 CDT by IMANI WATERMAN [email or web address]
--- NOTE | 2017-01-08 08:15 | Pulmonology Progress Note ---
Pulmonary - PN: Subj Interval history: This 51-year-old lady had a cardiac arrest outside the hospital. She is a dialysis patient and is receiving dialysis this morning. Her blood pressures now in the 160-170 range. She is off pressors. She was on some IV saline which I have stopped this morning. ABGs look okay. She is on Arctic sun for now so we will not try to wean her from the ventilator at this time. 01/05/2017 patient is rewarming now from the Arctic sun. Starting to move a little bit. We will use Precedex if we need to use anything for sedation on the ventilator. Her ABGs look much better. Reducing FiO2. She was dialyzed yesterday and the pulmonary edema is less but still some on the right side. 01/06/2017 patient is back to normal temperature. She is unresponsive. Her pupils were midpoint and not reactive. It appears that she has severe hypoxic brain injury. Neurology needs to see to evaluate. These things will have to be done after she has finished the 72 hour Arctic sun protocol. 01/07/2017 patient is totally unresponsive. Pupils not reactive. Does not respond to pain. Neurology evaluating for severity of brain injury. 01/08/2017 patient remains totally unresponsive. She has no corneal reflexes. EEG showed severe slowing. Continuing mechanical ventilatory support. It appears she has severe hypoxic brain injury and that her prognosis is poor. In my opinion a terminal wean would be indicated. Exam (Progress Note) - Constitutional Vitals: Period Temp Pulse Resp BP Sys/Trejo Pulse Ox Last 24 Hr 98.2 F-98.7 F 60-88 12-19 63-183/32-68 93-100 Exam: Temperature now 98.6 systolic blood pressure in the 110s. Patient unresponsive even to painful stimulus. Face is symmetrical. Pupils midsize and unresponsive. Orotracheal tube in place. Neck supple. Chest reveals some rales bilaterally. Heart rate is around 70 no murmurs. Abdomen no masses. Bowel sounds decreased. Extremities she does have 1+ peripheral edema. Results - Labs CBC & BMP: 01/08/17 04:34 01/08/17 04:34 Lab Results: I have reviewed the past 24 hour labs - Diagnostic Findings Procedure: Chest x-ray: image reviewed by me (Chest x-ray is clear.) Assessment and Plan (1) Acute respiratory failure Status: Acute Assessment and plan: ABGs look okay. Will reduce ventilator settings. Manage the ventilator until we see what her mental status is white. Appears initially to be significant hypoxic brain injury. 01/04/2017 ABGs acceptable. Cannot wean at this point. She has significant hypoxic brain injury it appears. Need to finish the [facility] protocol before considering any weaning process. 01/05/2017 ABGs look good. Reduce FiO2 to 35%. Begin weaning trials. Will use Precedex if any sedation required. We need to see what her mental status is like. 01/06/2017 ABGs are fine on current settings. Cannot wean due to mental status at this point. 01/07/2017 continuing mechanical ventilatory support. Neurology getting EEG today. She has severe hypoxic brain injury. Need to see if this is to the point of brain . 01/08/2017 presently continuing mechanical ventilatory support until decision made about terminal wean Current Visit: Yes (2) End stage renal disease Status: Chronic Assessment and plan: Renal is to see her and arrange dialysis as required. 01/04/2017 patient undergoing dialysis at present. Hopefully this will help with her pulmonary edema. 01/05/17 she was dialyzed yesterday. Chest x-ray has improved pulmonary edema cortes. 01/06/2017 continuing with dialysis per schedule. 01/07/2017 should be dialyzed today. 01/08/2017 defer to nephrology. Current Visit: No (3) Coronary artery disease Status: Chronic Assessment and plan: Known previous myocardial infarction with stents. Unclear if she had a myocardial infarction associated with this. Cardiology is seeing as well. 01/05/2017 status post cardiac arrest. Defer to cardiology. Troponins and CK- MB both markedly elevated. Apparently did have myocardial infarction. 01/06/2017 definite myocardial infarction. 01/07/2017 it appears that she had a myocardial infarction that led to her arrest. Current Visit: No (4) Diabetes mellitus Status: Chronic Assessment and plan: Blood sugar of 341. Sliding scale to be ordered by primary service. 01/04/2017 blood sugars look better. 01/05/2017 blood sugars look okay. 01/06/2017 glucoses well controlled 01/07/2017 no problems with glucoses. 01/09/2017 blood sugars are stable Current Visit: No (5) Cardiac arrest Status: Acute Assessment and plan: Status post cardiac arrest apparently had ventricular tachycardia ventricular fibrillation. Initial evaluation would indicate hypoxic brain injury with dilated pupils. Plan is for Rush zheng and see if her mental status improved. 01/04/2017 post cardiac arrest outside hospital. Appears to have significant brain injury. Continue Rush zheng protocol did not reevaluate neurology cortes in a couple of days 01/05/2017 remains to be seen how much brain injury. 01/06/2017 apparent severe hypoxic brain injury. Neurology consult pending. 01/07/2017 again post cardiac arrest with severe hypoxic brain injury. Await completion of neurologic evaluation with EEG. 01/08/2017 cardiac arrest due to myocardial infarction. Severe hypoxic brain injury. Current Visit: Yes
--- NOTE | 2017-01-08 08:41 | Cardiology Progress Note ---
Assessment and Plan - Time spent with patient Time spent with patient: Greater than 30 minutes (1) Cardiac arrest Status: Acute Assessment and plan: See plan of care listed below Current Visit: Yes (2) Pneumonia Status: Acute Assessment and plan: See plan of care listed below Current Visit: Yes Qualifiers: Pneumonia type: due to unspecified organism (3) Pulmonary edema Status: Acute Assessment and plan: See plan of care listed below Current Visit: Yes (4) Secondary hyperparathyroidism Status: Chronic Assessment and plan: See plan of care listed below Current Visit: No (5) Anemia Status: Chronic Assessment and plan: See plan of care listed below Current Visit: No (6) Coronary artery disease Status: Chronic Assessment and plan: See plan of care listed below Current Visit: No (7) Diabetes mellitus Status: Chronic Assessment and plan: See plan of care listed below Current Visit: No (8) Dyslipidemia Status: Chronic Assessment and plan: See plan of care listed below Current Visit: No (9) End stage renal disease Status: Chronic Assessment and plan: See plan of care listed below Current Visit: No (10) Hypertension Status: Chronic Assessment and plan: See plan of care listed below Current Visit: No (11) S/P angioplasty with stent Status: Chronic Assessment and plan: See plan of care listed below Current Visit: No (12) GI bleed Status: Acute Assessment and plan: SEE PLAN OF CARE LISTED BELOW Current Visit: Yes Cardiology - PN: Subj Interval history: 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 Hollingsworth, 51BF, routinely followed by Dr. Justice. History of Known coronary artery disease (status post PCI to the mid circumflex October 16, 2016 with MARY, EF 70%), hypertension, dyslipidemia, diabetes, obesity, sedentary lifestyle, PVD (known left internal carotid artery occlusion), ESRD requiring dialysis, hyperparathyroidism, anemia. Tuesday, January 03, 2017, patient was received in lateral transfer from [facility] for advanced level of care after witnessed cardiac arrest this morning. She was found to be in ventricular tachycardia. At one point she did require cardioversion. She was loaded with Amiodarone and has not experienced any additional arrhythmia. Hypothermia protocol initiated within appropriate timeframe. CT chest revealed no PE, bilateral lower extremity venous Dopplers negative. CT head revealed no active bleeding or stroke. Chest x-ray revealed pulmonary edema and possible pneumonia. Preliminary blood cultures negative. Patient does not make urine therefore urinalysis has not been obtained. Of note, patient was seen in cardiology clinic October 24, 2016. At that point, she had reported taking Brilinta only once daily because it made her feel poorly. She was given a prescription for Plavix 75 mg orally daily. After contacting her pharmacy, it is noted that she did take one prescription for Plavix 75 mg orally daily on October 29, 2016 but never returned for additional refills. JANUARY 06, 2017: Currently in the rewarming phase. At 98.6F at present. No additional arrythmias noted since admission. She is not responding to stimuli at this point. Off pressors. She received Plavix 75mg on Friday and is currently on ECASA 325mg daily. She has been oozing from IV access sites. Anemia is being monitored. It is likely she may have thrombosed stent after stopping Plavix causing acute stent thrombosis. Neurology has been consulted. Echocardiogram reveals EF 50%, PAP 93 mmHg. Will give Plavix again today and further discuss with Dr. Sweet. Await additional recommendations. JANUARY 07, 2017: Overnight, patient's condition remains unchanged. She has reached appropriate warming temperature per protocol around 0400 this morning. We await the next 24 hours and hope to see some improvement neurologically. Patient's blood pressure remains elevated and today I will increase her hydralazine 3 times daily. Continue aspirin and Plavix. Unless there is obvious bleeding, these will not be stopped. Continue to follow labs closely. We are holding lipid-lowering agent at this time as she did have elevated LFTs. LFTs in am. We will reincorporate when able. JANUARY 08, 2017: Unfortunately, no improvement in patient's condition. In fact, she has had lower GI bleeding per RN. She had a dark maroon stool during the night. She is oozing blood from her nares and mouth. She required 2 units packed red blood cells overnight. She has no corneal reflexes. EEG reveals severe slowing. Her prognosis is poor. At this point, aspirin and Plavix were held this morning in light of her anemia and GI bleed. ASSESSMENT/PLAN: 1. CARDIAC ARREST - Now on ventilator without appropriate neurological response at this time. Poor prognosis. Pupils fixed and dilated. No corneal reflexes. 2. KNOWN CAD S/P PCI OCTOBER 16, 2016 -unfortunately, due to anemia and GI bleed we are forced to hold her aspirin and Plavix. 3. SEPSIS - being treated accordingly. 4. PNEUMONIA - continue current plan of care 5. NON-COMPLIANCE - continue current plan of care 6. HYPERTENSION - suboptimally controlled. Tolerating Coreg. 7. DYSLIDEMIA - add lipid lowering agent when liver enzymes stable. 8. CKD - Nephrology following. 9. SUSPECTED ANOXIC BRAIN INJURY - continue current plan of care. 10. GI BLEED - holding ASA and Plavix as of this morning Exam (Progress Note) - Constitutional Vitals: Period Temp Pulse Resp BP Sys/Trejo Pulse Ox Last 24 Hr 98.2 F-98.7 F 60-88 12-19 63-183/32-68 93-100 Exam: Exam: General: [Intubated.] [Appears ill,] [hypothermia protocol in place ] HEENT: [Pupils equal but nonreactive to light or accommodation. Moderately dilated, fixed. Normocephalic. No jaundice noted. ] Bright red oozing of blood from the nares and mouth. Neck: Difficult to assess for JVD due to habitus. No thyromegaly noted. Neck lymphadenopathy. No tracheal deviation. Cardiac: [Regular rate and rhythm.] [No obvious murmur rub or gallop.] Lungs: [Coarse sounds noted throughout. Symmetrical chest wall movements noted. Abdomen: Soft, bowel sounds normoactive. Nontender and nondistended. No abdominal bruit or thrill noted. No masses noted. Extremities: No clubbing, cyanosis noted. [ 2+ generalized edema noted.] Upper extremity pulses 2+. Lower extremity pulses 2+. Capillary refill less than 3 seconds. Skin: No unusual lesions or rashes. No skin breakdown appreciated. Neuro: Not responding to verbal or tactile stimuli. Pupils are fixed and dilated. No tremors noted at present. Result/EKG - Labs CBC & BMP: 01/08/17 08:37 01/08/17 04:34 Lab Results: I have reviewed the past 24 hour labs Labs: Laboratory Results - last 24 hr 01/06/17 01/07/17 01/07/17 04:45 08:40 11:02 WBC RBC Hgb 7.9 L Hct 25.5 L MCV MCH MCHC RDW Plt Count Neut % (Auto) Lymph % (Auto) [place] % (Auto) Eos % (Auto) Baso % (Auto) Neut # (Auto) Lymph # (Auto) [place] # (Auto) Eos # (Auto) Baso # (Auto) Total Counted Immature Gran % Nucleated RBC % Immature Gran # Segmented Neutrophils Band Neutrophils Lymphocytes Monocytes Eosinophils Nucleated RBCs # Platelet Estimate Hypochromasia Microcytosis Ovalocytes Sodium Potassium Chloride Carbon Dioxide Anion Gap BUN Creatinine GFR Calculation BUN/Creatinine Ratio Glucose POC Glucose 98 Calculated Osmolality Calcium Magnesium Total Bilirubin Direct Bilirubin Indirect Bilirubin AST ALT Alkaline Phosphatase Total Protein Albumin Blood Type O POSITIVE Antibody Screen Negative Crossmatch See Detail 01/07/17 01/07/17 01/07/17 14:13 17:53 18:27 WBC RBC Hgb 8.8 L Hct 28.1 L MCV MCH MCHC RDW Plt Count Neut % (Auto) Lymph % (Auto) [place] % (Auto) Eos % (Auto) Baso % (Auto) Neut # (Auto) Lymph # (Auto) [place] # (Auto) Eos # (Auto) Baso # (Auto) Total Counted Immature Gran % Nucleated RBC % Immature Gran # Segmented Neutrophils Band Neutrophils Lymphocytes Monocytes Eosinophils Nucleated RBCs # Platelet Estimate Hypochromasia Microcytosis Ovalocytes Sodium Potassium Chloride Carbon Dioxide Anion Gap BUN Creatinine GFR Calculation BUN/Creatinine Ratio Glucose POC Glucose 114 H 119 H Calculated Osmolality Calcium Magnesium Total Bilirubin Direct Bilirubin Indirect Bilirubin AST ALT Alkaline Phosphatase Total Protein Albumin Blood Type Antibody Screen Crossmatch 01/07/17 01/07/17 01/07/17 20:11 20:18 22:40 WBC RBC Hgb 8.6 L Hct 26.8 L MCV MCH MCHC RDW Plt Count Neut % (Auto) Lymph % (Auto) [place] % (Auto) Eos % (Auto) Baso % (Auto) Neut # (Auto) Lymph # (Auto) [place] # (Auto) Eos # (Auto) Baso # (Auto) Total Counted Immature Gran % Nucleated RBC % Immature Gran # Segmented Neutrophils Band Neutrophils Lymphocytes Monocytes Eosinophils Nucleated RBCs # Platelet Estimate Hypochromasia Microcytosis Ovalocytes Sodium Potassium Chloride Carbon Dioxide Anion Gap BUN Creatinine GFR Calculation BUN/Creatinine Ratio Glucose POC Glucose 121 H 117 H Calculated Osmolality Calcium Magnesium Total Bilirubin Direct Bilirubin Indirect Bilirubin AST ALT Alkaline Phosphatase Total Protein Albumin Blood Type Antibody Screen Crossmatch 01/07/17 01/08/17 01/08/17 23:57 01:46 04:10 WBC RBC Hgb Hct MCV MCH MCHC RDW Plt Count Neut % (Auto) Lymph % (Auto) [place] % (Auto) Eos % (Auto) Baso % (Auto) Neut # (Auto) Lymph # (Auto) [place] # (Auto) Eos # (Auto) Baso # (Auto) Total Counted Immature Gran % Nucleated RBC % Immature Gran # Segmented Neutrophils Band Neutrophils Lymphocytes Monocytes Eosinophils Nucleated RBCs # Platelet Estimate Hypochromasia Microcytosis Ovalocytes Sodium Potassium Chloride Carbon Dioxide Anion Gap BUN Creatinine GFR Calculation BUN/Creatinine Ratio Glucose POC Glucose 111 H 128 H 154 H Calculated Osmolality Calcium Magnesium Total Bilirubin Direct Bilirubin Indirect Bilirubin AST ALT Alkaline Phosphatase Total Protein Albumin Blood Type Antibody Screen Crossmatch 01/08/17 01/08/17 01/08/17 04:34 04:34 04:34 WBC 6.2 D RBC 3.38 L Hgb 7.6 L Hct 24.1 L MCV 71.3 L MCH 23 L MCHC 31.5 L RDW 21.5 H Plt Count 180 D Neut % (Auto) 63.5 Lymph % (Auto) 15.9 L Amite % (Auto) 18.0 H Eos % (Auto) 1.8 Baso % (Auto) 0.3 Neut # (Auto) 3.9 Lymph # (Auto) 1.0 L [place] # (Auto) 1.1 H Eos # (Auto) 0.1 Baso # (Auto) 0.0 Total Counted 100 Immature Gran % 0.5 Nucleated RBC % 0.0 Immature Gran # 0.03 Segmented Neutrophils 61 Band Neutrophils 1 Lymphocytes 23 Monocytes 14 Eosinophils 1 Nucleated RBCs # 0.00 Platelet Estimate Adequate Hypochromasia 1+ Microcytosis 1+ Ovalocytes Slight Sodium 139 Potassium 4.1 Chloride 100 Carbon Dioxide 25 Anion Gap 18.1 H BUN 44 H D Creatinine 7.30 H GFR Calculation 8 BUN/Creatinine Ratio 6.00 Glucose 133 H POC Glucose Calculated Osmolality 289.5 Calcium 8.6 Magnesium 2.1 Total Bilirubin 0.60 Direct Bilirubin 0.10 Indirect Bilirubin 0.5 AST 78 H ALT 23 Alkaline Phosphatase 153 H Total Protein 5.2 L Albumin 2.0 L Blood Type Antibody Screen Crossmatch 01/08/17 01/08/17 01/08/17 05:48 05:58 08:15 WBC RBC Hgb Hct MCV MCH MCHC RDW Plt Count Neut % (Auto) Lymph % (Auto) [place] % (Auto) Eos % (Auto) Baso % (Auto) Neut # (Auto) Lymph # (Auto) [place] # (Auto) Eos # (Auto) Baso # (Auto) Total Counted Immature Gran % Nucleated RBC % Immature Gran # Segmented Neutrophils Band Neutrophils Lymphocytes Monocytes Eosinophils Nucleated RBCs # Platelet Estimate Hypochromasia Microcytosis Ovalocytes Sodium Potassium Chloride Carbon Dioxide Anion Gap BUN Creatinine GFR Calculation BUN/Creatinine Ratio Glucose POC Glucose 118 H 128 H 157 H Calculated Osmolality Calcium Magnesium Total Bilirubin Direct Bilirubin Indirect Bilirubin AST ALT Alkaline Phosphatase Total Protein Albumin Blood Type Antibody Screen Crossmatch - Diagnostic Findings Procedure: Chest x-ray: report reviewed by me - EKG EKG results: interpreted by me EKG shows: sinus rhythm
[2017-01-08 08:45] LABS: Hematocrit 23.3 VOL% (35.7-47.0); Hemoglobin 7.5 GM/DL (12.0-16.0)
[2017-01-08] MEDS: LACTULOSE 20 GM/30 ML UDCUP PO SCH (09:17)
[2017-01-08] MEDS: OXYMETAZOLINE 0.05% NASAL SPRAY 15 ML BOTTLE BOTH NARES PRN (09:25)
--- NOTE | 2017-01-08 12:00 | Nephrology Progress Note ---
Nephrology - PN: Subj Interval history: Patient remains unresponsive. Physical exam general the patient is chronically ill-appearing, pupils are nonreactive to light, lungs are clear to auscultation anteriorly, heart is regular rate and rhythm, she has trace pretibial edema, abdomen is soft with decreased bowel sounds Assessment/plan 1. End-stage renal disease-we will continue hemodialysis support 2. Cardiac arrest-this patient seems to have sustained a significant hypoxic brain injury, she has had no response since admission she has been off sedation for several days now 3. Diabetes mellitus we will continue to monitor with serial glucose levels 4. Respiratory failure continue vent support Exam (PN)-Nephrology - Vital Signs Vital signs: Period Temp Pulse Resp BP Sys/Trejo Pulse Ox Last 24 Hr 98.2 F-98.7 F 60-88 12-18 63-180/32-68 93-100 - Lab 01/08/17 08:37 01/08/17 04:34 Most recent lab results ABG pH 7.384 (7.35-7.45) 01/07/17 07:10 ABG pCO2 39.1 MM HG (35-48) 01/07/17 07:10 ABG pO2 149.6 MM HG (80-95) H 01/07/17 07:10 ABG HCO3 22.8 MMOL/L (20-26) 01/07/17 07:10 ABG O2 Saturation 98.6 % (95-100) 01/07/17 07:10 Calcium 8.6 MG/DL (8.5-10.1) 01/08/17 04:34 Phosphorus 7.8 MG/DL (2.5-4.9) H 01/06/17 04:45 Magnesium 2.1 MG/DL (1.8-2.4) 01/08/17 04:34 Assessment and Plan (1) Pulmonary edema Status: Acute Assessment and plan: This patient has some increased interstitial markings possibly related to pneumonia versus, at this point with her cardiac arrest 2 and tenuous status I am going to hold on dialyzing her until tomorrow. Patient is oxygenating okay presently. Current Visit: Yes (2) Acute respiratory failure Status: Acute Assessment and plan: Continue vent support Current Visit: Yes (3) Cardiac arrest Status: Acute Current Visit: Yes (4) Secondary hyperparathyroidism Status: Chronic Current Visit: No (5) Anemia Status: Chronic Current Visit: No (6) Coronary artery disease Status: Chronic Current Visit: No (7) Diabetes mellitus Status: Chronic Current Visit: No (8) Dyslipidemia Status: Chronic Current Visit: No (9) End stage renal disease Status: Chronic Assessment and plan: We will plan on hemodialysis tomorrow Current Visit: No (10) Hypertension Status: Chronic Current Visit: No (11) S/P angioplasty with stent Status: Chronic Current Visit: No
--- NOTE | 2017-01-08 13:06 | Nuclear Medicine Report ---
History: Brain Date: 01/08/2017 Study: Nuclear medicine brain study with vascular flow images Comparison exam: No similar Following the IV administration of 25 mCi technetium 99m Ceretec, flow and delayed images were obtained over the chest, head, and neck. There is no evidence of intracranial arterial flow on the immediate flow images. There is no brain parenchymal or venous sinus activity after 15 minutes. Impression: Scintigraphic evidence of brain PROCEDURE INTERPRETED AT [facility] DEPARTMENT OF RADIOLOGY Final Report Signed by: Dr. Candelaria Truong
--- NOTE | 2017-01-08 14:35 | Hospitalist Progress Note ---
Assessment and Plan (1) Cardiac arrest Status: Acute Assessment and plan: Patient is brain we will remove her ET tube and family ready. Current Visit: Yes (2) End stage renal disease Status: Chronic Current Visit: No (3) Diabetes mellitus Status: Chronic Current Visit: No (4) Anemia Status: Chronic Current Visit: No (5) Acute respiratory failure Status: Acute Assessment and plan: Current Visit: Yes (6) Pulmonary edema Status: Acute Current Visit: Yes (7) Hypoxic brain injury Status: Acute Assessment and plan: EEG shows slowing of brain activity from several days ago. No seizure activity was noted Current Visit: Yes (8) Ileus Status: Acute Assessment and plan: High tube feed residuals unable to continue tube feeds Current Visit: Yes (9) Hypotension Status: Acute Assessment and plan: Currently still on Walker-Synephrine Current Visit: Yes Hospitalist: Subjective Interval history: I met with the patient's son and his separately. I informed him that the cerebral blood flow study showed no brain activity in that she was officially brain . I then met with the rest of the family which included her sisters and nephews and nieces and told them that the cerebral point blood flow showed no activity to the brain. I will give family time with her and then I will withdraw the tube. Her aspirin, Plavix, Lovenox was all stopped today due to the bleeding which has continued through her NG. We have removed clots of blood in her hemoglobin is low today. EEG was read yesterday and shows slowing of activity no seizure activity Exam - Constitutional Vitals: Period Temp Pulse Resp BP Sys/Trejo Pulse Ox Last 24 Hr 98.1 F-98.7 F 60-78 12-18 98-142/37-62 94-100 Exam: Heart Rate-[RRR] Lungs-[CTAB] GI-[+bs soft, NT] Ext-[no edema] Neuro unresponsive to commands and verbal stimuli, no response to pain, pupils fixed and dilated, no gag, no breathing over the vent psych unable to access due to neuro status General [no acute distress] Results - Labs CBC & BMP: 01/08/17 08:37 01/08/17 04:34 Lab Results: I have reviewed the past 24 hour labs - Diagnostic Findings Procedure: X-ray: report reviewed by me (Cerebral blood flow study confirms brain )
[2017-01-08 15:11] VITALS: BP 128/52
--- NOTE | 2017-01-08 17:28 | Discharge Summary ---
Hospital Course - Hospital Course Hospital Course: 51 [id number] -Citizen Of [place] female with a history of coronary artery disease with her last stents in October 16, 2016 had decided to reduce her dose of brilinta to once a day because it was making her feel bad. She was then prescribed Plavix which we dont think she was taking. She has a history of hypertension diabetes morbid obesity and end-stage renal disease on dialysis. Patient had a witnessed cardiac arrest in her family took her to meet the ambulance when she became unresponsive she was started immediately on CPR was intubated shocked and transported in to [place] emergency room. Patient was started on amiodarone drip for ventricular tachycardia and sent to [facility] for admission. Cardiology was consulted. She was placed on Arctic sun and started on aspirin and Plavix. CT of her chest shows no PE and venous Dopplers were negative for DVT. Head CT showed no active bleed. Dr. Juanito Bonds from neurology was consulted and did an EEG which showed very slow brain activity without evidence to support seizures. Patient had some pulmonary edema and became hypotensive when she was dialyzed. Patient then was placed on Walker- Synephrine. Patient had trouble with gastroparesis and despite IV Reglan she developed an ileus secondary to illness and would not tolerate her tube feeds. She was anemic and received 2 units of packed red blood cells. Patient's physical exam remained unchanged since admission. She was unresponsive to pain. Her pupils were fixed and dilated. She initially was breathing over the vent but this worsened and she was no longer breathing over the vent. Patient showed no response to verbal stimuli. Had several meetings with family to discuss prognosis. Patient develops bleeding secondary to Plavix and aspirin from irritation will most likely from the NG tube. The Plavix and aspirin were discontinued this morning when her hemoglobin had dropped to 7.9. More than 24 hours after Arctic sun there was no improvement in her neurological condition. Patient was sent for cerebral blood flow study today which showed no evidence of cerebral blood flow consistent with brain . Patient was determined at 1303. Family visited after meeting with myself and informed of her . The tube was then removed and all pressors and medications were discontinued. Family thanked me for my caring concern. - Time spent with patient Time with patient DS: Greater than 30 minutes (60 min) Diagnosis - Discharge Diagnosis (1) Cardiac arrest Status: Acute (2) End stage renal disease Status: Chronic (3) Diabetes mellitus Status: Chronic (4) Anemia Status: Chronic (5) Acute respiratory failure Status: Acute (6) Pulmonary edema Status: Acute (7) Hypoxic brain injury Status: Acute (8) Ileus Status: Acute (9) Hypotension Status: Acute Discharge Plan - Discharge Data Disposition: - Discharge Medications No Action Zolpidem Tartrate [Ambien] 10 mg PO BEDTIME traMADol TAB [Ultram] 50 mg PO Q6HR Omeprazole 20 mg PO DAILY NIFEdipine XL TAB [Procardia Xl] 90 mg PO DAILY Insulin Glargine [Lantus] 37 unit SUBCUT BEDTIME Ferrous Sulfate 325 mg PO DAILY Rosuvastatin [Crestor] 20 mg PO DAILY Carvedilol [Coreg] 25 mg PO BID Cinacalcet HCl [Sensipar] 120 mg PO DAILY W/SUPPER Hydralazine HCl 100 mg PO TID Insulin Aspart [NovoLOG FlexPen] 0 unit SUBCUT DIRECTED PRN PRN Reason: elevated blood sugars Aspirin EC Tab 81 mg PO DAILY tablet Sevelamer Carbonate Tab [Renvela Tab] 1,600 mg PO BID Sevelamer Carbonate Tab [Renvela Tab] 3,200 mg PO TID W/MEALS Metoclopramide HCl 10 mg PO BID cefUROXime axetil [Cefuroxime] 250 mg PO BID Calcium Carbonate/Vitamin D3 [Calcium 600-Vit D3 400 Tablet] 1 each PO DAILY Ibuprofen [Advil] 200 mg PO BID PRN PRN Reason: Pain Docusate Sodium Cap [Colace Cap] 100 mg PO DAILY Citalopram Hydrobromide [Celexa] 10 mg PO DAILY Ticagrelor [Brilinta] 90 mg PO BID #60 tablet - Follow Up or Referral - Forms/Instructions Exam - Constitutional Vitals: Period Temp Pulse Resp BP Sys/Trejo Pulse Ox Last 24 Hr 98.1 F-98.7 F 70-77 12-18 98-142/37-62 94-100 Discharge Results Labs on day of discharge: Labs from last 24 hours 01/08/17 01/08/17 01/08/17 10:02 08:37 08:15 WBC RBC Hgb 7.5 L Hct 23.3 L MCV MCH MCHC RDW Plt Count Neut % (Auto) Lymph % (Auto) [place] % (Auto) Eos % (Auto) Baso % (Auto) Neut # (Auto) Lymph # (Auto) [place] # (Auto) Eos # (Auto) Baso # (Auto) Total Counted Immature Gran % Nucleated RBC % Immature Gran # Segmented Neutrophils Band Neutrophils Lymphocytes Monocytes Eosinophils Nucleated RBCs # Platelet Estimate Hypochromasia Microcytosis Ovalocytes Sodium Potassium Chloride Carbon Dioxide Anion Gap BUN Creatinine GFR Calculation BUN/Creatinine Ratio Glucose POC Glucose 155 H 157 H Calculated Osmolality Calcium Magnesium Total Bilirubin Direct Bilirubin Indirect Bilirubin AST ALT Alkaline Phosphatase Total Protein Albumin Blood Type Antibody Screen Crossmatch 01/08/17 01/08/17 01/08/17 05:58 05:48 04:34 WBC RBC Hgb Hct MCV MCH MCHC RDW Plt Count Neut % (Auto) Lymph % (Auto) [place] % (Auto) Eos % (Auto) Baso % (Auto) Neut # (Auto) Lymph # (Auto) [place] # (Auto) Eos # (Auto) Baso # (Auto) Total Counted Immature Gran % Nucleated RBC % Immature Gran # Segmented Neutrophils Band Neutrophils Lymphocytes Monocytes Eosinophils Nucleated RBCs # Platelet Estimate Hypochromasia Microcytosis Ovalocytes Sodium 139 Potassium 4.1 Chloride 100 Carbon Dioxide 25 Anion Gap 18.1 H BUN 44 H D Creatinine 7.30 H GFR Calculation 8 BUN/Creatinine Ratio 6.00 Glucose 133 H POC Glucose 128 H 118 H Calculated Osmolality 289.5 Calcium 8.6 Magnesium 2.1 Total Bilirubin Direct Bilirubin Indirect Bilirubin AST ALT Alkaline Phosphatase Total Protein Albumin Blood Type Antibody Screen Crossmatch 01/08/17 01/08/17 01/08/17 04:34 04:34 04:10 WBC 6.2 D RBC 3.38 L Hgb 7.6 L Hct 24.1 L MCV 71.3 L MCH 23 L MCHC 31.5 L RDW 21.5 H Plt Count 180 D Neut % (Auto) 63.5 Lymph % (Auto) 15.9 L [place] % (Auto) 18.0 H Eos % (Auto) 1.8 Baso % (Auto) 0.3 Neut # (Auto) 3.9 Lymph # (Auto) 1.0 L [place] # (Auto) 1.1 H Eos # (Auto) 0.1 Baso # (Auto) 0.0 Total Counted 100 Immature Gran % 0.5 Nucleated RBC % 0.0 Immature Gran # 0.03 Segmented Neutrophils 61 Band Neutrophils 1 Lymphocytes 23 Monocytes 14 Eosinophils 1 Nucleated RBCs # 0.00 Platelet Estimate Adequate Hypochromasia 1+ Microcytosis 1+ Ovalocytes Slight Sodium Potassium Chloride Carbon Dioxide Anion Gap BUN Creatinine GFR Calculation BUN/Creatinine Ratio Glucose POC Glucose 154 H Calculated Osmolality Calcium Magnesium Total Bilirubin 0.60 Direct Bilirubin 0.10 Indirect Bilirubin 0.5 AST 78 H ALT 23 Alkaline Phosphatase 153 H Total Protein 5.2 L Albumin 2.0 L Blood Type Antibody Screen Crossmatch 01/08/17 01/07/17 01/07/17 01:46 23:57 22:40 WBC RBC Hgb Hct MCV MCH MCHC RDW Plt Count Neut % (Auto) Lymph % (Auto) [place] % (Auto) Eos % (Auto) Baso % (Auto) Neut # (Auto) Lymph # (Auto) [place] # (Auto) Eos # (Auto) Baso # (Auto) Total Counted Immature Gran % Nucleated RBC % Immature Gran # Segmented Neutrophils Band Neutrophils Lymphocytes Monocytes Eosinophils Nucleated RBCs # Platelet Estimate Hypochromasia Microcytosis Ovalocytes Sodium Potassium Chloride Carbon Dioxide Anion Gap BUN Creatinine GFR Calculation BUN/Creatinine Ratio Glucose POC Glucose 128 H 111 H 117 H Calculated Osmolality Calcium Magnesium Total Bilirubin Direct Bilirubin Indirect Bilirubin AST ALT Alkaline Phosphatase Total Protein Albumin Blood Type Antibody Screen Crossmatch 01/07/17 01/07/17 01/07/17 20:18 20:11 18:27 WBC RBC Hgb 8.6 L 8.8 L Hct 26.8 L 28.1 L MCV MCH MCHC RDW Plt Count Neut % (Auto) Lymph % (Auto) [place] % (Auto) Eos % (Auto) Baso % (Auto) Neut # (Auto) Lymph # (Auto) [place] # (Auto) Eos # (Auto) Baso # (Auto) Total Counted Immature Gran % Nucleated RBC % Immature Gran # Segmented Neutrophils Band Neutrophils Lymphocytes Monocytes Eosinophils Nucleated RBCs # Platelet Estimate Hypochromasia Microcytosis Ovalocytes Sodium Potassium Chloride Carbon Dioxide Anion Gap BUN Creatinine GFR Calculation BUN/Creatinine Ratio Glucose POC Glucose 121 H Calculated Osmolality Calcium Magnesium Total Bilirubin Direct Bilirubin Indirect Bilirubin AST ALT Alkaline Phosphatase Total Protein Albumin Blood Type Antibody Screen Crossmatch 01/07/17 01/06/17 17:53 04:45 WBC RBC Hgb Hct MCV MCH MCHC RDW Plt Count Neut % (Auto) Lymph % (Auto) [place] % (Auto) Eos % (Auto) Baso % (Auto) Neut # (Auto) Lymph # (Auto) [place] # (Auto) Eos # (Auto) Baso # (Auto) Total Counted Immature Gran % Nucleated RBC % Immature Gran # Segmented Neutrophils Band Neutrophils Lymphocytes Monocytes Eosinophils Nucleated RBCs # Platelet Estimate Hypochromasia Microcytosis Ovalocytes Sodium Potassium Chloride Carbon Dioxide Anion Gap BUN Creatinine GFR Calculation BUN/Creatinine Ratio Glucose POC Glucose 119 H Calculated Osmolality Calcium Magnesium Total Bilirubin Direct Bilirubin Indirect Bilirubin AST ALT Alkaline Phosphatase Total Protein Albumin Blood Type O POSITIVE Antibody Screen Negative Crossmatch See Detail DS: Provider Date of admission: 01/03/17 08:58 Primary care physician: Garima Rodrigues, Attending physician on admission: Alma Rosa Jc MD Consults: 01/03/17 07:53 Consult to Physician [CONS] Routine Comment: Consulting Provider: Jasiel Lozoya When should Consulting Provider be notified: In am Person Notified: dr lozoya office staff Date Notified: 01/03/17 Time Notified: 10:15 01/03/17 07:54 Consult to Physician [CONS] Routine Comment: Consulting Provider: Tito Garcia When should Consulting Provider be notified: Now Person Notified: ALEX Date Notified: 01/03/17 Time Notified: 10:00 Consult Notification Comment: yannick sanchez aware of consult 01/03/17 09:11 Consult to Physician [CONS] Routine Comment: post arrest Consulting Provider: Bill Hunt Person Notified: dr hunt office Date Notified: 01/03/17 Time Notified: 10:33 Consult Notification Comment: states on bypass this until friday ,, called office @ 1010 01/06 left voicemail about consult 01/03/17 09:23 Consult to Pharmacy [CONS] Routine Reason for Pharmacy Consult: Dose/Manage Antibiotics Dose/Manage Vancomycin Comment: please adjust antibiotic doses for renal disease 01/03/17 10:23 Consult to Physician [CONS] Routine Comment: esrd,dialysis Consulting Provider: Raymundo Hernandez Jr. Person Notified: liliana Date Notified: 01/03/17 Time Notified: 10:25 Consult Notification Comment: left message 01/03/17 12:22 Consult to Pastoral Services [CONS] Routine Comment: Pastoral Screen: Request Risk Assessment Consultant Visit Pastoral Screen Source of Request: Family Other 01/03/17 12:42 Consult to Anesthesiology [CONS] Routine Consulting Provider: Reason for Anesthesiology: Central Line Arterial Line 01/06/17 08:00 Consult to Dietitian [CONS] Routine Reason for Dietitian: TF-Initiate/Manage 01/06/17 13:59 Consult to Physician [CONS] Routine Comment: coffee ground emesis, must have asa and plavix Consulting Provider: Magdiel Doherty Discharging clinician: Yamile Blanco MD
== END 2017-01-08 13:03 | disposition expired | DRG 296 ==
LOC: SUATTDRO 08:58 → N.CC 08:58
PROVIDERS: ADMIT Internal Medicine; ATTEND Internal Medicine